=== PATIENT | female | born 1985 | race Caucasian/White ===

== ENCOUNTER → 2016-02-09 | Outpatient (CLI) | payer MEDICAID ==
[2016-02-09 14:46] LABS: HEMATOCRIT 33.6 % (36.0-47.0); HEMOGLOBIN 11.4 g/dL (12.0-15.5); HGB HCT DIFFERENCE 0.6; MEAN CORPUSCULAR HEMOGLOBIN 28.5 pg (27.0-33.4); MEAN CORPUSCULAR HGB CONC 33.8 g/dL (32.0-36.0); MEAN CORPUSCULAR VOLUME 84 fl (80-97); RED BLOOD COUNT 3.99 10^6/uL (3.72-5.28); WHITE BLOOD COUNT 10.1 10^3/uL (4.0-10.5)
[2016-02-09 15:00] LABS: ASPARTATE AMINO TRANSFERASE 16 U/L (14-36); CREATININE RESULT 0.56 mg/dL (0.52-1.25); LDH 360 U/L (313-618); URIC ACID 3.6 mg/dL (2.5-6.2)
== END ==
LOC: OD 13:42
PROVIDERS: ATTEND Registered Nurse Women's Health Care, Ambulatory
DX: O14.90 Unspecified pre-eclampsia, unspecified trimester (principal)
CPT/HCPCS: 36415; 82565; 83615; 84450; 84460; 84550; 85027

== ENCOUNTER → 2016-02-14 | Outpatient (CLI) | payer MEDICAID ==
[2016-02-14 11:37] LABS: HEMATOCRIT 34.5 % (36.0-47.0); HEMOGLOBIN 11.5 g/dL (12.0-15.5); MEAN CORPUSCULAR HEMOGLOBIN 28.1 pg (27.0-33.4); MEAN CORPUSCULAR HGB CONC 33.3 g/dL (32.0-36.0); MEAN CORPUSCULAR VOLUME 85 fl (80-97); RED BLOOD COUNT 4.09 10^6/uL (3.72-5.28); RED CELL DISTRIBUTION WIDTH 12.5 % (11.5-14.0); WHITE BLOOD COUNT 9.1 10^3/uL (4.0-10.5)
[2016-02-14 11:55] LABS: ASPARTATE AMINO TRANSFERASE 16 U/L (14-36); LDH 387 U/L (313-618); URIC ACID 3.5 mg/dL (2.5-6.2)
[2016-02-14 12:15] LABS: FREE T3 3.32 pg/mL (2.77-5.27)
[2016-02-14 12:28] LABS: THYROID STIMULATING HORMONE 2.83 uIU/mL (0.47-4.68)
== END ==
LOC: OD 10:56
PROVIDERS: ATTEND Registered Nurse Women's Health Care, Ambulatory
DX: O14.90 Unspecified pre-eclampsia, unspecified trimester (principal); O99.280 Endocrine, nutritional and metabolic diseases complicating pregnancy, unspecified trimester; E03.9 Hypothyroidism, unspecified
CPT/HCPCS: 36415; 82565; 82728; 83540; 83550; 83615; 84439; 84443; 84450; 84481; 84550; 85027

== ENCOUNTER → 2016-02-21 | Outpatient (CLI) | payer MEDICAID ==
[2016-02-21 12:38] LABS: HEMOGLOBIN 10.5 g/dL (12.0-15.5); HGB HCT DIFFERENCE -0.5; MEAN CORPUSCULAR HEMOGLOBIN 27.9 pg (27.0-33.4); MEAN CORPUSCULAR HGB CONC 32.9 g/dL (32.0-36.0); MEAN CORPUSCULAR VOLUME 85 fl (80-97); RED BLOOD COUNT 3.78 10^6/uL (3.72-5.28); WHITE BLOOD COUNT 9.4 10^3/uL (4.0-10.5)
[2016-02-21 12:45] LABS: APPEARANCE,URINE CLEAR; BILIRUBIN,URINE NEGATIVE (NEGATIVE); GLUCOSE, URINE NEGATIVE (NEGATIVE); KETONES,URINE NEGATIVE (NEGATIVE); LEUKOCYTE ESTERASE,URINE NEGATIVE (NEGATIVE); NITRITE,URINE NEGATIVE (NEGATIVE); PROTEIN,URINE NEGATIVE (NEGATIVE); URINE SPECIFIC GRAVITY 1.006; UROBILINOGEN,URINE NEGATIVE mg/dL (<2.0)
[2016-02-21 13:09] LABS: ASPARTATE AMINO TRANSFERASE 27 U/L (14-36); CREATININE RESULT 0.63 mg/dL (0.52-1.25); LDH 391 U/L (313-618)
== END ==
LOC: OD 11:45
PROVIDERS: ATTEND Registered Nurse Women's Health Care, Ambulatory
DX: O14.90 Unspecified pre-eclampsia, unspecified trimester (principal); Z3A.00 Weeks of gestation of pregnancy not specified
CPT/HCPCS: 36415; 81001; 82565; 83615; 84450; 85027

== ENCOUNTER → 2016-02-28 | Outpatient (CLI) | payer MEDICAID ==
[2016-02-28 14:24] LABS: HEMATOCRIT 31.6 % (36.0-47.0); HEMOGLOBIN 10.2 g/dL (12.0-15.5); MEAN CORPUSCULAR HEMOGLOBIN 27.3 pg (27.0-33.4); MEAN CORPUSCULAR HGB CONC 32.2 g/dL (32.0-36.0); MEAN CORPUSCULAR VOLUME 85 fl (80-97); RED BLOOD COUNT 3.72 10^6/uL (3.72-5.28); RED CELL DISTRIBUTION WIDTH 13.1 % (11.5-14.0); WHITE BLOOD COUNT 10.1 10^3/uL (4.0-10.5)
[2016-02-28 14:41] LABS: CARBON DIOXIDE 25 mmol/L (22-30); CHLORIDE 103 mmol/L (98-107); CREATININE RESULT 0.62 mg/dL (0.52-1.25); POTASSIUM 3.9 mmol/L (3.6-5.0)
[2016-02-28 14:42] LABS: ANION GAP 9 (5-19); ASPARTATE AMINO TRANSFERASE 25 U/L (14-36); LDH 527 U/L (313-618); SODIUM 136.9 mmol/L (137-145); URIC ACID 4.5 mg/dL (2.5-6.2)
== END ==
LOC: OD 13:56
PROVIDERS: ATTEND Registered Nurse Women's Health Care, Ambulatory
DX: O14.90 Unspecified pre-eclampsia, unspecified trimester (principal); Z3A.00 Weeks of gestation of pregnancy not specified
CPT/HCPCS: 36415; 80051; 82565; 83615; 84450; 84550; 85027

== ENCOUNTER 2016-03-06 11:59 | Outpatient (CLI) | payer MEDICAID ==
[2016-03-06 13:15] LABS: APPEARANCE,URINE CLEAR; BILIRUBIN,URINE NEGATIVE (NEGATIVE); GLUCOSE, URINE NEGATIVE (NEGATIVE); KETONES,URINE NEGATIVE (NEGATIVE); LEUKOCYTE ESTERASE,URINE NEGATIVE (NEGATIVE); NITRITE,URINE NEGATIVE (NEGATIVE); PROTEIN,URINE NEGATIVE (NEGATIVE); URINE SPECIFIC GRAVITY 1.004; UROBILINOGEN,URINE NEGATIVE mg/dL (<2.0)
[2016-03-06 13:24] LABS: ABSOLUTE EOSINOPHILS # (AUTO) 0.1 10^3/uL (0.0-0.6); ABSOLUTE LYMPHOCYTES (AUTO) 1.4 10^3/uL (0.5-4.7); ABSOLUTE NEUT (AUTO) 6.8 10^3/uL (1.7-8.2); BASOPHILS % (AUTO) 0.2 % (0-2); EOSINOPHILS % (AUTO) 0.9 % (0-6); HEMATOCRIT 30.4 % (36.0-47.0); HGB HCT DIFFERENCE -0.4; LYMPHOCYTES % (AUTO) 15.3 % (13-45); MEAN CORPUSCULAR HEMOGLOBIN 27.5 pg (27.0-33.4); MEAN CORPUSCULAR VOLUME 83 fl (80-97); MONOCYTES % (AUTO) 10.3 % (3-13); RED BLOOD COUNT 3.64 10^6/uL (3.72-5.28); RED CELL DISTRIBUTION WIDTH 13.2 % (11.5-14.0); SEGMENTED NEUTROPHILS % (AUTO) 73.3 % (42-78); WHITE BLOOD COUNT 9.3 10^3/uL (4.0-10.5)
[2016-03-06 13:44] LABS: URINE BARBITURATES SCREEN NEGATIVE; URINE METHADONE SCREEN NEGATIVE; URINE OPIATES LOW NEGATIVE; URINE PHENCYCLIDINE SCREEN NEGATIVE
[2016-03-06 13:50] LABS: ALANINE AMINOTRANSFERASE 33 U/L (9-52); ALBUMIN 2.8 g/dL (3.5-5.0); ALKALINE PHOSPHATASE 95 U/L (38-126); ANION GAP 8 (5-19); ASPARTATE AMINO TRANSFERASE 17 U/L (14-36); BILIRUBIN,TOTAL 0.4 mg/dL (0.2-1.3); BLOOD UREA NITROGEN 9 mg/dL (7-20); CALCIUM 9.5 mg/dL (8.4-10.2); CARBON DIOXIDE 28 mmol/L (22-30); CHLORIDE 103 mmol/L (98-107); CREATININE RESULT 0.66 mg/dL (0.52-1.25); GLUCOSE 75 mg/dL (75-110); LDH 425 U/L (313-618); POTASSIUM 4.4 mmol/L (3.6-5.0); SODIUM 138.6 mmol/L (137-145); TOTAL PROTEIN 5.8 g/dL (6.3-8.2); URIC ACID 3.9 mg/dL (2.5-6.2)
== END 2016-03-06 14:01 | disposition home or self-care (01) ==
LOC: ER 11:59 → LC 14:01
PROVIDERS: ATTEND Student in an Organized Health Care Education/Training Program
PROC: 4A1HXCZ Monitoring of Products of Conception, Cardiac Rate, External Approach (ICD-10-PCS; principal; 2016-03-06)
DX: Z34.93 Encounter for supervision of normal pregnancy, unspecified, third trimester (principal); Z36 Encounter for antenatal screening of mother; Z3A.35 35 weeks gestation of pregnancy
CPT/HCPCS: 36415; 59025; 80053; 80307; 81001; 83615; 84550; 85025

== ENCOUNTER 2016-03-09 10:17 | Outpatient (CLI) | payer MEDICAID ==
[2016-03-09 11:03] LABS: ABSOLUTE EOSINOPHILS # (AUTO) 0.1 10^3/uL (0.0-0.6); ABSOLUTE LYMPHOCYTES (AUTO) 1.6 10^3/uL (0.5-4.7); ABSOLUTE MONOCYTES (AUTO) 1.2 10^3/uL (0.1-1.4); ABSOLUTE NEUT (AUTO) 9.4 10^3/uL (1.7-8.2); BASOPHILS % (AUTO) 0.2 % (0-2); EOSINOPHILS % (AUTO) 0.5 % (0-6); HEMATOCRIT 32.8 % (36.0-47.0); HEMOGLOBIN 10.9 g/dL (12.0-15.5); HGB HCT DIFFERENCE -0.1; MEAN CORPUSCULAR HEMOGLOBIN 27.6 pg (27.0-33.4); MEAN CORPUSCULAR HGB CONC 33.4 g/dL (32.0-36.0); MEAN CORPUSCULAR VOLUME 83 fl (80-97); MONOCYTES % (AUTO) 9.5 % (3-13); RED BLOOD COUNT 3.96 10^6/uL (3.72-5.28); RED CELL DISTRIBUTION WIDTH 13.7 % (11.5-14.0); SEGMENTED NEUTROPHILS % (AUTO) 76.8 % (42-78); WHITE BLOOD COUNT 12.3 10^3/uL (4.0-10.5)
[2016-03-09 11:06] LABS: APPEARANCE,URINE SLIGHTLY-CLOUDY; BILIRUBIN,URINE NEGATIVE (NEGATIVE); GLUCOSE, URINE NEGATIVE (NEGATIVE); KETONES,URINE NEGATIVE (NEGATIVE); LEUKOCYTE ESTERASE,URINE NEGATIVE (NEGATIVE); NITRITE,URINE NEGATIVE (NEGATIVE); PROTEIN,URINE NEGATIVE (NEGATIVE); URINE SPECIFIC GRAVITY 1.009; UROBILINOGEN,URINE NEGATIVE mg/dL (<2.0)
[2016-03-09 11:19] LABS: ALANINE AMINOTRANSFERASE 27 U/L (9-52); ALBUMIN 3.4 g/dL (3.5-5.0); ALKALINE PHOSPHATASE 116 U/L (38-126); ANION GAP 11 (5-19); ASPARTATE AMINO TRANSFERASE 19 U/L (14-36); BILIRUBIN,TOTAL 0.4 mg/dL (0.2-1.3); BLOOD UREA NITROGEN 7 mg/dL (7-20); CALCIUM 9.9 mg/dL (8.4-10.2); CARBON DIOXIDE 22 mmol/L (22-30); CHLORIDE 105 mmol/L (98-107); CREATININE RESULT 0.64 mg/dL (0.52-1.25); GLUCOSE 102 mg/dL (75-110); LDH 448 U/L (313-618); POTASSIUM 4.3 mmol/L (3.6-5.0); SODIUM 138.2 mmol/L (137-145); TOTAL PROTEIN 6.2 g/dL (6.3-8.2); URIC ACID 4.5 mg/dL (2.5-6.2)
[2016-03-09 11:40] LABS: URINE BARBITURATES SCREEN NEGATIVE; URINE METHADONE SCREEN NEGATIVE; URINE OPIATES LOW NEGATIVE; URINE PHENCYCLIDINE SCREEN NEGATIVE
--- NOTE | 2016-03-09 12:01 | L&D Flow Sheet ---
LD Flowsheet Datetime Report Generated by CPN: 03/09/2016 12:00 Datetime: 03/09/2016 11:59 NBP Sys/Tori/Mean (mmHg): 151 (QS system process) : 72 (QS system process) : 101 (QS system process) Pulse: 82 (QS system process) LaborFlag: Antepartum (QS system process) Datetime: 03/09/2016 11:56 NBP Sys/Tori/Mean (mmHg): 169 (QS system process) : 96 (QS system process) : 122 (QS system process) Pulse: 90 (QS system process) Vital Sign Comments: Pt laying on cuff, cuff repositioned to Lt arm (Philly Arellano RN) LaborFlag: Antepartum (QS system process) Datetime: 03/09/2016 11:47 Patient Position/Activity: Right Lateral; Semi-Fowlers (Philly Arellano, RN) Datetime: 03/09/2016 11:46 NBP Sys/Tori/Mean (mmHg): 138 (QS system process) : 72 (QS system process) : 99 (QS system process) Pulse: 83 (QS system process) LaborFlag: Antepartum (QS system process) Datetime: 03/09/2016 11:43 I/O Interventions: Up to BR (Philly Marhefka, RN) Datetime: 03/09/2016 11:29 I/O Interventions: Popsicle (Philly Marhefka, RN) Datetime: 03/09/2016 11:26 NBP Sys/Tori/Mean (mmHg): 136 (QS system process) : 75 (QS system process) : 99 (QS system process) Pulse: 86 (QS system process) LaborFlag: Antepartum (QS system process) Datetime: 03/09/2016 11:11 NBP Sys/Tori/Mean (mmHg): 139 (QS system process) : 75 (QS system process) : 101 (QS system process) Pulse: 92 (QS system process) LaborFlag: Antepartum (QS system process) Datetime: 03/09/2016 11:00 Monitor Mode: External; Palpation (Philly Marhefka, RN) Frequency (min): Pt denies (Philly Marhefka, RN) Quality: Mild (Philly Marhefka, RN) Resting Tone (Palpate): Relaxed (Philly Marhefka, RN) Monitor Mode: External US (Philly Marhefka, RN) FHR Baseline Rate : 170 (Philly Marhefka, RN) FHR Baseline Changes: Tachycardia (Philly Marhefka, RN) Variability: Moderate 6-25 bpm (Philly Marhefka, RN) Accelerations: 10X10 (Philly Marhefka, RN) Decelerations: None (Philly Marhefka, RN) Datetime: 03/09/2016 10:56 NBP Sys/Tori/Mean (mmHg): 139 (QS system process) : 80 (QS system process) : 101 (QS system process) Pulse: 96 (QS system process) LaborFlag: Antepartum (QS system process) Datetime: 03/09/2016 10:41 NBP Sys/Tori/Mean (mmHg): 146 (QS system process) : 81 (QS system process) : 107 (QS system process) Pulse: 108 (QS system process) Temperature (F): 98.8 (Philly Arellano RN) Temperature (C): 37.1 (QS system process) Temperature Route: Oral (Philly Arellano RN) LaborFlag: Antepartum (QS system process) Datetime: 03/09/2016 10:40 Pain Scale: 0 (Philly Arellano RN) Pain Presence: None/Denies (Philly Arellano RN) Pain Type: N/A (Philly Arellano RN) Pain Goal: 0 (Philly Arellano RN) Pain Relief Measures: Comfort Measures (Philly Arellano RN) Membrane Status: Intact (Philly Arellano RN) Vaginal Bleeding: None (Philly Arellano RN) Level of Consciousness: Fully Conscious (Philly Arellano RN) DTR's/Clonus: DTRs 2+; No Clonus (Philly Arellano RN) Headache: Denies (Philly Arellano RN) Breath Sounds, Left: Clear and Equal (Philly Arellano RN) Breath Sounds, Right: Clear and Equal (Philly Arellano RN) Nausea/Vomiting: Denies (Philly Arellano RN) RUQ Epigastric Pain: Denies (Philly Arellano RN) LaborFlag: Antepartum (QS system process) Datetime: 03/09/2016 10:37 Patient Position/Activity: Left Lateral; Low Fowlers (Philly Arellano, RN) Datetime: 03/09/2016 10:34 IV/Blood Work: Labs Drawn (Philly Arellano, RN) Datetime: 03/09/2016 10:28 Patient Care Comments: Pt in restroom (Philly Arellano RN)
--- NOTE | 2016-03-09 12:15 | Non Stress Test Report ---
Non Stress Test Datetime Report Generated by CPN: 03/09/2016 12:15 DEMOGRAPHIC EGA NST: 35.3 INDICATION Indication for Study: Gestational Hypertension; Ordered by Provider MONITORING Monitor Explained: Monitor Explained; Test Explained; Patient Verbalized Understanding Time on Monitor: 03/09/2016 10:38 Time off Monitor: 03/09/2016 12:00 NST Duration: 82 NST INTERVENTIONS NST Interventions: PO Hydration; Reposition Patient Physician Notified NST: Dr. Malave BABY A Movement : Present Contraction Frequency : Pt denies FHR Baseline : 155 Accelerations : 15X15 Decelerations : None Variability : Moderate 6-25bpm NST Review and Verified By : Toyin Camp RNC NST COMMENTS NST Comments: care notes reviewed and signed for kick counts NST REPORT Report Trigger: Send Report
== END 2016-03-09 12:04 | disposition home or self-care (01) ==
LOC: LC 10:17
PROVIDERS: ATTEND Obstetrics & Gynecology
PROC: 4A1HXCZ Monitoring of Products of Conception, Cardiac Rate, External Approach (ICD-10-PCS; principal; 2016-03-09)
DX: O13.3 Gestational [pregnancy-induced] hypertension without significant proteinuria, third trimester (principal); Z3A.35 35 weeks gestation of pregnancy
CPT/HCPCS: 36415; 59025; 80053; 80307; 81001; 83615; 84550; 85025

== ENCOUNTER 2016-03-13 10:30 | Inpatient (IN) | payer MEDICAID ==
[2016-03-13 11:25] LABS: ABSOLUTE EOSINOPHILS # (AUTO) 0.1 10^3/uL (0.0-0.6); ABSOLUTE LYMPHOCYTES (AUTO) 1.3 10^3/uL (0.5-4.7); ABSOLUTE NEUT (AUTO) 6.4 10^3/uL (1.7-8.2); BASOPHILS % (AUTO) 0.2 % (0-2); EOSINOPHILS % (AUTO) 0.9 % (0-6); HEMATOCRIT 32.2 % (36.0-47.0); HEMOGLOBIN 10.7 g/dL (12.0-15.5); HGB HCT DIFFERENCE -0.1; LYMPHOCYTES % (AUTO) 15.3 % (13-45); MEAN CORPUSCULAR HEMOGLOBIN 27.4 pg (27.0-33.4); MEAN CORPUSCULAR HGB CONC 33.3 g/dL (32.0-36.0); MEAN CORPUSCULAR VOLUME 82 fl (80-97); MONOCYTES % (AUTO) 11.6 % (3-13); RED BLOOD COUNT 3.92 10^6/uL (3.72-5.28); RED CELL DISTRIBUTION WIDTH 13.7 % (11.5-14.0); WHITE BLOOD COUNT 8.8 10^3/uL (4.0-10.5)
[2016-03-13 11:28] LABS: APPEARANCE,URINE SLIGHTLY-CLOUDY; BILIRUBIN,URINE NEGATIVE (NEGATIVE); GLUCOSE, URINE NEGATIVE (NEGATIVE); KETONES,URINE NEGATIVE (NEGATIVE); LEUKOCYTE ESTERASE,URINE NEGATIVE (NEGATIVE); NITRITE,URINE NEGATIVE (NEGATIVE); PROTEIN,URINE NEGATIVE (NEGATIVE); URINE SPECIFIC GRAVITY 1.005; UROBILINOGEN,URINE NEGATIVE mg/dL (<2.0)
[2016-03-13 11:43] LABS: URINE BARBITURATES SCREEN NEGATIVE; URINE METHADONE SCREEN NEGATIVE; URINE OPIATES LOW NEGATIVE; URINE PHENCYCLIDINE SCREEN NEGATIVE
[2016-03-13 11:51] LABS: ALANINE AMINOTRANSFERASE 36 U/L (9-52); ALBUMIN 2.9 g/dL (3.5-5.0); ALKALINE PHOSPHATASE 120 U/L (38-126); ANION GAP 8 (5-19); ASPARTATE AMINO TRANSFERASE 26 U/L (14-36); BILIRUBIN,TOTAL 0.3 mg/dL (0.2-1.3); BLOOD UREA NITROGEN 9 mg/dL (7-20); CALCIUM 9.3 mg/dL (8.4-10.2); CARBON DIOXIDE 27 mmol/L (22-30); CHLORIDE 103 mmol/L (98-107); CREATININE RESULT 0.67 mg/dL (0.52-1.25); GLUCOSE 84 mg/dL (75-110); LDH 485 U/L (313-618); POTASSIUM 4.1 mmol/L (3.6-5.0); SODIUM 138.4 mmol/L (137-145); TOTAL PROTEIN 5.9 g/dL (6.3-8.2); URIC ACID 4.5 mg/dL (2.5-6.2)
[2016-03-13] MEDS ORDERED: OXYTOCIN/NORMAL SALINE 1,000 ML IV PRN (12:01)
[2016-03-13] MEDS ORDERED: RINGERS SOLUTION,LACTATED 1,000 ML IV PRN (12:01)
[2016-03-13] MEDS ORDERED: OXYTOCIN/NORMAL SALINE 20 UNIT/1,000 ML RTUINJ ONE ×2 (12:01→20:44)
--- NOTE | 2016-03-13 12:01 | L&D Flow Sheet ---
LD Flowsheet Datetime Report Generated by CPN: 03/13/2016 12:00 Datetime: 03/13/2016 11:54 Unit Routine: Consents Signed (Philly Marhefka, RN) Datetime: 03/13/2016 11:51 Vital Signs NBP Sys/Tori/Mean (mmHg): 148 (QS system process) : 70 (QS system process) : 101 (QS system process) Pulse: 86 (QS system process) Communication LaborFlag: Antepartum (QS system process) Datetime: 03/13/2016 11:39 Vaginal Exam Dilatation (cm): 1.0 (Philly Arellano RN) Effacement (%): 50 (Philly Arellano RN) Station: -2 (Philly Arellano RN) Exam by: Cedric Arellano RN (Philly Arellano RN) Vaginal Bleeding: None (Philly Arellano RN) Cervix, Consistency: Soft (Philly Arellano RN) Cervix, Position: Posterior (Philly Arellano RN) Teaching Instructional Method: Verbal; Patient Instructed; Verbalized Understanding (Philly Arellano RN) Plan of Care: Plan of Care Discussed (Philly Arellano RN) Unit Routine: [place] to Room; Call Barrera; Bed; Visiting Policy; Unit Personnel; Monitoring; Bathroom Privileges (Philly Arellano RN) Labor/Induction: Labor Stages (Philly Arellano RN) Datetime: 03/13/2016 11:36 Vital Signs NBP Sys/Tori/Mean (mmHg): 152 (QS system process) : 72 (QS system process) : 104 (QS system process) Pulse: 87 (QS system process) Communication LaborFlag: Antepartum (QS system process) Datetime: 03/13/2016 11:21 Vital Signs NBP Sys/Tori/Mean (mmHg): 154 (QS system process) : 95 (QS system process) : 120 (QS system process) Pulse: 98 (QS system process) Communication LaborFlag: Antepartum (QS system process) Datetime: 03/13/2016 11:08 Patient Care IV/Blood Work: Labs Drawn (Philly Marhefka, RN) Datetime: 03/13/2016 11:00 Temperature (F): 98.1 (Philly Marhefka, RN) Temperature (C): 36.7 (QS system process) Communication LaborFlag: Antepartum (QS system process)
[2016-03-13] MEDS ORDERED: PENICILLIN G-K 5 MILLION UNIT VIAL ONE ×3 (12:38→20:48)
--- NOTE | 2016-03-13 14:01 | L&D Flow Sheet ---
LD Flowsheet Datetime Report Generated by CPN: 03/13/2016 14:00 Datetime: 03/13/2016 13:52 NBP Sys/Tori/Mean (mmHg): 166 (QS system process) : 80 (QS system process) : 113 (QS system process) Pulse: 86 (QS system process) LaborFlag: Antepartum (QS system process) Datetime: 03/13/2016 13:37 NBP Sys/Tori/Mean (mmHg): 138 (QS system process) : 67 (QS system process) : 96 (QS system process) Pulse: 75 (QS system process) Respirations: 16 (Philly Marhefka, RN) LaborFlag: Antepartum (QS system process) Datetime: 03/13/2016 13:30 Monitor Mode: External (Philly Marhefka, RN) Frequency (min): 2-3 (Philly Marhefka, RN) Quality: Mild (Philly Marhefka, RN) Duration (sec): 50-60 (Philly Marhefka, RN) Resting Tone (Palpate): Relaxed (Philly Marhefka, RN) Monitor Mode: External US (Philly Marhefka, RN) FHR Baseline Rate : 135 (Philly Marhefka, RN) FHR Baseline Changes: No Baseline Change (Philly Marhefka, RN) Variability: Moderate 6-25 bpm (Philly Marhefka, RN) Accelerations: 15X15 (Philly Marhefka, RN) Decelerations: None (Philly Marhefka, RN) Datetime: 03/13/2016 13:21 NBP Sys/Tori/Mean (mmHg): 136 (QS system process) : 75 (QS system process) : 99 (QS system process) Pulse: 75 (QS system process) LaborFlag: Antepartum (QS system process) Datetime: 03/13/2016 13:15 Monitor Mode: External (Philly Marhefka, RN) Frequency (min): 3-5 (Philly Fouziahefka, RN) Quality: Mild (Philly Marhefka, RN) Duration (sec): 40-50 (Philly Marhefka, RN) Resting Tone (Palpate): Relaxed (Philly Marhefka, RN) Monitor Mode: External US (Philly Marhefka, RN) FHR Baseline Rate : 135 (Philly Marhefka, RN) FHR Baseline Changes: No Baseline Change (Philly Marhefka, RN) Variability: Moderate 6-25 bpm (Philly Marhefka, RN) Accelerations: 15X15 (Philly Marhefka, RN) Decelerations: None (Philly Marhefka, RN) Pitocin (milliunit): Pitocin Increased to (milliunits) @ (Annotations: 8) (Philly Marhefka, RN) Datetime: 03/13/2016 13:06 NBP Sys/Tori/Mean (mmHg): 138 (QS system process) : 74 (QS system process) : 99 (QS system process) Pulse: 80 (QS system process) Respirations: 16 (Philly Arellano RN) LaborFlag: Antepartum (QS system process) Datetime: 03/13/2016 13:00 Monitor Mode: External (Philly Arellano RN) Frequency (min): 2-3 (Philly Arellano RN) Quality: Mild (Philly Arellano RN) Duration (sec): 40-50 (Philly Arellano RN) Resting Tone (Palpate): Relaxed (Philly Arellano RN) Monitor Interventions for FHR: Ultrasound Adjusted (Philly Arellano RN) Comments: UTD RN @ bedside, ultrasound adjusted (Philly Arellano RN) Pitocin (milliunit): Pitocin Remains (milliunits) @ (Annotations: 6) (Philly Arellano RN) Datetime: 03/13/2016 12:51 NBP Sys/Tori/Mean (mmHg): 140 (QS system process) : 76 (QS system process) : 102 (QS system process) Pulse: 83 (QS system process) LaborFlag: Antepartum (QS system process) Datetime: 03/13/2016 12:45 Monitor Mode: External (Philly Arellano RN) Frequency (min): 2-3 (Philly Arellano RN) Quality: Mild (Philly Arellano RN) Duration (sec): 40-60 (Philly Arellano RN) Resting Tone (Palpate): Relaxed (Philly Arellano RN) Monitor Mode: External US (Philly Arellano, EMIR) FHR Baseline Rate : 150 (Philly Arellano RN) FHR Baseline Changes: No Baseline Change (Philly Arellano RN) Variability: Moderate 6-25 bpm (Philly Arellano, RN) Accelerations: 15X15 (Philly Arellano, RN) Decelerations: None (Philly Arellano, EMIR) Pitocin (milliunit): Pitocin Increased to (milliunits) @ (Annotations: 6) (Philly Arellano RN) Antibiotics: Penicillin IV (Units) @ 5 Million Units (Philly Arellano RN) Datetime: 03/13/2016 12:36 NBP Sys/Tori/Mean (mmHg): 135 (QS system process) : 76 (QS system process) : 99 (QS system process) Pulse: 83 (QS system process) Respirations: 16 (Philly Arellano RN) LaborFlag: Antepartum (QS system process) Datetime: 03/13/2016 12:30 Monitor Mode: External (Philly Arellano, RN) Frequency (min): X1 (Philly Arellano, RN) Quality: Mild (Philly Suzanka, RN) Duration (sec): 40 (Philly Mareska, RN) Resting Tone (Palpate): Relaxed (Philly Mareska, RN) Monitor Mode: External US (Philly Arellano, RN) FHR Baseline Rate : 155 (Philly Arellano RN) FHR Baseline Changes: No Baseline Change (Philly Mareska, RN) Variability: Moderate 6-25 bpm (Philly Marmagifka, RN) Accelerations: None (Philly Breanafka, RN) Decelerations: None (Philly Arellano, RN) Pitocin (milliunit): Pitocin Increased to (milliunits) @ (Annotations: 4) (Philly Marhefka, RN) Datetime: 03/13/2016 12:15 Monitor Mode: External; Palpation (Philly Marhefka, RN) Frequency (min): No ctxs noted (Philly Marhefka, RN) Quality: Mild (Philly Marhefka, RN) Resting Tone (Palpate): Relaxed (Philly Marhefka, RN) Monitor Mode: External US (Philly Marhefka, RN) FHR Baseline Rate : 155 (Philly Marhefka, RN) FHR Baseline Changes: No Baseline Change (Philly Marhefka, RN) Variability: Moderate 6-25 bpm (Philly Marhefka, RN) Accelerations: 10X10 (Philly Marhefka, RN) Decelerations: None (Philly Marhefka, RN) Datetime: 03/13/2016 12:14 I/O Interventions: Up to BR (Philly Marhefka, RN) Datetime: 03/13/2016 12:10 Pitocin (milliunit): Pitocin Started (milliunits) @ 2 (Philly Marhefka, RN) Datetime: 03/13/2016 12:06 NBP Sys/Tori/Mean (mmHg): 146 (QS system process) : 72 (QS system process) : 103 (QS system process) Pulse: 81 (QS system process) LaborFlag: Antepartum (QS system process) Datetime: 03/13/2016 12:00 Monitor Mode: External (Philly Marhefka, RN) Frequency (min): Irregular (Philly Arellano RN) Quality: Mild (Philly Arellano RN) Duration (sec): 60 (Philly Arellano RN) Resting Tone (Palpate): Relaxed (Philly Arellano RN) Monitor Mode: External US (Philly Arellano RN) FHR Baseline Rate : 155 (Philly Arellano RN) FHR Baseline Changes: No Baseline Change (Philly Arellano RN) Variability: Moderate 6-25 bpm (Philly Arellano RN) Accelerations: 15X15 (Philly Arellano RN) Decelerations: None (Philly Arellano RN)
--- NOTE | 2016-03-13 16:01 | L&D Flow Sheet ---
LD Flowsheet Datetime Report Generated by CPN: 03/13/2016 16:00 Datetime: 03/13/2016 15:52 NBP Sys/Tori/Mean (mmHg): 147 (QS system process) : 70 (QS system process) : 101 (QS system process) Pulse: 88 (QS system process) LaborFlag: Antepartum (QS system process) Datetime: 03/13/2016 15:36 NBP Sys/Tori/Mean (mmHg): 133 (QS system process) : 72 (QS system process) : 96 (QS system process) Pulse: 94 (QS system process) Respirations: 16 (Philly Breanafka, RN) LaborFlag: Antepartum (QS system process) Datetime: 03/13/2016 15:30 Monitor Interventions for UA: [place] Adjusted (Philly Arellano, RN) Contraction Comments: RN @ bedside adjusting toco (Philly Arellano RN) Monitor Mode: External US (Philly Arellano RN) FHR Baseline Rate : 135 (Philly Toussaintfli, RN) FHR Baseline Changes: No Baseline Change (Philly Breanafka, RN) Variability: Moderate 6-25 bpm (Philly Marhefka, RN) Accelerations: None (Philly Marhefka, RN) Decelerations: None (Philly Breanafka, RN) Pitocin (milliunit): Pitocin Remains (milliunits) @ (Annotations: 12) (Philly Arellano, RN) Datetime: 03/13/2016 15:15 Monitor Mode: External; Palpation (Philly Arellano RN) Frequency (min): 2-3 (Philly Arellano RN) Quality: Mild (Philly Arellano RN) Duration (sec): 50-60 (Philly Arellano RN) Resting Tone (Palpate): Relaxed (Philly Arellano RN) Monitor Mode: External US (Philly Arellano RN) Monitor Interventions for FHR: Ultrasound Adjusted (Philly Arellano RN) FHR Baseline Changes: No Baseline Change (Philly Arellano RN) Variability: Moderate 6-25 bpm (Philyl Arellano RN) Accelerations: 15X15 (Philly Arellano RN) Decelerations: None (Philly Arellano RN) Comments: Previous baseline 130. Acceleration noted followed by FHR falling off monitor, RN @ bedside adjusting ultrasound. (Philly Arellano RN) Pitocin (milliunit): Pitocin Remains (milliunits) @ (Annotations: 12) (Philly Arellano RN) Datetime: 03/13/2016 15:11 Patient Position/Activity: Right Lateral; Semi-Fowlers (Philly Arellano RN) Datetime: 03/13/2016 15:06 NBP Sys/Tori/Mean (mmHg): 142 (QS system process) : 77 (QS system process) : 102 (QS system process) Pulse: 82 (QS system process) LaborFlag: Antepartum (QS system process) Datetime: 03/13/2016 15:00 Monitor Mode: External (Philly Marmagifka, RN) Frequency (min): 2.5-3 (Philly Marhefka, RN) Quality: Mild (Philly Marhefka, RN) Duration (sec): 50-60 (Philly Marhefka, RN) Resting Tone (Palpate): Relaxed (Philly Marhefka, RN) Monitor Mode: External US (Philly Marhefka, RN) FHR Baseline Rate : 130 (Philly Marhefka, RN) FHR Baseline Changes: No Baseline Change (Philly Marhefka, RN) Variability: Moderate 6-25 bpm (Philly Marhefka, RN) Accelerations: 15X15 (Philly Marhefka, RN) Decelerations: None (Philly Marhefka, RN) Pitocin (milliunit): Pitocin Increased to (milliunits) @ (Annotations: 12) (Philly Marhefka, RN) Datetime: 03/13/2016 14:51 NBP Sys/Tori/Mean (mmHg): 147 (QS system process) : 77 (QS system process) : 105 (QS system process) Pulse: 88 (QS system process) LaborFlag: Antepartum (QS system process) Datetime: 03/13/2016 14:45 Monitor Mode: External (Philly Arellano, RN) Frequency (min): 2-3 (Philly Arellano, RN) Quality: Mild (Philly Marhefka, RN) Duration (sec): 40-60 (Philly Breanafka, RN) Resting Tone (Palpate): Relaxed (Philly Arellano, RN) Monitor Mode: External US (Philly Arellano, RN) FHR Baseline Rate : 130 (Philly Marhefka, RN) FHR Baseline Changes: No Baseline Change (Philly Marhefka, RN) Variability: Moderate 6-25 bpm (Philly Marhefka, RN) Accelerations: None (Philly Marhefka, RN) Decelerations: None (Philly Marhefka, RN) Pitocin (milliunit): Pitocin Remains (milliunits) @ (Annotations: 10) (Philly Eileen, RN) Datetime: 03/13/2016 14:37 NBP Sys/Tori/Mean (mmHg): 146 (QS system process) : 83 (QS system process) : 106 (QS system process) Pulse: 82 (QS system process) LaborFlag: Antepartum (QS system process) Datetime: 03/13/2016 14:30 Monitor Mode: External (Philly Arellano, RN) Frequency (min): 2-4 (Philly Arellano, RN) Quality: Mild (Philly Suzanka, RN) Duration (sec): 40-70 (Philly Fouziahefka, RN) Resting Tone (Palpate): Relaxed (Philly Breanafka, RN) Monitor Mode: External US (Philly Arellano, RN) FHR Baseline Rate : 130 (Philly Breanafka, RN) FHR Baseline Changes: No Baseline Change (Philly Breanafka, RN) Variability: Moderate 6-25 bpm (Philly Marhefka, RN) Accelerations: 15X15 (Philly Fouziahefka, RN) Decelerations: None (Philly Suzanka, RN) Pitocin (milliunit): Pitocin Remains (milliunits) @ (Annotations: 10) (Philly Arellano RN) Patient Care Comments: Cook Catheter inserted by Dr. Rashid (Philly Arellano RN) Datetime: 03/13/2016 14:23 NBP Sys/Tori/Mean (mmHg): 140 (QS system process) : 71 (QS system process) : 99 (QS system process) Pulse: 76 (QS system process) LaborFlag: Antepartum (QS system process) Datetime: 03/13/2016 14:15 Monitor Mode: External (Philly Arellano RN) Frequency (min): 2-4 (Philly Arellano RN) Quality: Mild (Philly Arellano RN) Duration (sec): 50-60 (Philly Arellano RN) Resting Tone (Palpate): Relaxed (Philly Arellano RN) Monitor Mode: External US (Philly Arellano RN) FHR Baseline Rate : 130 (Philly Marhefka, RN) FHR Baseline Changes: No Baseline Change (Philly Marhefka, RN) Variability: Moderate 6-25 bpm (Philly Marhefka, RN) Accelerations: 15X15 (Philly Marhefka, RN) Decelerations: None (Philly Marhefka, RN) Pitocin (milliunit): Pitocin Remains (milliunits) @ (Annotations: 10) (Philly Marhefka, RN) Datetime: 03/13/2016 14:07 NBP Sys/Tori/Mean (mmHg): 132 (QS system process) : 72 (QS system process) : 97 (QS system process) Pulse: 77 (QS system process) LaborFlag: Antepartum (QS system process) Datetime: 03/13/2016 14:00 Monitor Mode: External (Philly Marhefka, RN) Frequency (min): 2-3 (Philly Marhefka, RN) Quality: Mild (Philly Marhefka, RN) Duration (sec): 40-60 (Philly Marhefka, RN) Resting Tone (Palpate): Relaxed (Philly Marhefka, RN) Monitor Mode: External US (Philly Arellano RN) FHR Baseline Rate : 130 (Philly Arellano RN) FHR Baseline Changes: No Baseline Change (Philly Arellano RN) Variability: Moderate 6-25 bpm (Philly Arellano RN) Accelerations: 15X15 (Philly Arellano RN) Decelerations: None (Philly Arellano RN) Pitocin (milliunit): Pitocin Remains (milliunits) @ (Annotations: 10) (Philly Arellano RN)
[2016-03-13 16:32] LABS: CHLAM PCR NOT DETECTED (NOT DETECT)
--- NOTE | 2016-03-13 18:01 | L&D Flow Sheet ---
LD Flowsheet Datetime Report Generated by CPN: 03/13/2016 18:00 Datetime: 03/13/2016 17:57 NBP Sys/Tori/Mean (mmHg): 159 (QS system process) : 73 (QS system process) : 106 (QS system process) Pulse: 97 (QS system process) LaborFlag: Antepartum (QS system process) Datetime: 03/13/2016 17:52 NBP Sys/Tori/Mean (mmHg): 172 (QS system process) : 83 (QS system process) : 117 (QS system process) Pulse: 100 (QS system process) Respirations: 14 (Philly Arellano RN) Vital Sign Comments: Pt stated that she was bending her arm, changing her wet pads when the BP cuff went off (Philly Arellano RN) LaborFlag: Antepartum (QS system process) Datetime: 03/13/2016 17:45 Monitor Mode: External US (Philly Arellano RN) FHR Baseline Rate : 145 (Philly Arellano, RN) FHR Baseline Changes: No Baseline Change (Philly Arellano, RN) Variability: Moderate 6-25 bpm (Philly Toussaintfka, RN) Accelerations: 15X15 (Philly Toussaintfka, RN) Decelerations: None (Philly Arellano, RN) Pitocin (milliunit): Pitocin Increased to (milliunits) @ (Annotations: 16) (Philly Arellano, RN) Datetime: 03/13/2016 17:36 NBP Sys/Tori/Mean (mmHg): 146 (QS system process) : 85 (QS system process) : 110 (QS system process) Pulse: 93 (QS system process) LaborFlag: Antepartum (QS system process) Datetime: 03/13/2016 17:31 Dilatation (cm): 4.5 (Philly Arellano RN) Effacement (%): 75 (Philly Arellano RN) Station: -2 (Philly Arellano RN) Exam by: Dr. Rashid (Philly Arellano RN) Membrane Status: Ruptured (Philly Arellano RN) Membranes Rupture Method: Artificial (Philly Arellano RN) Amniotic Fluid Color: Clear (Philly Arellano RN) Amniotic Fluid Amount: Large (Philly Arellano RN) Amniotic Fluid Odor: Normal (Philly Arellano RN) Datetime: 03/13/2016 17:30 Monitor Mode: External US (Philly Arellano RN) FHR Baseline Rate : 140 (Philly Arellano RN) FHR Baseline Changes: No Baseline Change (Philly Arellano RN) Variability: Moderate 6-25 bpm (Philly Arellano RN) Accelerations: 15X15 (Philly Arellano RN) Decelerations: None (Philly Arellano RN) Pitocin (milliunit): Pitocin Remains (milliunits) @ (Annotations: 14) (Philly Arellano RN) Patient Care Comments: jaramillo bulb removed (Philly Arellano RN) Datetime: 03/13/2016 17:22 NBP Sys/Tori/Mean (mmHg): 141 (QS system process) : 86 (QS system process) : 108 (QS system process) Pulse: 91 (QS system process) LaborFlag: Antepartum (QS system process) Datetime: 03/13/2016 17:15 Comments: UTD RN @ bedside searching FHTs. (Philly Arellano RN) Pitocin (milliunit): Pitocin Remains (milliunits) @ (Annotations: 14) (Philly Arellano RN) Datetime: 03/13/2016 17:06 NBP Sys/Tori/Mean (mmHg): 142 (QS system process) : 80 (QS system process) : 105 (QS system process) Pulse: 86 (QS system process) LaborFlag: Antepartum (QS system process) Datetime: 03/13/2016 17:00 Comments: UTD RN @ bedside adjusting FHTs (Philly Marhefka, RN) Pitocin (milliunit): Pitocin Remains (milliunits) @ (Annotations: 14) (Philly Marhefka, RN) Datetime: 03/13/2016 16:51 NBP Sys/Tori/Mean (mmHg): 136 (QS system process) : 76 (QS system process) : 101 (QS system process) Pulse: 82 (QS system process) LaborFlag: Antepartum (QS system process) Datetime: 03/13/2016 16:46 Monitor Mode: External US (Philly Arellano, RN) FHR Baseline Rate : 140 (Philly Marhefka, RN) FHR Baseline Changes: No Baseline Change (Philly Marhefka, RN) Variability: Moderate 6-25 bpm (Philly Marhefka, RN) Accelerations: 15X15 (Philly Marhefka, RN) Decelerations: None (Philly Marhefka, RN) Datetime: 03/13/2016 16:45 Pitocin (milliunit): Pitocin Increased to (milliunits) @ (Annotations: 14) (Philly Arellano RN) Antibiotics: Penicillin IV (Units) @ (Annotations: 2.5 Million ) (Philly Marhefka, RN) Datetime: 03/13/2016 16:38 NBP Sys/Tori/Mean (mmHg): 136 (QS system process) : 71 (QS system process) : 97 (QS system process) Pulse: 83 (QS system process) LaborFlag: Antepartum (QS system process) Datetime: 03/13/2016 16:30 Monitor Mode: External US (Philly Arellano, RN) FHR Baseline Rate : 140 (Philly Marmagifka, RN) FHR Baseline Changes: No Baseline Change (Philly Marhefka, RN) Variability: Moderate 6-25 bpm (Philly Marhefka, RN) Accelerations: 15X15 (Philly Marhefka, RN) Decelerations: None (Philly Marhefka, RN) Pitocin (milliunit): Pitocin Remains (milliunits) @ (Annotations: 12) (Philly Marhefka, RN) Datetime: 03/13/2016 16:22 NBP Sys/Tori/Mean (mmHg): 144 (QS system process) : 71 (QS system process) : 100 (QS system process) Pulse: 90 (QS system process) LaborFlag: Antepartum (QS system process) Datetime: 03/13/2016 16:15 Monitor Mode: External US (Philly Marhefka, RN) FHR Baseline Rate : 140 (Philly Marhefka, RN) FHR Baseline Changes: No Baseline Change (Philly Marhefka, RN) Variability: Moderate 6-25 bpm (Philly Marhefka, RN) Accelerations: 15X15 (Philly Marhefka, RN) Decelerations: None (Philly Marhefka, RN) Pitocin (milliunit): Pitocin Remains (milliunits) @ (Annotations: 12) (Philly Marhefka, RN) Datetime: 03/13/2016 16:06 NBP Sys/Tori/Mean (mmHg): 145 (QS system process) : 73 (QS system process) : 100 (QS system process) Pulse: 93 (QS system process) LaborFlag: Antepartum (QS system process) Datetime: 03/13/2016 16:00 Monitor Mode: External US (Philly Arellano RN) FHR Baseline Rate : 135 (Philly Arellano RN) FHR Baseline Changes: No Baseline Change (Philly Arellano RN) Variability: Moderate 6-25 bpm (Philly Arellano RN) Accelerations: None (Philly Arellano RN) Decelerations: None (Philly Arellano RN) Pitocin (milliunit): Pitocin Remains (milliunits) @ (Annotations: 12) (Philly Arellano RN)
--- NOTE | 2016-03-13 20:01 | L&D Flow Sheet ---
LD Flowsheet Datetime Report Generated by CPN: 03/13/2016 20:00 Datetime: 03/13/2016 19:58 Monitor Interventions for UA: Tucker Adjusted (Chelsea Keanu, RN) Datetime: 03/13/2016 19:56 Monitor Interventions for FHR: Ultrasound Adjusted (Chelsea Keanu, RN) Comments: Maternal HR clearly auscultated (Chelsea Keanu, RN) Communication: RN at Bedside (Chelsea Keanu, RN) Datetime: 03/13/2016 19:51 NBP Sys/Tori/Mean (mmHg): 152 (QS system process) : 72 (QS system process) : 106 (QS system process) Pulse: 79 (QS system process) LaborFlag: Antepartum (QS system process) Datetime: 03/13/2016 19:37 NBP Sys/Tori/Mean (mmHg): 154 (QS system process) : 77 (QS system process) : 107 (QS system process) Pulse: 85 (QS system process) LaborFlag: Antepartum (QS system process) Datetime: 03/13/2016 19:30 Level of Consciousness: Fully Conscious (Chelsea Keanu, RN) DTR's/Clonus: DTRs 2+; No Clonus (Chelsea Keanu, RN) Headache: Denies (Chelsea Keanu, RN) Breath Sounds, Left: Clear and Equal (Chelsea Keanu, RN) Breath Sounds, Right: Clear and Equal (Chelsea Keanu, RN) Nausea/Vomiting: Denies (Chelsea Keanu, RN) RUQ Epigastric Pain: Denies (Chelsea Keanu, RN) Datetime: 03/13/2016 19:23 I/O Interventions: Up to BR (Philly Breanafka, RN) Datetime: 03/13/2016 19:22 NBP Sys/Tori/Mean (mmHg): 162 (QS system process) : 79 (QS system process) : 112 (QS system process) Pulse: 93 (QS system process) LaborFlag: Antepartum (QS system process) Datetime: 03/13/2016 19:15 Monitor Mode: External (Philly Marhefka, RN) Frequency (min): 2-4 (Philly Marhefka, RN) Quality: Mild/Moderate (Philly Marhefka, RN) Duration (sec): 40-70 (Philly Marhefka, RN) Resting Tone (Palpate): Relaxed (Philly Marhefka, RN) Monitor Mode: External US (Philly Marhefka, RN) FHR Baseline Rate : 140 (Philly Marhefka, RN) FHR Baseline Changes: No Baseline Change (Philly Marhefka, RN) Variability: Moderate 6-25 bpm (Philly Marhefka, RN) Accelerations: None (Philly Marhefka, RN) Decelerations: None (Philly Marhefka, RN) Pitocin (milliunit): Pitocin Remains (milliunits) @ (Annotations: 18) (Philly Marhefka, RN) Datetime: 03/13/2016 19:07 NBP Sys/Tori/Mean (mmHg): 163 (QS system process) : 84 (QS system process) : 115 (QS system process) Pulse: 94 (QS system process) LaborFlag: Antepartum (QS system process) Datetime: 03/13/2016 19:00 Monitor Mode: External (Philly Marhefka, RN) Frequency (min): 2-3 (Philly Marhefka, RN) Quality: Mild/Moderate (Philly Marhefka, RN) Duration (sec): 40-50 (Philly Marhefka, RN) Resting Tone (Palpate): Relaxed (Philly Marhefka, RN) Monitor Mode: External US (Philly Marhefka, RN) FHR Baseline Rate : 140 (Philly Marhefka, RN) FHR Baseline Changes: No Baseline Change (Philly Marhefka, RN) Variability: Moderate 6-25 bpm (Philly Marhefka, RN) Accelerations: 15X15 (Philly Marhefka, RN) Decelerations: None (Philly Marhefka, RN) Pitocin (milliunit): Pitocin Remains (milliunits) @ (Annotations: 18) (Philly Marhefka, RN) Datetime: 03/13/2016 18:51 NBP Sys/Tori/Mean (mmHg): 156 (QS system process) : 85 (QS system process) : 112 (QS system process) Pulse: 84 (QS system process) LaborFlag: Antepartum (QS system process) Datetime: 03/13/2016 18:45 Monitor Mode: External (Philly Arellano, RN) Frequency (min): 2-3 (Philly Eileen, RN) Quality: Mild/Moderate (Philly Marhefka, RN) Duration (sec): 40-60 (Philly Eileen, RN) Resting Tone (Palpate): Relaxed (Philly Arellano, RN) Monitor Mode: External US (Philly Arellano, RN) FHR Baseline Rate : 135 (Philly Breanafka, RN) FHR Baseline Changes: No Baseline Change (Philly Breanafka, RN) Variability: Moderate 6-25 bpm (Philly Marhefka, RN) Accelerations: 15X15 (Philly Marhefka, RN) Decelerations: None (Philly Marmagifka, RN) Pitocin (milliunit): Pitocin Remains (milliunits) @ (Annotations: 18) (Philly Suzanka, RN) Datetime: 03/13/2016 18:37 NBP Sys/Tori/Mean (mmHg): 160 (QS system process) : 82 (QS system process) : 114 (QS system process) Pulse: 98 (QS system process) LaborFlag: Antepartum (QS system process) Datetime: 03/13/2016 18:30 Monitor Mode: External (Philly Arellano, RN) Frequency (min): 2-3 (Philly Arellano, RN) Quality: Mild/Moderate (Philly Arellano, RN) Duration (sec): 40-80 (Philly Arellano, RN) Resting Tone (Palpate): Relaxed (Philly Arellano, RN) Monitor Mode: External US (Philly Arellano, RN) FHR Baseline Rate : 140 (Philly Arellano, RN) FHR Baseline Changes: No Baseline Change (Philly Arellano, RN) Variability: Moderate 6-25 bpm (Phlily Mareska, RN) Accelerations: None (Philly Mareska, RN) Decelerations: None (Philly Mareska, RN) Pitocin (milliunit): Pitocin Remains (milliunits) @ (Annotations: 18) (Philly Arellano, RN) Datetime: 03/13/2016 18:22 NBP Sys/Tori/Mean (mmHg): 160 (QS system process) : 82 (QS system process) : 113 (QS system process) Pulse: 93 (QS system process) Respirations: 16 (Philly Marhefka, RN) Temperature (F): 97.8 (Philly Marhefka, RN) Temperature (C): 36.6 (QS system process) Temperature Route: Oral (Philly Marhefka, RN) LaborFlag: Antepartum (QS system process) Datetime: 03/13/2016 18:15 Monitor Mode: External (Philly Marhefka, RN) Frequency (min): 2-3 (Philly Marhefka, RN) Quality: Mild/Moderate (Philly Marhefka, RN) Duration (sec): 40-60 (Philly Marhefka, RN) Resting Tone (Palpate): Relaxed (Philly Marhefka, RN) Monitor Mode: External US (Philly Marhefka, RN) FHR Baseline Rate : 145 (Philly Marhefka, RN) FHR Baseline Changes: No Baseline Change (Philly Marhefka, RN) Variability: Moderate 6-25 bpm (Philly Marhefka, RN) Accelerations: 15X15 (Philly Marhefka, RN) Decelerations: None (Philly Marhefka, RN) Pitocin (milliunit): Pitocin Increased to (milliunits) @ (Annotations: 18) (Philly Marhefka, RN) Datetime: 03/13/2016 18:06 NBP Sys/Tori/Mean (mmHg): 156 (QS system process) : 76 (QS system process) : 109 (QS system process) Pulse: 86 (QS system process) Respirations: 16 (Philly Marhefka, RN) LaborFlag: Antepartum (QS system process) Datetime: 03/13/2016 18:00 Monitor Mode: External (Philly Marhefka, RN) Frequency (min): 2-3 (Philly Marhefka, RN) Quality: Mild/Moderate (Philly Marhefka, RN) Duration (sec): 40-50 (Philly Marhefka, RN) Resting Tone (Palpate): Relaxed (Philly Arellano RN) Monitor Mode: External US (Philly Arellano RN) FHR Baseline Rate : 150 (Philly Arellano RN) FHR Baseline Changes: No Baseline Change (Philly Arellano RN) Variability: Moderate 6-25 bpm (Philly Arellano RN) Accelerations: None (Philly Arellano RN) Decelerations: None (Philly Arellano RN) Pitocin (milliunit): Pitocin Remains (milliunits) @ (Annotations: 16) (Philly Arellano RN)
--- NOTE | 2016-03-13 20:38 | L&D Progress Notes ---
PROGRESS NOTES Datetime Report Generated by CPN: 03/13/2016 20:38 PROGRESS NOTE Impression: Normal Progression of Labor Procedures: Sterile Vag Exam Plan: Continue Present Management; Induction Informed Consent Obtained: Vaginal Delivery; Risks, Benefits and Alternatives Discussed Vital Signs : Reviewed; Within Normal Limits Comment: IOL for PreE. BPs mild range. No sx at this time. Cvx change noted since AROM at 1731 (FB removed as it was in vaging and AROM at 1731). Doing well. CAT I FHR tracing. Reassuring FWB. Anticiapte . Declines epidural at this time VAGINAL EXAM Dilatation: 7 Effacement: 80 Station: -2 Contractions: q3-4 MEMBRANES Pooling: Positive Membranes: Ruptured FETUS A FHR - Baseline: 125 Monitoring: External US Variability: Moderate 6-25bpm Decelerations: None : 36.0 Presentation: Vertex SIGNATURE SIGNATURE: [id number] SIGNATURE: [id number] SIGNATURE: [id number] Signature: with User ID: [email or web address] : I personally evaluated and examined the patient in conjunction with the MLP and agree with the assessment, treatment plan and disposition.
[2016-03-13] MEDS ORDERED: MISOPROSTOL 0.2 MG TABLET ONE (20:43)
[2016-03-13] MEDS ORDERED: LIDOCAINE 1% INJ-PF (10 MG/ML) 30 ML SDV ONE (20:44)
[2016-03-13] MEDS ORDERED: METHYLERGONOVINE MALEATE INJ/PF 0.2 MG/1 ML AMPULE ONE (20:44)
[2016-03-13] MEDS ORDERED: MAGNESIUM SULFATE 100 ML IV ONE (21:00)
[2016-03-13] MEDS ORDERED: MAGNESIUM SULFATE 4 GM/100 ML RTUPB IV ONE (21:01)
[2016-03-13] MEDS ORDERED: MAGNESIUM SULFATE 500 ML IV PRN (21:01)
[2016-03-13] MEDS ORDERED: OXYTOCIN 10 UNIT/ML VIAL ONE (21:07)
--- NOTE | 2016-03-13 21:08 | L&D Progress Notes ---
PROGRESS NOTES Datetime Report Generated by CPN: 03/13/2016 21:08 PROGRESS NOTE Impression: Normal Progression of Labor Procedures: Artificial ROM Plan: Continue Present Management; Induction Informed Consent Obtained: Vaginal Delivery; Risks, Benefits and Alternatives Discussed Vital Signs : Reviewed Comment: IOL for Severe PreE based on severe range BPs (greater than 4 hours apart with known PreE). Cvx now /-2 with adequate change since FB out at 1731 and AROM with clear fluid. Pt initially with normal to mild range BPs now with increasing BPs to severe range BPs will initiate Magnesium sulfate for seizure prophylaxis. She is o/w doing well and w/o symptoms. Will recheck [facility] labs. Anticpate VAGINAL EXAM Dilatation: 7 Effacement: 80 Station: -2 Contractions: q 2-3 FETUS A FHR - Baseline: 130 Monitoring: External US Accelerations: 15X15 Decelerations: None FHR Category: Category I FETUS C SIGNATURE: [id number] Signature: with User ID: [email or web address]
[2016-03-13] MEDS ORDERED: HYDRALAZINE HCL INJ/PF 20 MG/1 ML SDV ONE (21:09)
[2016-03-13] MEDS ORDERED: HYDRALAZINE HCL INJ/PF 20 MG/1 ML SDV IV ONE (21:11)
[2016-03-13 21:58] LABS: ABSOLUTE EOSINOPHILS # (AUTO) 0.1 10^3/uL (0.0-0.6); ABSOLUTE MONOCYTES (AUTO) 1.2 10^3/uL (0.1-1.4); ABSOLUTE NEUT (AUTO) 9.5 10^3/uL (1.7-8.2); BASOPHILS % (AUTO) 0.3 % (0-2); EOSINOPHILS % (AUTO) 0.6 % (0-6); HEMOGLOBIN 9.9 g/dL (12.0-15.5); HGB HCT DIFFERENCE -0.3; LYMPHOCYTES % (AUTO) 15.7 % (13-45); MEAN CORPUSCULAR HEMOGLOBIN 26.9 pg (27.0-33.4); MEAN CORPUSCULAR HGB CONC 32.9 g/dL (32.0-36.0); MEAN CORPUSCULAR VOLUME 82 fl (80-97); RED BLOOD COUNT 3.68 10^6/uL (3.72-5.28); RED CELL DISTRIBUTION WIDTH 13.6 % (11.5-14.0); SEGMENTED NEUTROPHILS % (AUTO) 74.4 % (42-78); WHITE BLOOD COUNT 12.7 10^3/uL (4.0-10.5)
--- NOTE | 2016-03-13 22:01 | L&D Flow Sheet ---
LD Flowsheet Datetime Report Generated by CPN: 03/13/2016 22:00 Datetime: 03/13/2016 21:54 NBP Sys/Tori/Mean (mmHg): 151 (QS system process) : 74 (QS system process) : 107 (QS system process) Pulse: 93 (QS system process) LaborFlag: Antepartum (QS system process) Datetime: 03/13/2016 21:45 Monitor Mode: External (Chelsea Keanu, RN) Frequency (min): 3-7 (Chelsea Keanu, RN) Quality: Moderate (Chelsea Keanu, RN) Duration (sec): 60-70 (Chelsea Keanu, RN) Resting Tone (Palpate): Relaxed (Chelsea Keanu, RN) Monitor Mode: External US (Chelsea Keanu, RN) FHR Baseline Rate : 135 (Chelsea Keanu, RN) Variability: Moderate 6-25 bpm (Chelsea Keanu, RN) Accelerations: 15X15 (Chelsea Keanu, RN) Decelerations: None (Chelsea Keanu, RN) Pitocin (milliunit): Pitocin Remains (milliunits) @ 20 (Chelsea Keanu, RN) Datetime: 03/13/2016 21:37 NBP Sys/Tori/Mean (mmHg): 142 (QS system process) : 67 (QS system process) : 97 (QS system process) Pulse: 94 (QS system process) LaborFlag: Antepartum (QS system process) Datetime: 03/13/2016 21:35 Magnesium/Antihypertensives: Magnesium Sulfate IV (Gm/hr) @ 1 (Chelsea Colunga RN) Medication Comments: bolus completed (Chelsea Coulnga RN) IV/Blood Work: Labs Drawn (Chelsea Colunga RN) Patient Care Comments: repeat pre-e labs drawn per orders from Dr Rashid (Chelsea Colunga RN) Datetime: 03/13/2016 21:32 NBP Sys/Tori/Mean (mmHg): 146 (QS system process) : 69 (QS system process) : 99 (QS system process) Pulse: 93 (QS system process) LaborFlag: Antepartum (QS system process) Datetime: 03/13/2016 21:30 Monitor Mode: External; Palpation (Chelsea Colunga RN) Frequency (min): 2-5 (Chelsea Colunga RN) Quality: Moderate (Chelsea Colunga RN) Duration (sec): 40-60 (Chelsea Colunga RN) Resting Tone (Palpate): Relaxed (Chelsea Colunga RN) Monitor Mode: External US (Chelsea Keanu, RN) FHR Baseline Rate : 135 (Chelsea Keanu, RN) Variability: Moderate 6-25 bpm (Chelsea Keanu, RN) Accelerations: 15X15 (Chelsea Keanu, RN) Decelerations: None (Chelsea Keanu, RN) Pitocin (milliunit): Pitocin Remains (milliunits) @ 20 (Chelsea Keanu, RN) Datetime: 03/13/2016 21:23 Comments: maternal HR tracing (Chelsea Keanu, RN) Medication Comments: hydralazine 5 mg IVP per orders from Dr Rashid administered by Tommie Pastor RN (Chelsea Keanu, RN) Datetime: 03/13/2016 21:21 NBP Sys/Tori/Mean (mmHg): 165 (QS system process) : 85 (QS system process) : 116 (QS system process) Pulse: 90 (QS system process) LaborFlag: Antepartum (QS system process) Datetime: 03/13/2016 21:20 Level of Consciousness: Fully Conscious (Chelsea Keanu, RN) DTR's/Clonus: DTRs 2+; No Clonus (Chelsea Keanu, RN) Headache: Denies (Chelsea Keanu, RN) Breath Sounds, Left: Clear and Equal (Chelsea Keanu, RN) Breath Sounds, Right: Clear and Equal (Chelsea Keanu, RN) Nausea/Vomiting: Denies (Chelsea Keanu, RN) RUQ Epigastric Pain: Denies (Chelsea Keanu, RN) Patient Position/Activity: Left Lateral (Chelsea Keanu, RN) Datetime: 03/13/2016 21:18 I/O Interventions: Mohan Cath Inserted (Chelsea Keanu, RN) I/O Interventions: Mohan Cath Inserted (Annotations: 14fr ) (Deneen Berger) Datetime: 03/13/2016 21:16 NBP Sys/Tori/Mean (mmHg): 178 (QS system process) : 95 (QS system process) : 127 (QS system process) Pulse: 110 (QS system process) LaborFlag: Antepartum (QS system process) Datetime: 03/13/2016 21:15 Monitor Mode: External (Chelsea Colunga, RN) Frequency (min): 1.5-4 (Chelsea Colunga, RN) Quality: Moderate (Chelsea Keanu, RN) Duration (sec): 40-70 (Chelseasang Colunga, RN) Resting Tone (Palpate): Relaxed (Chelsea Colunga, RN) Monitor Mode: External US (Chelsea Colunga, RN) FHR Baseline Rate : 135 (Chelsea Keanu, RN) Variability: Moderate 6-25 bpm (Chelsea Keanu, RN) Accelerations: 15X15 (Chelsea Keanu, RN) Decelerations: None (Chelsea Colunga, RN) Pitocin (milliunit): Pitocin Remains (milliunits) @ 20 (Chelsea Colunga RN) Magnesium/Antihypertensives: Magnesium Sulfate IV Loading (Gm) @ 4 (Chelsea Keanu, RN) Datetime: 03/13/2016 21:13 Medication Comments: hydralazine 5 mg IVP per orders from Dr Rachid (Chelsea Keanu, RN) Datetime: 03/13/2016 21:07 NBP Sys/Tori/Mean (mmHg): 196 (QS system process) : 85 (QS system process) : 122 (QS system process) Pulse: 88 (QS system process) LaborFlag: Antepartum (QS system process) Datetime: 03/13/2016 21:00 Monitor Mode: External (Chelsea Keanu, RN) Frequency (min): 2-4 (Chelsea Colunga RN) Quality: Moderate (Chelsea Colunga RN) Duration (sec): 50-70 (Chelsea Colunga RN) Resting Tone (Palpate): Relaxed (Chelsea Colunga RN) Monitor Mode: External US (Chelsea Colunga RN) FHR Baseline Rate : 135 (Chelsea Colunga RN) Variability: Moderate 6-25 bpm (Chelsea Colunga RN) Accelerations: 15X15 (Chelsea Colunga RN) Decelerations: None (Chelsea Colunga RN) Pitocin (milliunit): Pitocin Remains (milliunits) @ 20 (Chelsea Colunga RN) Communication: Provider at Bedside; Provider Orders Received (Chelsea Colunga RN) Communication Comments: Orders for magnesium sulfate administration 4 g loading dose, 1 gm/hr maintenance dose (Chelsea Colunga RN) Datetime: 03/13/2016 20:57 Antibiotics: Penicillin IV (Units) @ 2,500,000 (Chelsea Colunga, EMIR) Datetime: 03/13/2016 20:55 NBP Sys/Tori/Mean (mmHg): 172 (QS system process) : 82 (QS system process) : 117 (QS system process) Pulse: 82 (QS system process) LaborFlag: Antepartum (QS system process) Datetime: 03/13/2016 20:53 NBP Sys/Tori/Mean (mmHg): 180 (QS system process) : 86 (QS system process) : 124 (QS system process) Pulse: 89 (QS system process) LaborFlag: Antepartum (QS system process) Datetime: 03/13/2016 20:45 Monitor Mode: External (Chelsea Keanu, RN) Frequency (min): 2-3 (Chelsea Keanu, RN) Quality: Moderate (Chelsea Keanu, RN) Duration (sec): 50-70 (Chelsea Keanu, RN) Resting Tone (Palpate): Relaxed (Chelsea Keanu, RN) Monitor Mode: External US (Chelsea Keanu, RN) FHR Baseline Rate : 140 (Chelsea Keanu, RN) Variability: Moderate 6-25 bpm (Chelsea Keanu, RN) Accelerations: 10X10 (Chelsea Keanu, RN) Decelerations: None (Chelsea Keanu, RN) Pitocin (milliunit): Pitocin Remains (milliunits) @ 20 (Chelsea Keanu, RN) Datetime: 03/13/2016 20:36 Patient Position/Activity: Tailors (Chelsea Keanu, RN) Datetime: 03/13/2016 20:31 Dilatation (cm): 7.0 (Chelsea Keanu, RN) Effacement (%): 90 (Chelsea Keanu, RN) Station: -2 (Chelsea Keanu, RN) Exam by: Dr Rashid (Chelsea Keanu, RN) Datetime: 03/13/2016 20:30 Monitor Mode: External (Chelsea Keanu, RN) Frequency (min): 2-4 (Chelsea Keanu, RN) Quality: Moderate (Chelsea Keanu, RN) Duration (sec): 50-70 (Chelsea Keanu, RN) Resting Tone (Palpate): Relaxed (Chelsea Keanu, RN) Monitor Mode: External US (Chelsea Keanu, RN) FHR Baseline Rate : 140 (Chelsea Keanu, RN) Variability: Moderate 6-25 bpm (Chelsea Keanu, RN) Accelerations: 15X15 (Chelsea Keanu, RN) Decelerations: None (Chelsea Keanu, RN) Pitocin (milliunit): Pitocin Remains (milliunits) @ 20 (Chelsea Keanu, RN) Datetime: 03/13/2016 20:21 NBP Sys/Tori/Mean (mmHg): 153 (QS system process) : 82 (QS system process) : 111 (QS system process) Pulse: 75 (QS system process) LaborFlag: Antepartum (QS system process) Datetime: 03/13/2016 20:15 Monitor Mode: External (Chelsea Keanu, RN) Frequency (min): 3-5 (Chelsea Keanu, RN) Quality: Moderate (Chelsea Keanu, RN) Duration (sec): 50-70 (Chelsea Keanu, RN) Resting Tone (Palpate): Relaxed (Chelsea Keanu, RN) Monitor Mode: External US (Chelsea Keanu, RN) FHR Baseline Rate : 140 (Chelsea Keanu, RN) Variability: Moderate 6-25 bpm (Chelsea Keanu, RN) Accelerations: 15X15 (Chelsea Keanu, RN) Decelerations: None (Chelsea Keanu, RN) Pitocin (milliunit): Pitocin Remains (milliunits) @ 20 (Chelsea Keanu, RN) Datetime: 03/13/2016 20:06 NBP Sys/Tori/Mean (mmHg): 150 (QS system process) : 79 (QS system process) : 107 (QS system process) Pulse: 86 (QS system process) LaborFlag: Antepartum (QS system process) Datetime: 03/13/2016 20:00 Monitor Mode: External (Chelsea Colunga RN) Frequency (min): 2-4 (Chelsea Colunga RN) Quality: Moderate (Chelsea Colunga RN) Duration (sec): 50-70 (Chelsea Colunga RN) Resting Tone (Palpate): Relaxed (Chelsea Colunga RN) Monitor Mode: External US (Chelsea Colunga RN) FHR Baseline Rate : 145 (Chelsea Colunga RN) Variability: Moderate 6-25 bpm (Chelsea Colunga RN) Accelerations: 10X10 (Chelsea Colunga RN) Decelerations: None (Chelsea Colunga RN) Pitocin (milliunit): Pitocin Remains (milliunits) @ 20 (Chelsea Colunga RN)
[2016-03-13 22:21] LABS: ALANINE AMINOTRANSFERASE 30 U/L (9-52); ALBUMIN 2.8 g/dL (3.5-5.0); ALKALINE PHOSPHATASE 123 U/L (38-126); ANION GAP 7 (5-19); ASPARTATE AMINO TRANSFERASE 22 U/L (14-36); BILIRUBIN,TOTAL 0.4 mg/dL (0.2-1.3); BLOOD UREA NITROGEN 6 mg/dL (7-20); CALCIUM 8.8 mg/dL (8.4-10.2); CARBON DIOXIDE 23 mmol/L (22-30); CHLORIDE 105 mmol/L (98-107); CREATININE RESULT 0.54 mg/dL (0.52-1.25); GLUCOSE 102 mg/dL (75-110); LDH 435 U/L (313-618); POTASSIUM 3.9 mmol/L (3.6-5.0); SODIUM 135.4 mmol/L (137-145); TOTAL PROTEIN 5.4 g/dL (6.3-8.2)
[2016-03-14] MEDS ORDERED: FENTANYL CITRATE INJ/PF 100 MCG/2 ML AMPUL ONE (00:48)
[2016-03-14] MEDS ORDERED: PENICILLIN G-K 5 MILLION UNIT VIAL ONE (02:17)
--- NOTE | 2016-03-14 05:38 | Delivery Summary ---
Del Sum A-C Datetime Report Generated by CPN: 03/14/2016 05:37 ADMISSION DATA Indication for Induction: Gest. HTN/PreEclampsia/Eclampsia Admission Impression: , Intrauterine ; Induction of Labor Admission Impression Comments: Sent by [facility] for IOL for pre-eclampsia w severe range B/P readings 1 wk apart Admit Provider Comments: Proven for 9lbs 7oz Pre-eclampsia x 5 pregnancies Hx SIDS at 8 wks in 2013 Obesity Hypothyroidism Hx anxiety/depresssion-on meds Multiple tattoos Hx 2 first trimester losses-on Prometrium Total protein of 578 on 01/06/16 Will proceed with IOL with Pitocin per recommendation from [facility] for preeclampsia with severe range b/p x2 1 wk apart DELIVERY PERSONNEL Delivery Doctor:: Darling Rashid MD Labor and Delivery Nurse:: Chelsea Colunga RNphotograph enlarger Nurse:: Roslyn Murillo RN Nursery Nurse:: Darlin Schwab RN MSN Counter Dish Carrier/PIPE STRIPPER: Millie Dykes, UPHOLSTERY CUTTER MATERNAL INFORMATION Delivery Anesthesia: None Medications After Delivery: Pitocin Bolus-Please Comment; Other-Please Comment Meds After Delivery Comment: pitocin 40 units in 1000 mL NSS after delivery of placenta; cytotec 1000 mcg ND Maternal Complications: None Provider Comments: VFI delivered in ALEXI presentation with body cord. Shoulders and body delivered without difficulty. Cord doubly clamped and cut and intant to maternal abdomen for NRP. Placenta delivered intact spontaneously. FF at U. mild uterine atony resolved with crudee and misoprostol and pitocin administration. Good hemostasis. No perineal laceration. Weight 7#1oz, Apgars 7/9. LABOR SUMMARY EDC: 04/10/2016 00:00 No. Babies in Womb: 1 Attempted: No Labor Anesthesia: IV Sedation LABOR INFORMATION Reason for Induction: Pre-Eclampsia Onset of Labor: 03/13/2016 17:31 Complete Dilatation: 03/14/2016 04:03 Cervical Ripening Agents: Other Other Ripening Agents: jaramillo bulb Oxytocin: Induction Group B Beta Strep: Unknown Antibiotics # of Doses: 4 Antibiotics Time of Last Dose: 221 Name of Antibiotic Given: Penicillin Steroids Given: None Reason Steroids Not Administered: Not Applicable MEMBRANES Membranes Rupture Method: Artificial Rupture of Membranes: 03/13/2016 17:31 Length of Rupture (hr): 10.65 Amniotic Fluid Color: Clear Amniotic Fluid Amount: Large Amniotic Fluid Odor: Normal STAGES OF LABOR Stage 1 hr: 10 Stage 1 min: 32 Stage 2 hr: 0 Stage 2 min: 7 Stage 3 hr: 0 Stage 3 min: 7 Total Time in Labor hr: 10 Total Time in Labor min: 46 VAGINAL DELIVERY Episiotomy: None Laceration Extension: N/A Laceration Type: None Sponge Count Correct: N/A Sharps Count Correct: N/A CSECTION DELIVERY Primary Indication: N/A Secondary Indication: N/A CSection Incidence: N/A Labor: N/A Elective: N/A CSection Incision: N/A BABY A INFORMATION Infant Delivery Date/Time: 03/14/2016 04:10 Method of Delivery: Vaginal Born in Route : No : N/A Forceps: N/A Vacuum Extraction: N/A Shoulder Dystocia : No PRESENTATION/POSITION BABY A Presentation: Cephalic Cephalic Presentation: Vertex Vertex Position: Right Occipital Anterior Breech Presentation: N/A PLACENTA INFORMATION BABY A Placenta Delivery Time : 03/14/2016 04:17 Placenta Method of Delivery: Spontaneous Placenta Status: Delivered SCORES BABY A Heart Rate 1 min: >100 bpm Resp Effort 1 min: Good Cry Reflex Irritability 1 min: Cough or Sneeze or Pulls Away Muscle Tone 1 min: Some Flexion of Extremities Color 1 min: Blue/Pale SCORE 1 MIN: 7 Heart Rate 5 min: >100 bpm Resp Effort 5 min: Good Cry Reflex Irritability 5 min: Cough or Sneeze or Pulls Away Muscle Tone 5 min: Active Motion Color 5 min: Body [place], Extremities Blue SCORE 5 MIN: 9 INFORMATION BABY A Gestational Age at Delivery: 36.1 Gestational Status: Late - 34- 36.6 Weeks Infant Outcome : Liveborn Condition : Stable Infant Sex: Female IDENTIFICATION BABY A Verification Date/Time: 03/14/2016 04:22 ID Band Number: [id number] Mother's Name Verified: Yes RN Verifying : Madelin Carter, RN _ C. Fore, RN WEIGHT/LENGTH BABY A Infant Birthweight (gm): 3205 Weight (lb): 7 Weight (oz): 1 Length (in): 19.50 Infant Length (cm): 49.53 CORD INFORMATION BABY A No. Cord Vessels: 3 Nuchal Cord : N/A Nuchal Cord- Other: Body Cord Blood Taken: Yes-For Storage (Mom's Blood type +) Suction: Mouth; Nose ASSESSMENT BABY A Complications: None Skin to Skin: Yes Skin to Skin Time (min): 60 [employer] Tech/ALS Called : No Infant Care By: Antonieta Schwab RN Transferred To: [facility] BABY B INFORMATION : N/A SIGNATURES Signature: with User ID: [email or web address] : I personally evaluated and examined the patient in conjunction with the MLP and agree with the assessment, treatment plan and disposition.
[2016-03-14] MEDS ORDERED: IBUPROFEN 800 MG TABLET ONE ×2 (05:54→11:01)
[2016-03-14] MEDS ORDERED: ACETAMINOPHEN WITH CODEINE #3 TABLET ONE ×2 (05:54→11:06)
[2016-03-14] MEDS ORDERED: ACETAMINOPHEN WITH CODEINE #3 TABLET PO PRN (07:34)
[2016-03-14] MEDS ORDERED: MEASLES,MUMPS&RUBELLA VACC/PF 0.5 ML VIAL SUBCUT PRN (07:34)
[2016-03-14] MEDS ORDERED: BENZOCAINE/MENTHOL AEROSOL SPRAY 56 ML TOP PRN (07:34)
[2016-03-14] MEDS ORDERED: DIBUCAINE 1% OINTMENT 28 GM TP PRN (07:34)
[2016-03-14] MEDS ORDERED: ZOLPIDEM TARTRATE 5 MG TABLET PO PRN (07:34)
[2016-03-14] MEDS ORDERED: OXYTOCIN/NORMAL SALINE 1,000 ML IV PRN (07:34)
[2016-03-14] MEDS ORDERED: DIPH/PERTUSS(ACELL)/TETANUS VAC/PF 0.5 ML SYR (>=10YO) IM PRN (07:34)
[2016-03-14 07:39] LABS: HEMATOCRIT 32.2 % (36.0-47.0); HEMOGLOBIN 10.5 g/dL (12.0-15.5); HGB HCT DIFFERENCE -0.7; MEAN CORPUSCULAR HEMOGLOBIN 26.7 pg (27.0-33.4); MEAN CORPUSCULAR HGB CONC 32.7 g/dL (32.0-36.0); MEAN CORPUSCULAR VOLUME 82 fl (80-97); RED BLOOD COUNT 3.94 10^6/uL (3.72-5.28); RED CELL DISTRIBUTION WIDTH 13.9 % (11.5-14.0); WHITE BLOOD COUNT 17.6 10^3/uL (4.0-10.5)
--- NOTE | 2016-03-14 08:01 | L&D Flow Sheet ---
LD Flowsheet Datetime Report Generated by CPN: 03/14/2016 08:00 Datetime: 03/14/2016 07:55 NBP Sys/Tori/Mean (mmHg): 137 (QS system process) : 71 (QS system process) : 97 (QS system process) Pulse: 100 (QS system process) Datetime: 03/14/2016 07:40 NBP Sys/Tori/Mean (mmHg): 134 (QS system process) : 69 (QS system process) : 94 (QS system process) Pulse: 107 (QS system process) Datetime: 03/14/2016 07:38 NBP Sys/Tori/Mean (mmHg): 139 (QS system process) : 67 (QS system process) : 94 (QS system process) Pulse: 106 (QS system process) Datetime: 03/14/2016 07:30 Communication Comments: Bedside report to [facility], care relinquished (Chelsea Keanu, RN) Datetime: 03/14/2016 07:10 IV/Blood Work: IV Started (Roslyn Errichiello, RN) Datetime: 03/14/2016 07:08 NBP Sys/Tori/Mean (mmHg): 164 (QS system process) : 88 (QS system process) : 116 (QS system process) Pulse: 102 (QS system process) Datetime: 03/14/2016 07:00 Level of Consciousness: Fully Conscious (Chelsea Keanu, RN) DTR's/Clonus: DTRs 2+; No Clonus (Chelsea Keanu, RN) Headache: Denies (Chelsea Keanu, RN) Breath Sounds, Left: Clear and Equal (Chelsea Keanu, RN) Breath Sounds, Right: Clear and Equal (Chelsea Keanu, RN) Nausea/Vomiting: Denies (Chelsea Keanu, RN) RUQ Epigastric Pain: Denies (Chelsea Keanu, RN) Datetime: 03/14/2016 06:53 NBP Sys/Tori/Mean (mmHg): 148 (QS system process) : 76 (QS system process) : 103 (QS system process) Pulse: 112 (QS system process) Datetime: 03/14/2016 06:45 Pain Assessment Comments: Pt sleeping when RN entered room (Chelsea Keanu, RN) Datetime: 03/14/2016 06:38 NBP Sys/Tori/Mean (mmHg): 151 (QS system process) : 72 (QS system process) : 105 (QS system process) Pulse: 104 (QS system process) Datetime: 03/14/2016 06:23 NBP Sys/Tori/Mean (mmHg): 143 (QS system process) : 74 (QS system process) : 99 (QS system process) Pulse: 104 (QS system process) Datetime: 03/14/2016 06:19 NBP Sys/Tori/Mean (mmHg): 157 (Annotations: Pt laying on left side ) (Chelsea Keanu, RN) : 72 (QS system process) : 104 (QS system process) Pulse: 99 (QS system process) Datetime: 03/14/2016 06:09 NBP Sys/Tori/Mean (mmHg): 168 (QS system process) : 78 (QS system process) : 112 (QS system process) Pulse: 97 (QS system process) Datetime: 03/14/2016 06:00 Level of Consciousness: Fully Conscious (Chelsea Keanu, RN) DTR's/Clonus: DTRs 2+; No Clonus (Chelsea Keanu, RN) Headache: Denies (Chelsea Keanu, RN) Breath Sounds, Left: Clear and Equal (Chelsea Keanu, RN) Breath Sounds, Right: Clear and Equal (Chelsea Keanu, RN) Nausea/Vomiting: Denies (Chelsea Keanu, RN) RUQ Epigastric Pain: Denies (Chelsea Keanu, RN) Datetime: 03/14/2016 05:55 Pain Scale: 4 (Chelsea Keanu, RN) Pain Presence: Intermittent (Chelsea Keanu, RN) Pain Type: Cramping (Chelsea Keanu, RN) Pain Location: Abdomen (Chelsea Keanu, RN) Pain Relief Measures: Pain Medication Given (Chelsea Colunga RN) Medication Comments: tylenol #3 x 2 tabs, motrin 800 mg PO (Chelsea Colunga RN) Datetime: 03/14/2016 05:53 NBP Sys/Tori/Mean (mmHg): 157 (QS system process) : 82 (QS system process) : 110 (QS system process) Pulse: 110 (QS system process) Datetime: 03/14/2016 05:46 NBP Sys/Tori/Mean (mmHg): 170 (QS system process) : 84 (QS system process) : 118 (QS system process) Pulse: 100 (QS system process) Medication Comments: hydralazine 10 mg IV per orders from Dr Rashid (Chelsea Colunga RN) Datetime: 03/14/2016 05:38 NBP Sys/Tori/Mean (mmHg): 170 (QS system process) : 101 (QS system process) : 127 (QS system process) Pulse: 97 (QS system process) Datetime: 03/14/2016 05:27 NBP Sys/Tori/Mean (mmHg): 164 (Annotations: report to Dr Rashid re: elevated BPs. No further orders at this time, will continue to monitor ) (Chelsea Colunga RN) : 97 (QS system process) : 124 (QS system process) Pulse: 95 (QS system process) Datetime: 03/14/2016 05:23 NBP Sys/Tori/Mean (mmHg): 163 (QS system process) : 91 (QS system process) : 121 (QS system process) Pulse: 99 (QS system process) Datetime: 03/14/2016 05:09 NBP Sys/Tori/Mean (mmHg): 154 (Annotations: retake ) (Chelsea Keanu, RN) : 89 (QS system process) : 118 (QS system process) Pulse: 97 (QS system process) Datetime: 03/14/2016 05:08 NBP Sys/Tori/Mean (mmHg): 167 (QS system process) : 92 (QS system process) : 123 (QS system process) Pulse: 96 (QS system process) Datetime: 03/14/2016 05:00 Level of Consciousness: Fully Conscious (Chelsea Keanu, RN) DTR's/Clonus: DTRs 2+; No Clonus (Chelsea Keanu, RN) Headache: Denies (Chelsea Keanu, RN) Breath Sounds, Left: Clear and Equal (Chelsea Keanu, RN) Breath Sounds, Right: Clear and Equal (Chelsea Keanu, RN) Nausea/Vomiting: Denies (Chelsea Keanu, RN) RUQ Epigastric Pain: Denies (Chelsea Keanu, RN) Datetime: 03/14/2016 04:53 NBP Sys/Tori/Mean (mmHg): 160 (QS system process) : 80 (QS system process) : 113 (QS system process) Pulse: 93 (QS system process) Datetime: 03/14/2016 04:38 NBP Sys/Tori/Mean (mmHg): 159 (QS system process) : 81 (QS system process) : 110 (QS system process) Pulse: 96 (QS system process) Datetime: 03/14/2016 04:24 Stage of : Recovery (Chayo Lattibchristian, RN) NBP Sys/Tori/Mean (mmHg): 151 (QS system process) : 77 (QS system process) : 105 (QS system process) Pulse: 109 (QS system process) Datetime: 03/14/2016 04:11 Patient Care Comments: Nursery RN at bedside (Chelsea [facility], RN) Datetime: 03/14/2016 04:10 Monitor Mode: External; Palpation (Chelsea Keanu, RN) Frequency (min): 1-2 (Chelsea Keanu, RN) Quality: Moderate to Strong (Chelsea Keanu, RN) Duration (sec): 60-70 (Chelsea Keanu, RN) Resting Tone (Palpate): Relaxed (Chelsea Keanu, RN) Monitor Mode: External US (Chelsea Keanu, RN) FHR Baseline Rate : 145 (Chelsea Keanu, RN) Variability: Moderate 6-25 bpm (Chelsea Keanu, RN) Accelerations: None (Chelsea Keanu, RN) Decelerations: None (Chelsea Keanu, RN) Pitocin (milliunit): Pitocin Remains (milliunits) @ 16 (Chelsea Keanu, RN) Datetime: 03/14/2016 04:09 Communication Comments: Nsy called for delivery (Chayo Lattibeaudeir, RN) Datetime: 03/14/2016 04:08 I/O Interventions: Mohan Discontinued (Chelsea Colunga RN) Datetime: 03/14/2016 04:03 Comments: RN and provider remain at bedside continuously assessing FHR and ctx (Chelsea Colunga RN) Dilatation (cm): 10.0 (Chelsea Colunga RN) Effacement (%): 100 (Chelsea Colunga RN) Station: 4 (Chelsea Colunga RN) Exam by: Tommie Colunga RN (Chelsea Colunga RN) Pushing: Urge to Push (Chelsea Colunga RN) Pushing Progress: with Pushing (Chelsea Colunga RN) Stage 2 Comments: Pt coached on breathing while pt repositioned and room prepared for delivery (Chelsea Colunga RN) Communication: RN at Bedside; Provider at Bedside (Chelsea Colunga RN) Communication Comments: Pt and family calling out, stating "the baby is coming" (Chelsea Colunga RN) Datetime: 03/14/2016 04:00 Monitor Mode: External; Palpation (Chelsea Keanu, RN) Frequency (min): 1-4 (Chelsea Keanu, RN) Quality: Moderate (Chelsea Keanu, RN) Duration (sec): 50-70 (Chelsea Keanu, RN) Resting Tone (Palpate): Relaxed (Chelsea Keanu, RN) Monitor Mode: External US (Chelsea Keanu, RN) FHR Baseline Rate : 145 (Chelsea Keanu, RN) Variability: Moderate 6-25 bpm (Chelsea Keanu, RN) Accelerations: None (Chelsea Keanu, RN) Decelerations: None (Chelsea Keanu, RN) Level of Consciousness: Fully Conscious (Chelsea Keanu, RN) DTR's/Clonus: DTRs 2+; No Clonus (Chelsea Keanu, RN) Headache: Denies (Chelsea Keanu, RN) Breath Sounds, Left: Clear and Equal (Chelsea Keanu, RN) Breath Sounds, Right: Clear and Equal (Chelsea Keanu, RN) Nausea/Vomiting: Denies (Chelsea Keanu, RN) RUQ Epigastric Pain: Denies (Chelsea Bricesel, RN) Pitocin (milliunit): Pitocin Remains (milliunits) @ 16 (Chelsea Colunga, RN) Patient Position/Activity: Left Extreme; Peanut Ball; Trendelenburg (Chelsea Keanu, RN) Datetime: 03/14/2016 03:56 Dilatation (cm): 9.0 (Chelsea Colunga RN) Effacement (%): 100 (Chelsea Colunga RN) Station: 0 (Chelsea Colunga RN) Exam by: Tommie Colunga RN/ Dr Rashid (Chelsea Colunga RN) Patient Care Comments: Pt calling out (Chelsea Colunga RN) Communication: RN at Bedside; Provider at Bedside (Chelsea Colunga RN) Datetime: 03/14/2016 03:48 Patient Position/Activity: Left Extreme; Trendelenburg (Chelsea Salomonl, RN) Datetime: 03/14/2016 03:47 Patient Position/Activity: Hands-Knees (Chelsea Colunga, RN) Datetime: 03/14/2016 03:45 Monitor Mode: External (Chelsea Keanu, RN) Frequency (min): 2-2.5 (Chelsea Keanu, RN) Quality: Moderate (Chelsea Keanu, RN) Duration (sec): 50-80 (Chelsea Keanu, RN) Resting Tone (Palpate): Relaxed (Chelsea Keanu, RN) Monitor Mode: External US (Chelsea Keanu, RN) FHR Baseline Rate : 145 (Chelsea Keanu, RN) Variability: Moderate 6-25 bpm (Chelsea Keanu, RN) Accelerations: 15X15 (Chelsea Keanu, RN) Decelerations: None (Chelsea Keanu, RN) Pitocin (milliunit): Pitocin Remains (milliunits) @ 16 (Chelsea Keanu, RN) Datetime: 03/14/2016 03:38 NBP Sys/Tori/Mean (mmHg): 166 (QS system process) : 87 (QS system process) : 119 (QS system process) Pulse: 106 (QS system process) LaborFlag: Antepartum (QS system process) Datetime: 03/14/2016 03:33 Dilatation (cm): 8.0 (Chelsea Colunga RN) Effacement (%): 70 (Chelsea Colunga RN) Station: -2 (Chelsea Colunga RN) Exam by: Tommie Colunga RN (Chelsea Colunga RN) Vaginal Exam Comments: SVE per pt request (Chelsea Colunga RN) Pitocin (milliunit): Pitocin Increased to (milliunits) @ 16 (Chelsea Colunga RN) Datetime: 03/14/2016 03:30 Monitor Mode: External (Chelsea Colunga, RN) Frequency (min): 1.5-3 (Chelsea Colunga, RN) Quality: Moderate (Chelsea Keanu, RN) Duration (sec): 60-80 (Chelsea Colunga, RN) Resting Tone (Palpate): Relaxed (Chelsea Colunga, RN) Monitor Mode: External US (Chelsea Colunga, RN) FHR Baseline Rate : 150 (Chelsea Salomonl, RN) Variability: Moderate 6-25 bpm (Chelsea Keanu, RN) Accelerations: None (Chelsea Salomonl, RN) Decelerations: Variable (Chelsea Keanu, RN) Pitocin (milliunit): Pitocin Remains (milliunits) @ (Annotations: 14) (Chelsea Colunga, RN) Datetime: 03/14/2016 03:24 NBP Sys/Tori/Mean (mmHg): 169 (QS system process) : 94 (QS system process) : 123 (QS system process) Pulse: 110 (QS system process) LaborFlag: Antepartum (QS system process) Datetime: 03/14/2016 03:15 Monitor Mode: External (Chelsea Keanu, RN) Frequency (min): 2-3 (Chelsea Keanu, RN) Quality: Moderate (Chelsea Keanu, RN) Duration (sec): 50-60 (Chelsea Keanu, RN) Resting Tone (Palpate): Relaxed (Chelsea Keanu, RN) Monitor Mode: External US (Chelsea Keanu, RN) FHR Baseline Rate : 145 (Chelsea Keanu, RN) Variability: Moderate 6-25 bpm (Chelsea Keanu, RN) Accelerations: None (Chelsea Keanu, RN) Decelerations: None (Chelsea Keanu, RN) Pitocin (milliunit): Pitocin Remains (milliunits) @ 14 (Chelsea Keanu, RN) Datetime: 03/14/2016 03:09 NBP Sys/Tori/Mean (mmHg): 153 (QS system process) : 92 (QS system process) : 117 (QS system process) Pulse: 110 (QS system process) LaborFlag: Antepartum (QS system process) Datetime: 03/14/2016 03:00 Frequency (min): 2-3 (Chelsea Keanu, RN) Quality: Moderate (Chelsea Keanu, RN) Duration (sec): 60-70 (Chelsea Keanu, RN) Resting Tone (Palpate): Relaxed (Chelsea Keanu, RN) Monitor Mode: External US (Chelsea Keanu, RN) FHR Baseline Rate : 150 (Chelsea Keanu, RN) Variability: Moderate 6-25 bpm (Chelsea Keanu, RN) Accelerations: None (Chelsea Keanu, RN) Decelerations: Late (Chelsea Keanu, RN) Level of Consciousness: Fully Conscious (Chelsea Keanu, RN) DTR's/Clonus: DTRs 2+; No Clonus (Chelsea Keanu, RN) Headache: Denies (Chelsea Keanu, RN) Breath Sounds, Left: Clear and Equal (Chelsea Keanu, RN) Breath Sounds, Right: Clear and Equal (Chelsea Keanu, RN) Nausea/Vomiting: Denies (Chelsea Keanu, RN) RUQ Epigastric Pain: Denies (Chelsea Keanu, RN) Pitocin (milliunit): Pitocin Remains (milliunits) @ 14 (Chelsea Keanu, RN) Datetime: 03/14/2016 02:54 NBP Sys/Tori/Mean (mmHg): 152 (QS system process) : 87 (QS system process) : 114 (QS system process) Pulse: 110 (QS system process) LaborFlag: Antepartum (QS system process) Datetime: 03/14/2016 02:45 Monitor Mode: External (Chelsea Keanu, RN) Frequency (min): 1.5-3 (Chelsea Keanu, RN) Quality: Moderate (Chelsea Keanu, RN) Duration (sec): 60-70 (Chelsea Keanu, RN) Resting Tone (Palpate): Relaxed (Chelsea Keanu, RN) Monitor Mode: External US (Chelsea Keanu, RN) FHR Baseline Rate : 155 (Chelsea Keanu, RN) Variability: Minimal - Undetectable to <=5 bpm (Chelsea Keanu, RN) Accelerations: None (Chelsea Keanu, RN) Decelerations: Late; Variable (Chelsea Keanu, RN) Pitocin (milliunit): Pitocin Remains (milliunits) @ 14 (Chelsea Keanu, RN) Datetime: 03/14/2016 02:38 NBP Sys/Tori/Mean (mmHg): 159 (QS system process) : 89 (QS system process) : 118 (QS system process) Pulse: 107 (QS system process) Respirations: 17 (Chelsea Keanu, RN) Temperature (F): 98.8 (Chelsea Keanu, RN) Temperature (C): 37.1 (QS system process) LaborFlag: Antepartum (QS system process) Datetime: 03/14/2016 02:33 Pitocin (milliunit): Pitocin Increased to (milliunits) @ 14 (Chelsea Keanu, RN) Datetime: 03/14/2016 02:30 Monitor Mode: External (Chelsea Keanu, RN) Frequency (min): 2-3 (Chelsea Keanu, RN) Quality: Moderate (Chelsea Keanu, RN) Duration (sec): 50-60 (Chelsea Keanu, RN) Resting Tone (Palpate): Relaxed (Chelsea Keanu, RN) Monitor Mode: External US (Chelsea Keanu, RN) FHR Baseline Rate : 155 (Chelsea Keanu, RN) Variability: Moderate 6-25 bpm (Chelsea Keanu, RN) Accelerations: None (Chelsea Keanu, RN) Decelerations: None (Chelsea Keanu, RN) Pitocin (milliunit): Pitocin Remains (milliunits) @ 12 (Hcelsea Keanu, RN) Datetime: 03/14/2016 02:24 NBP Sys/Tori/Mean (mmHg): 146 (QS system process) : 83 (QS system process) : 109 (QS system process) Pulse: 109 (QS system process) LaborFlag: Antepartum (QS system process) Datetime: 03/14/2016 02:22 Antibiotics: Penicillin IV (Units) @ 2,500,000 (Chelsea Keanu, RN) Datetime: 03/14/2016 02:15 Monitor Mode: External (Chelsea Keanu, RN) Frequency (min): 1.5-3 (Chelsea Keanu, RN) Quality: Moderate (Chelsea Keanu, RN) Duration (sec): 60-90 (Chelsea Keanu, RN) Resting Tone (Palpate): Relaxed (Chelsea Keanu, RN) Monitor Mode: External US (Chelsea Keanu, RN) FHR Baseline Rate : 155 (Chelsea Keanu, RN) Variability: Moderate 6-25 bpm (Chelsea Keanu, RN) Accelerations: None (Chelsea Keanu, RN) Decelerations: None (Chelsea Keanu, RN) Pitocin (milliunit): Pitocin Remains (milliunits) @ 12 (Chelsea Keanu, RN) Datetime: 03/14/2016 02:13 Dilatation (cm): 8.0 (Chelsea Keanu, RN) Effacement (%): 70 (Chelsea Keanu, RN) Station: -1 (Chelsea Keanu, RN) Exam by: Tommie Colunga RN (Chelsea Keanu, RN) Pitocin (milliunit): Pitocin Increased to (milliunits) @ 12 (Chelsea Keanu, RN) Pushing: Urge to Push (Chelsea Keanu, RN) Datetime: 03/14/2016 02:08 NBP Sys/Tori/Mean (mmHg): 163 (QS system process) : 88 (QS system process) : 119 (QS system process) Pulse: 108 (QS system process) LaborFlag: Antepartum (QS system process) Datetime: 03/14/2016 02:00 Monitor Mode: External (Chelsea Keanu, RN) Frequency (min): 2-4 (Chelsea Keanu, RN) Quality: Moderate (Chelsea Keanu, RN) Duration (sec): 50-70 (Chelsea Keanu, RN) Resting Tone (Palpate): Relaxed (Chelsea Keanu, RN) Monitor Mode: External US (Chelsea Keanu, RN) FHR Baseline Rate : 140 (Chelsea Keanu, RN) Variability: Moderate 6-25 bpm (Chelsea Keanu, RN) Accelerations: 15X15 (Chelsea Keanu, RN) Decelerations: None (Chelsea Keanu, RN) Level of Consciousness: Fully Conscious (Chelsea Keanu, RN) DTR's/Clonus: DTRs 2+; No Clonus (Chelsea Keanu, RN) Headache: Denies (Chelsea Keanu, RN) Breath Sounds, Left: Clear and Equal (Chelsea Keanu, RN) Breath Sounds, Right: Clear and Equal (Chelsea Keanu, RN) Nausea/Vomiting: Denies (Chelsea Keanu, RN) RUQ Epigastric Pain: Denies (Chelsea Keanu, RN) Pitocin (milliunit): Pitocin Remains (milliunits) @ 10 (Chelsea Keanu, RN) Datetime: 03/14/2016 01:54 NBP Sys/Tori/Mean (mmHg): 165 (QS system process) : 95 (QS system process) : 121 (QS system process) Pulse: 101 (QS system process) LaborFlag: Antepartum (QS system process) Datetime: 03/14/2016 01:45 Monitor Mode: External (Chelsea Kenau, RN) Frequency (min): 1-3 (Chelsea Keanu, RN) Quality: Moderate (Chelsea Keanu, RN) Duration (sec): 50-60 (Chelsea Keanu, RN) Resting Tone (Palpate): Relaxed (Chelsea Keanu, RN) Monitor Mode: External US (Chelsea Keanu, RN) FHR Baseline Rate : 135 (Chelsea Keanu, RN) Variability: Moderate 6-25 bpm (Chelsea Keanu, RN) Accelerations: 15X15 (Chelsea Keanu, RN) Decelerations: None (Chelsea Keanu, RN) Pitocin (milliunit): Pitocin Remains (milliunits) @ 10 (Chelsea Keanu, RN) Datetime: 03/14/2016 01:38 NBP Sys/Tori/Mean (mmHg): 161 (QS system process) : 87 (QS system process) : 115 (QS system process) Pulse: 103 (QS system process) LaborFlag: Antepartum (QS system process) Datetime: 03/14/2016 01:30 Monitor Mode: External (Chelsea Salomonl, RN) Frequency (min): 2-3 (Chelsea Colunga, RN) Quality: Moderate (Chelsea Keanu, RN) Duration (sec): 50-80 (Chelsea Keanu, RN) Resting Tone (Palpate): Relaxed (Chelsea Colunga, RN) Monitor Mode: External US (Chelsea Colunga, RN) FHR Baseline Rate : 135 (Chelsea Keanu, RN) Variability: Moderate 6-25 bpm (Chelsea Keanu, RN) Accelerations: 15X15 (Chelsea Keanu, RN) Decelerations: None (Chelsea Keanu, RN) Pitocin (milliunit): Pitocin Remains (milliunits) @ 10 (Chelsea Keanu, RN) Datetime: 03/14/2016 01:23 NBP Sys/Tori/Mean (mmHg): 148 (QS system process) : 87 (QS system process) : 111 (QS system process) Pulse: 85 (QS system process) LaborFlag: Antepartum (QS system process) Datetime: 03/14/2016 01:15 Monitor Mode: External; Palpation (Chelsea Keanu, RN) Frequency (min): 2-5 (Chelsea Keanu, RN) Quality: Moderate (Chelsea Keanu, RN) Duration (sec): 50-70 (Chelsea Keanu, RN) Resting Tone (Palpate): Relaxed (Chelsea Kenau, RN) Monitor Mode: External US (Chelsea Keanu, RN) FHR Baseline Rate : 130 (Chelsea Keanu, RN) Variability: Moderate 6-25 bpm (Chelsea Keanu, RN) Accelerations: None (Chelsea Keanu, RN) Decelerations: None (Chelsea Keanu, RN) Pitocin (milliunit): Pitocin Remains (milliunits) @ 10 (Chelsea Keanu, RN) Datetime: 03/14/2016 01:08 Monitor Interventions for UA: [place] Adjusted (Chelsea Keanu, RN) Datetime: 03/14/2016 01:07 Patient Position/Activity: Tailors (Chelsea Keanu, RN) Datetime: 03/14/2016 01:05 Monitor Interventions for FHR: Ultrasound Adjusted (Chelsea Keanu, RN) Communication: RN at Bedside (Chelsea Keanu, RN) Datetime: 03/14/2016 01:00 Monitor Mode: External; Palpation (Chelsea Keanu, RN) Frequency (min): 2-5 (Chelsea Keanu, RN) Quality: Moderate (Chelsea Keanu, RN) Duration (sec): 50-70 (Chelsea Keanu, RN) Resting Tone (Palpate): Relaxed (Chelsea Keanu, RN) Monitor Mode: External US (Chelsea Keanu, RN) FHR Baseline Rate : 135 (Chelsea Keanu, RN) Variability: Moderate 6-25 bpm (Chelsea Keanu, RN) Accelerations: None (Chelsea Keanu, RN) Decelerations: None (Chelsea Keanu, RN) Level of Consciousness: Fully Conscious (Chelsea Keanu, RN) DTR's/Clonus: DTRs 2+ (Chelsea Keanu, RN) Headache: Generalized (Chelsea Keanu, RN) Breath Sounds, Left: Clear and Equal (Chelsea Keanu, RN) Breath Sounds, Right: Clear and Equal (Chelsea Keanu, RN) Nausea/Vomiting: Denies (Chelsea Keanu, RN) RUQ Epigastric Pain: Denies (Chelsea Colunga RN) Pitocin (milliunit): Pitocin Remains (milliunits) @ 10 (Chelsea Colunga RN) Patient Care Comments: Pt reporting headache that feels like "a tired headache" (Chelsea Colunga RN) Datetime: 03/14/2016 00:53 NBP Sys/Tori/Mean (mmHg): 160 (QS system process) : 76 (QS system process) : 108 (QS system process) Pulse: 94 (QS system process) LaborFlag: Antepartum (QS system process) Datetime: 03/14/2016 00:50 Pain Coping: Requesting Pain Medication or Epidural (Chelsea Colunga RN) Medication Comments: fentanyl 50 mcg IV per orders from Dr Rashid (Chelsea Colunga RN) Datetime: 03/14/2016 00:49 Monitor Interventions for FHR: Ultrasound Adjusted (Chelsea Colunga RN) Communication: RN at Bedside (Chelsea Colunga RN) Datetime: 03/14/2016 00:45 Monitor Mode: External (Chelsea Colunga RN) Frequency (min): 3-5 (Chelsea Colunga RN) Quality: Moderate (Chelsea Colunga RN) Duration (sec): 50-70 (Chelsea Colunga RN) Resting Tone (Palpate): Relaxed (Chelsea Colunga RN) Monitor Mode: External US (Chelsea Colunga RN) FHR Baseline Rate : 135 (Chelsea Colunga RN) Variability: Moderate 6-25 bpm (Chelsea Colunga RN) Accelerations: 15X15 (Chelsea Colunga RN) Decelerations: None (Chelsea Colunga RN) Pitocin (milliunit): Pitocin Remains (milliunits) @ 10 (Chelsea Colunga RN) IV/Blood Work: IV Infusing per Order; New IV Bag Hung (Chelsea Colunga RN) Patient Care Comments: LR infusing at 100 mL/ hr (Chelsea Keanu, RN) Datetime: 03/14/2016 00:38 NBP Sys/Tori/Mean (mmHg): 158 (QS system process) : 78 (QS system process) : 108 (QS system process) Pulse: 92 (QS system process) LaborFlag: Antepartum (QS system process) Datetime: 03/14/2016 00:35 IV/Blood Work: IV Bolus Given ml @ 250 (Chelsea Colunga, RN) Patient Care Comments: D5W bolus 250 mL (Chelsea Keanu, RN) Datetime: 03/14/2016 00:30 Monitor Mode: External; Palpation (Chelsea Keanu, RN) Frequency (min): 3-6 (Chelsea Keanu, RN) Quality: Moderate (Chelsea Keanu, RN) Duration (sec): 50-70 (Chelsea Keanu, RN) Resting Tone (Palpate): Relaxed (Chelsea Keanu, RN) Monitor Mode: External US (Chelsea Keanu, RN) FHR Baseline Rate : 135 (Chelsea Keanu, RN) Variability: Moderate 6-25 bpm (Chelsea Keanu, RN) Accelerations: None (Chelsea Keanu, RN) Decelerations: None (Chelsea Keanu, RN) Pitocin (milliunit): Pitocin Started (milliunits) @ 10 (Chelsea Keanu, RN) Datetime: 03/14/2016 00:23 NBP Sys/Tori/Mean (mmHg): 139 (QS system process) : 73 (QS system process) : 99 (QS system process) Pulse: 85 (QS system process) LaborFlag: Antepartum (QS system process) Datetime: 03/14/2016 00:15 Monitor Mode: External; Palpation (Chelsea Keanu, RN) Frequency (min): 2-5 (Chelsea Keanu, RN) Quality: Moderate (Chelsea Keanu, RN) Duration (sec): 50-70 (Chelsea Keanu, RN) Resting Tone (Palpate): Relaxed (Chelsea Keanu, RN) Monitor Mode: External US (Chelsea Keanu, RN) FHR Baseline Rate : 135 (Chelsea Keanu, RN) Variability: Moderate 6-25 bpm (Chelsea Keanu, RN) Accelerations: None (Chelsea Keanu, RN) Decelerations: None (Chelsea Keanu, RN) Datetime: 03/14/2016 00:08 NBP Sys/Tori/Mean (mmHg): 137 (QS system process) : 66 (QS system process) : 94 (QS system process) Pulse: 96 (QS system process) LaborFlag: Antepartum (QS system process) Datetime: 03/14/2016 00:00 Monitor Mode: External; Palpation (Chelsea Keanu, RN) Frequency (min): 2-5 (Chelsea Keanu, RN) Quality: Moderate (Chelsea Keanu, RN) Duration (sec): 50-70 (Chelsea Keanu, RN) Resting Tone (Palpate): Relaxed (Chelsea Keanu, RN) Monitor Mode: External US (Chelsea Keanu, RN) FHR Baseline Rate : 135 (Chelsea Keanu, RN) Variability: Moderate 6-25 bpm (Chelsea Keanu, RN) Accelerations: None (Chelsea Keanu, RN) Decelerations: None (Chelsea Keanu, RN) Level of Consciousness: Fully Conscious (Chelsea Keanu, RN) DTR's/Clonus: DTRs 2+; No Clonus (Chelsea Keanu, RN) Headache: Denies (Chelsea Keanu, RN) Breath Sounds, Left: Clear and Equal (Chelsea Keanu, RN) Breath Sounds, Right: Clear and Equal (Chelsea Keanu, RN) Nausea/Vomiting: Denies (Chelsea Keanu, RN) RUQ Epigastric Pain: Denies (Chelsea Keanu, RN) Datetime: 03/13/2016 23:53 NBP Sys/Tori/Mean (mmHg): 129 (QS system process) : 58 (QS system process) : 86 (QS system process) Pulse: 93 (QS system process) LaborFlag: Antepartum (QS system process) Datetime: 03/13/2016 23:45 Monitor Mode: External; Palpation (Chelsea Keanu, RN) Frequency (min): 2-5 (Chelsea Keanu, RN) Quality: Moderate (Chelsea Keanu, RN) Duration (sec): 50-60 (Chelsea Keanu, RN) Resting Tone (Palpate): Relaxed (Chelsea Keanu, RN) Monitor Mode: External US (Chelsea Keanu, RN) FHR Baseline Rate : 135 (Chelsea Keanu, RN) Variability: Moderate 6-25 bpm (Chelsea Keanu, RN) Accelerations: 15X15 (Chelsea Keanu, RN) Decelerations: None (Chelsea Keanu, RN) Datetime: 03/13/2016 23:40 NBP Sys/Tori/Mean (mmHg): 143 (QS system process) : 70 (QS system process) : 99 (QS system process) Pulse: 92 (QS system process) LaborFlag: Antepartum (QS system process) Datetime: 03/13/2016 23:30 Monitor Mode: External; Palpation (Chelsea Keanu, RN) Frequency (min): 2-4 (Chelsea Keanu, RN) Quality: Moderate (Chelsea Keanu, RN) Duration (sec): 50-70 (Chelsea Keanu, RN) Resting Tone (Palpate): Relaxed (Chelsea Keanu, RN) Monitor Mode: External US (Chelsea Keanu, RN) FHR Baseline Rate : 130 (Chelsea Keanu, RN) Variability: Moderate 6-25 bpm (Chelsea Keanu, RN) Accelerations: None (Chelsea Keanu, RN) Decelerations: None (Chelsea Keanu, RN) Datetime: 03/13/2016 23:24 Pitocin (milliunit): Pitocin Discontinued (Chelsea Keanu, RN) Medication Comments: bicitra 15 mL PO (Chelsea Keanu, RN) Datetime: 03/13/2016 23:17 Communication: Provider Orders Received; Call/Page Placed to Provider (Chelsea Colunga RN) Communication Comments: Orders for bicitra 15 mL for nausea, discontinue pitocin and start at 10 milliunits/min after 30 minute break. 250 mL bolus of D5W when restarting pitocin (Chelsea Keanu, RN) Datetime: 03/13/2016 23:15 Monitor Mode: External (Chelsea Keanu, RN) Frequency (min): 2-4 (Chelsea Keanu, RN) Quality: Moderate (Chelsea Keanu, RN) Duration (sec): 50-70 (Chelsea Keanu, RN) Resting Tone (Palpate): Relaxed (Chelsea Bricesel, RN) Monitor Mode: External US (Chelsea Bricesel, RN) FHR Baseline Rate : 130 (Chelsea Keanu, RN) Variability: Moderate 6-25 bpm (Chelsea Keanu, RN) Accelerations: 10X10 (Chelsea Keanu, RN) Decelerations: None (Chelsea Keanu, RN) Pitocin (milliunit): Pitocin Remains (milliunits) @ 20 (Chelsea Colunga RN) Datetime: 03/13/2016 23:14 Dilatation (cm): 7.0 (Chelsea Colunga RN) Effacement (%): 50 (Chelsea Colunga RN) Station: -2 (Chelsea Colunga RN) Exam by: Tommie Colunga RN (Chelsea Colunga RN) Vaginal Exam Comments: Pt reporting urge to push and nausea (Chelsea Colunga RN) Datetime: 03/13/2016 23:08 NBP Sys/Tori/Mean (mmHg): 143 (QS system process) : 69 (QS system process) : 99 (QS system process) Pulse: 94 (QS system process) LaborFlag: Antepartum (QS system process) Datetime: 03/13/2016 23:00 Monitor Mode: External; Palpation (Chelsea Keanu, RN) Frequency (min): 2-5 (Chelsea Keanu, RN) Quality: Moderate (Chelsea Keanu, RN) Duration (sec): 50-80 (Chelsea Keanu, RN) Resting Tone (Palpate): Relaxed (Chelsea Keanu, RN) Monitor Mode: External US (Chelsea Keanu, RN) FHR Baseline Rate : 135 (Chelsea Keanu, RN) Variability: Moderate 6-25 bpm (Chelsea Keanu, RN) Accelerations: None (Chelsea Keanu, RN) Decelerations: None (Chelsea Keanu, RN) Level of Consciousness: Fully Conscious (Chelsea Keanu, RN) DTR's/Clonus: DTRs 2+; No Clonus (Chelsea Keanu, RN) Headache: Denies (Chelsea Keanu, RN) Breath Sounds, Left: Clear and Equal (Chelsea Keanu, RN) Breath Sounds, Right: Clear and Equal (Chelsea Keanu, RN) Nausea/Vomiting: Denies (Chelsea Keanu, RN) RUQ Epigastric Pain: Denies (Chelsea Keanu, RN) Pitocin (milliunit): Pitocin Remains (milliunits) @ 20 (Chelsea Keanu, RN) Datetime: 03/13/2016 22:54 NBP Sys/Tori/Mean (mmHg): 146 (QS system process) : 70 (QS system process) : 100 (QS system process) Pulse: 90 (QS system process) LaborFlag: Antepartum (QS system process) Datetime: 03/13/2016 22:45 Monitor Mode: External; Palpation (Chelsea Keanu, RN) Frequency (min): 2-4 (Chelsea Keanu, RN) Quality: Moderate (Chelsea Keanu, RN) Duration (sec): 50-80 (Chelsea Keanu, RN) Resting Tone (Palpate): Relaxed (Chelsea Keanu, RN) Monitor Mode: External US (Chelsea Keanu, RN) FHR Baseline Rate : 130 (Chelsea Keanu, RN) Variability: Moderate 6-25 bpm (Chelsea Keanu, RN) Accelerations: None (Chelsea Keanu, RN) Decelerations: None (Chelsea Keanu, RN) Pitocin (milliunit): Pitocin Remains (milliunits) @ 20 (Chelsea Keanu, RN) Datetime: 03/13/2016 22:38 NBP Sys/Tori/Mean (mmHg): 144 (QS system process) : 72 (QS system process) : 102 (QS system process) Pulse: 91 (QS system process) LaborFlag: Antepartum (QS system process) Datetime: 03/13/2016 22:35 Monitor Interventions for UA: [place] Adjusted (Chelsea Colunga RN) Monitor Interventions for FHR: Ultrasound Adjusted (Chelsea Colunga RN) Comments: Pt states she rolls forward with ctx (Chelsea Colunga RN) Communication: RN at Bedside (Chelsea Colunga RN) Datetime: 03/13/2016 22:30 Monitor Mode: External; Palpation (Chelsea Colunga RN) Frequency (min): 2-5 (Chelsea Keanu, RN) Quality: Moderate (Chelsea Keanu, RN) Duration (sec): 50-70 (Chelsea Keanu, RN) Resting Tone (Palpate): Relaxed (Chelsea Keanu, RN) Monitor Mode: External US (Chelsea Keanu, RN) FHR Baseline Rate : 135 (Chelsea Keanu, RN) Variability: Moderate 6-25 bpm (Chelsea Keanu, RN) Accelerations: Prolonged (Chelsea Keanu, RN) Decelerations: None (Chelsea Keanu, RN) Pitocin (milliunit): Pitocin Remains (milliunits) @ 20 (Chelsea Keanu, RN) Datetime: 03/13/2016 22:24 NBP Sys/Tori/Mean (mmHg): 148 (QS system process) : 76 (QS system process) : 106 (QS system process) Pulse: 85 (QS system process) LaborFlag: Antepartum (QS system process) Datetime: 03/13/2016 22:15 Monitor Mode: External; Palpation (Chelsea Keanu, RN) Frequency (min): 2-5 (Chelsea Keanu, RN) Quality: Moderate (Chelsea Keanu, RN) Duration (sec): 50-70 (Chelsea Keanu, RN) Resting Tone (Palpate): Relaxed (Chelsea Keanu, RN) Monitor Mode: External US (Chelsea Keanu, RN) Monitor Interventions for FHR: Ultrasound Adjusted (Chelsea Keanu, RN) FHR Baseline Rate : 135 (Chelsea Keanu, RN) Variability: Moderate 6-25 bpm (Chelsea Keanu, RN) Accelerations: None (Chelsea Keanu, RN) Decelerations: None (Chelsea Keanu, RN) Pitocin (milliunit): Pitocin Remains (milliunits) @ 20 (Chelsea Keanu, RN) Datetime: 03/13/2016 22:14 Comments: maternal HR tracing (Chelsea Keanu, RN) Datetime: 03/13/2016 22:08 NBP Sys/Tori/Mean (mmHg): 148 (QS system process) : 68 (QS system process) : 98 (QS system process) Pulse: 88 (QS system process) LaborFlag: Antepartum (QS system process) Datetime: 03/13/2016 22:00 Monitor Mode: External (Chelsea Keanu, RN) Frequency (min): 2-3 (Chelsea Keanu, RN) Quality: Moderate (Chelsea Keanu, RN) Duration (sec): 50-70 (Chelsea Keanu, RN) Resting Tone (Palpate): Relaxed (Chelsea Keanu, RN) Monitor Mode: External US (Chelsea Keanu, RN) FHR Baseline Rate : 135 (Chelsea Keanu, RN) Variability: Moderate 6-25 bpm (Chelsea Keanu, RN) Accelerations: None (Chelsea Keanu, RN) Decelerations: None (Chelsea Keanu, RN) Level of Consciousness: Fully Conscious (Chelsea Keanu, RN) DTR's/Clonus: DTRs 2+; No Clonus (Chelsea Keanu, RN) Headache: Denies (Chelsea Colunga, RN) Breath Sounds, Left: Clear and Equal (Chelsea Colunga RN) Breath Sounds, Right: Clear and Equal (Chelsea Colunga, RN) Nausea/Vomiting: Denies (Chelsea Colunga RN) RUQ Epigastric Pain: Denies (Chelsea Colunga RN) Pitocin (milliunit): Pitocin Remains (milliunits) @ 20 (Chelsea Colunga RN)
[2016-03-14 08:02] LABS: ALANINE AMINOTRANSFERASE 28 U/L (9-52); ALKALINE PHOSPHATASE 139 U/L (38-126); ANION GAP 10 (5-19); ASPARTATE AMINO TRANSFERASE 23 U/L (14-36); BILIRUBIN,TOTAL 0.4 mg/dL (0.2-1.3); BLOOD UREA NITROGEN 5 mg/dL (7-20); CARBON DIOXIDE 21 mmol/L (22-30); CHLORIDE 106 mmol/L (98-107); GLUCOSE 146 mg/dL (75-110); LDH 517 U/L (313-618); POTASSIUM 4.2 mmol/L (3.6-5.0); SODIUM 136.6 mmol/L (137-145); TOTAL PROTEIN 5.7 g/dL (6.3-8.2); URIC ACID 3.9 mg/dL (2.5-6.2)
[2016-03-14 08:13] LABS: BASOPHILS % (MANUAL) 0 % (0-2); EOSINOPHILS % (MANUAL) 0 % (0-6); LYMPHOCYTES % (MANUAL) 4 % (13-45); RBC MORPHOLOGY COMMENT NORMO-CYTIC/CHROMIC; TOTAL CELLS COUNTED 100
--- NOTE | 2016-03-14 10:01 | L&D Flow Sheet ---
LD Flowsheet Datetime Report Generated by CPN: 03/14/2016 10:00 Datetime: 03/14/2016 09:31 NBP Sys/Tori/Mean (mmHg): 137 (QS system process) : 69 (QS system process) : 95 (QS system process) Pulse: 101 (QS system process) Respirations: 16 ([place] Camp, RNC) Datetime: 03/14/2016 09:21 NBP Sys/Tori/Mean (mmHg): 132 (QS system process) : 62 (QS system process) : 89 (QS system process) Pulse: 105 (QS system process) Datetime: 03/14/2016 09:01 NBP Sys/Tori/Mean (mmHg): 161 (QS system process) : 79 (QS system process) : 113 (QS system process) Pulse: 104 (QS system process) Respirations: 16 ([place] Camp, RNC) Pain Scale: 0 ([place] Camp, RNC) Pain Presence: None/Denies ([place] Camp, RNC) Pain Type: N/A (T[place]in Camp, RNC) Pain Assessment Comments: denies need for pain management ([place] Camp, RNC) Datetime: 03/14/2016 09:00 Level of Consciousness: Fully Conscious ([place]in Camp, RNC) DTR's/Clonus: DTRs 2+; No Clonus ([place] Camp, RNC) Headache: Denies ([place], RNC) Breath Sounds, Left: Clear and Equal ([place], RNC) Breath Sounds, Right: Clear and Equal ([place] Camp, RNC) Nausea/Vomiting: Denies ([place] Camp, RNC) RUQ Epigastric Pain: Denies ([place] Camp, RNC) Datetime: 03/14/2016 08:31 NBP Sys/Tori/Mean (mmHg): 134 (QS system process) : 70 (QS system process) : 95 (QS system process) Pulse: 100 (QS system process) Respirations: 16 ([place] Camp, RNC) Datetime: 03/14/2016 08:01 NBP Sys/Tori/Mean (mmHg): 136 (QS system process) : 67 (QS system process) : 95 (QS system process) Pulse: 105 (QS system process) Respirations: 16 (Toyin Camp, RNC) Temperature (F): 98.5 ([place] Camp, RNC) Temperature (C): 36.9 (QS system process) Temperature Route: Oral ([place] Camp, RNC) Temperature Route: Oral ([place] Camp, RNC) Pain Scale: 0 ([place] Camp, RNC) Pain Presence: None/Denies ([place] Camp, RNC) Pain Type: N/A ([place], RNC) Pain Relief Measures: Comfort Measures (ADELA Valdovinos) Pain Assessment Comments: ice pack to perineum (ADELA Valdovinos) Datetime: 03/14/2016 08:00 Level of Consciousness: Fully Conscious (ADELA Valdovinos) DTR's/Clonus: DTRs 2+; No Clonus (ADELA Valdovinos) Headache: Denies (ADELA Valdovinos) Breath Sounds, Left: Clear and Equal (ADELA Valdovinos) Breath Sounds, Right: Clear and Equal (ADELA Valdovinos) Nausea/Vomiting: Denies (ADELA Valdovinos) RUQ Epigastric Pain: Denies (ADELA Valdovinos) Magnesium/Antihypertensives: Magnesium Sulfate IV (Gm/hr) @ (Annotations: 1 gm per hour ) (ADELA Valdovinos)
[2016-03-14] MEDS: ACETAMINOPHEN WITH CODEINE #3 TABLET PO PRN ×2 (11:07→18:25)
--- NOTE | 2016-03-14 12:01 | L&D Flow Sheet ---
LD Flowsheet Datetime Report Generated by CPN: 03/14/2016 12:00 Datetime: 03/14/2016 11:45 Pain Scale: 2 (Toyin Camp, RNC) Pain Presence: Intermittent (T[place]in Camp, RNC) Pain Type: Cramping (T[place]in Camp, RNC) Pain Location: Abdomen (T[place]in Camp, RNC) Pain Relief Measures: Pain Medication Given; Comfort Measures (T[place]in Camp, RNC) Pain Assessment Comments: states reduction in cramping and pain level since po pain meds given (T[place]in Camp, RNC) Datetime: 03/14/2016 11:31 NBP Sys/Tori/Mean (mmHg): 134 (QS system process) : 70 (QS system process) : 95 (QS system process) Pulse: 98 (QS system process) Respirations: 16 ([place] Camp, RNC) Datetime: 03/14/2016 11:01 NBP Sys/Tori/Mean (mmHg): 140 (QS system process) : 71 (QS system process) : 99 (QS system process) Pulse: 95 (QS system process) Respirations: 16 ([place] Camp, RNC) Temperature (F): 97.7 ([place] Camp, RNC) Temperature (C): 36.5 (QS system process) Temperature Route: Oral (T[place] Camp, RNC) Pain Scale: 3 (T[place] Camp, RNC) Pain Presence: Intermittent (T[place]in Camp, RNC) Pain Type: Cramping (Toyin Camp, RNC) Pain Location: Abdomen (Toyin Camp, RNC) Pain Goal: 2 (Toyin Camp, RNC) Datetime: 03/14/2016 11:00 Level of Consciousness: Fully Conscious (Toyin Camp, RNC) DTR's/Clonus: DTRs 2+; No Clonus (Toyin Camp, RNC) Headache: Denies ([place] Camp, RNC) Breath Sounds, Left: Clear and Equal (T[place] Camp, RNC) Breath Sounds, Right: Clear and Equal (T[place]in Camp, RNC) Nausea/Vomiting: Denies (T[place]in Camp, RNC) RUQ Epigastric Pain: Denies (Toyin Camp, RNC) Datetime: 03/14/2016 10:31 NBP Sys/Tori/Mean (mmHg): 144 (QS system process) : 74 (QS system process) : 101 (QS system process) Pulse: 103 (QS system process) Datetime: 03/14/2016 10:01 NBP Sys/Tori/Mean (mmHg): 137 (QS system process) : 63 (QS system process) : 90 (QS system process) Pulse: 111 (QS system process) Respirations: 16 (T[place] Camp, RNC) Pain Scale: 2 (T[place] Camp, RNC) Pain Presence: Intermittent (Toyin Camp, RNC) Pain Type: Cramping (Toyin Camp, RNC) Pain Location: Abdomen (Toyin Camp, RNC) Datetime: 03/14/2016 10:00 Level of Consciousness: Fully Conscious (Toyin Camp, RNC) DTR's/Clonus: DTRs 2+; No Clonus (Toyin Camp, RNC) Headache: Denies (Toyin Camp, RNC) Breath Sounds, Left: Clear and Equal (Toyin Camp, RNC) Breath Sounds, Right: Clear and Equal (Toyin Camp, RNC) Nausea/Vomiting: Denies (T[place]in Camp, RNC) RUQ Epigastric Pain: Denies (Toyin Camp, RNC)
[2016-03-14] MEDS ORDERED: NIFEDIPINE 30 MG TAB.ER.24 PO ONE (13:25)
[2016-03-14] MEDS: IBUPROFEN 800 MG TABLET PO SCH ×2 (13:43→21:35)
--- NOTE | 2016-03-14 13:54 | Admission Physical ---
Datetime Report Generated by CPN: 03/14/2016 13:53 CURRENT ADMISSION Indication for Induction: Gest. HTN/PreEclampsia/Eclampsia Admit Impression- Other: Sent by MFM for IOL for pre-eclampsia w severe range B/P readings 1 wk apart Admit Plan: Admit to Unit; Initiate Labor Induction Protocol ALLERGIES Medication Allergies: No Medication Allergies: No Known Allergies (01/03/2016) Latex: No Latex Allergies Food Allergies: None Environmental Allergies: None OBSTETRICAL HISTORY EDC: 04/10/2016 00:00 : 7 Para: 4 Term: 4 : 0 SAB: 2 IAB: 0 Ectopic: 0 Livin Cesareans: 0 VBACs: 0 Multiple Births: 0 Gestational Diabetes: No Rh Sensitization: No Incompetent Cervix: No GISELLE: No Infertility: No ART Treatment: No Uterine Anomaly: No IUGR: No Hx Previous C/S: No Macrosomia: No Hx Loss/Stillborn: No PIH: Yes Hx : Yes Placenta Previa/Abruption: No Depression/PP Depression: Yes PTL/PROM: No Post Hemorrhage: No Current Procedures: Ultrasound; NST Obstetrical History Comments: G1: 02/09/2008: at 38.4 weeks, M, Epidural, pre-e G2: 02/04/2010: at 37 weeks, M, Epidural, pre-e, Baby dies at 8 weeks G3: 08/07/2011: at 37 weeks, M, Epidrural, pre-e G4: 12/05/2012: SAB? G5: 03/2013: SAb with d_c G6: 04/30/2014: , M, no complications or anesthesia G7: current SEE RECORDS Alcohol: No Marijuana : No Cocaine: No Other Illicit Drugs: No Cigarettes: Former Smoker. [id number] MEDICAL HISTORY Diabetes: No Blood Transfusion: No Pulmonary Disease (Asthma, TB): No Breast Disease: No Hypertension: No Computer Operations Manager Surgery: No Heart Disease: No Hosp/Surgery: Yes Autoimmune Disorder: No Anesthetic Complications: No Kidney Disease: No Abnormal Pap Smear: No Neuro/Epilepsy: No Psychiatric Disorders: No Other Medical Diseases: No Hepatitis/Liver Disease: No Significant Family History: No Varicosities/Phlebitis: No Trauma/Violence : No Thyroid Dysfunction: Yes Medical History Comments: Hypothyroid on synthroid anxiety,depression, PTSD, Jan 0603/2013 GERD, H/o Pre Eclampsia INFECTIOUS HISTORY Gonorrhea: No Genital Herpes: No Chlamydia: No Tuberculosis: No Syphilis: No Hepatitis: No HIV/AIDS Exposure: No Rash or Viral Illness: No HPV: No PHYSICAL EXAM General: Normal HEENT: Normal Neurologic: Normal Thyroid: Deferred Heart: Normal Lungs: Normal Breast: Deferred Back: Normal Abdomen: Normal Genitourinary Exam: Normal Extremities: Normal DTRs: Normal Pelvic Type: Adequate Physical Exam Comments: Gravid uterus Vital Signs: Reviewed Details Vital Signs: elevated b/p VAGINAL EXAM Dilatation: 7 Effacement: 80 Station: -2 Contraction Comments: q 2-3 MEMBRANES Pooling: Positive Membranes: Ruptured FETUS A Monitoring: External US FHR- Baseline: 150 Variability: Moderate 6-25bpm Accelerations: 15X15 Decelerations: None FHR Category: Category I Presentation: Vertex Admit Comment: Proven for 9lbs 7oz Pre-eclampsia x 5 pregnancies Hx SIDS at 8 wks in 2013 Obesity Hypothyroidism Hx anxiety/depresssion-on meds Multiple tattoos Hx 2 first trimester losses-on Prometrium Total protein of 578 on 01/06/16 Will proceed with IOL with Pitocin per recommendation from MFM for preeclampsia with severe range b/p x2 1 wk apart PLANS FOR LABOR AND DELIVERY Labor and Delivery: Placenta Request; Other, Specify Pain Management: Natural Feeding Preference: Breast Benefit of Breast Feed Discussed: Yes Circumcision: N/A INFORMED CONSENT Informed Consent Obtained: Vaginal Delivery; Risks, Benefits and Alternatives Discussed Assignment: Darling Rashdi MD Signature: with User ID: Constantin : with User ID: [email or web address] : I personally evaluated and examined the patient in conjunction with the MLP and agree with the assessment, treatment plan and disposition.
--- NOTE | 2016-03-14 14:01 | L&D Flow Sheet ---
LD Flowsheet Datetime Report Generated by CPN: 03/14/2016 14:00 Datetime: 03/14/2016 13:42 NBP Sys/Tori/Mean (mmHg): 138 (QS system process) : 74 (QS system process) : 99 (QS system process) Pulse: 112 (QS system process) Datetime: 03/14/2016 13:04 NBP Sys/Tori/Mean (mmHg): 145 (QS system process) : 79 (QS system process) : 107 (QS system process) Pulse: 90 (QS system process) Datetime: 03/14/2016 12:10 Magnesium/Antihypertensives: Magnesium Sulfate Discontinued (Toyin Camp, RNC) Patient Care Comments: teds/scds removed (Toyin Camp, RNC) Datetime: 03/14/2016 12:01 NBP Sys/Tori/Mean (mmHg): 138 (QS system process) : 70 (QS system process) : 97 (QS system process) Pulse: 100 (QS system process) Respirations: 16 (Toyin Camp, RNC) Datetime: 03/14/2016 12:00 Level of Consciousness: Fully Conscious (Toyin Camp, RN) DTR's/Clonus: DTRs 2+; No Clonus (Toyin Camp, RNC) Headache: Denies (Toyin Camp, RN) Breath Sounds, Left: Clear and Equal (Toyin Camp, [facility]) Breath Sounds, Right: Clear and Equal ([facility], RN) Nausea/Vomiting: Denies (Toyin Camp, RN) RUQ Epigastric Pain: Denies (Toyin Camp, RN)
[2016-03-14] MEDS: FERROUS SULFATE 325 MG TABLET PO SCH ×2 (18:10→18:18)
[2016-03-14] MEDS: NIFEDIPINE 30 MG TAB.ER.24 PO SCH (18:10)
[2016-03-14] MEDS: SENNOSIDES/DOCUSATE 8.6-50 MG 1 EACH TABLET PO SCH (18:10)
[2016-03-14] MEDS: PRENATAL VITAMIN W-O CA NO5/FE FUMARATE/FA CAPSULE PO SCH (18:10)
[2016-03-14] MEDS: DOCUSATE SODIUM 100 MG CAPSULE PO SCH ×2 (18:10→18:18)
--- NOTE | 2016-03-14 19:01 | L&D Flow Sheet ---
LD Flowsheet Datetime Report Generated by CPN: 03/14/2016 19:00 Datetime: 03/14/2016 13:42 NBP Sys/Tori/Mean (mmHg): 138 (QS system process) : 74 (QS system process) : 99 (QS system process) Pulse: 112 (QS system process) Respirations: 16 ([place], RNC) Temperature (F): 98.7 ([place], R[place]) Temperature (C): 37.1 (QS system process) Temperature Route: Oral ([place], R[place]) Pain Scale: 1 ([place], R[place]) Pain Presence: Intermittent ([place], R[place]) Pain Type: Cramping ([place], RNC) Pain Location: Abdomen ([place], R[place]) Pain Assessment Comments: denies neednfor intervention ([place], R[place]) Datetime: 03/14/2016 13:04 NBP Sys/Tori/Mean (mmHg): 145 (QS system process) : 79 (QS system process) : 107 (QS system process) Pulse: 90 (QS system process) Respirations: 16 ([place], R[place]) Datetime: 03/14/2016 12:10 Magnesium/Antihypertensives: Magnesium Sulfate Discontinued ([place], R[place]) Patient Care Comments: teds/scds removed ([place], RNC) Datetime: 03/14/2016 12:01 NBP Sys/Tori/Mean (mmHg): 138 (QS system process) : 70 (QS system process) : 97 (QS system process) Pulse: 100 (QS system process) Respirations: 16 ([place], R[place]) Datetime: 03/14/2016 12:00 Level of Consciousness: Fully Conscious ([place], R[place]) DTR's/Clonus: DTRs 2+; No Clonus ([place], R[place]) Headache: Denies ([place], [place]) Breath Sounds, Left: Clear and Equal ([place], R[place]) Breath Sounds, Right: Clear and Equal ([place], R[place]) Nausea/Vomiting: Denies ([place], R[place]) RUQ Epigastric Pain: Denies ([place], R[place]) Datetime: 03/14/2016 11:45 Pain Scale: 2 ([place], [place]) Pain Presence: Intermittent ([place], [place]) Pain Type: Cramping ([place], [place]) Pain Location: Abdomen ([place], [place]) Pain Relief Measures: Pain Medication Given; Comfort Measures ([place], [place]) Pain Assessment Comments: states reduction in cramping and pain level since po pain meds given ([place], R[place]) Datetime: 03/14/2016 11:31 NBP Sys/Tori/Mean (mmHg): 134 (QS system process) : 70 (QS system process) : 95 (QS system process) Pulse: 98 (QS system process) Respirations: 16 ([place], R[place]) Datetime: 03/14/2016 11:01 NBP Sys/Tori/Mean (mmHg): 140 (QS system process) : 71 (QS system process) : 99 (QS system process) Pulse: 95 (QS system process) Respirations: 16 ([place], R[place]) Temperature (F): 97.7 ([place], [place]) Temperature (C): 36.5 (QS system process) Temperature Route: Oral ([place], [place]) Pain Scale: 3 ([place], R[place]) Pain Presence: Intermittent ([place], [place]) Pain Type: Cramping ([place], [place]) Pain Location: Abdomen ([place], [place]) Pain Goal: 2 ([place], R[place]) Datetime: 03/14/2016 11:00 Level of Consciousness: Fully Conscious ([place], [place]) DTR's/Clonus: DTRs 2+; No Clonus ([place], [place]) Headache: Denies ([place], [place]) Breath Sounds, Left: Clear and Equal ([place], [place]) Breath Sounds, Right: Clear and Equal ([place], [place]) Nausea/Vomiting: Denies ([place], [place]) RUQ Epigastric Pain: Denies ([place], [place]) Datetime: 03/14/2016 10:31 NBP Sys/Tori/Mean (mmHg): 144 (QS system process) : 74 (QS system process) : 101 (QS system process) Pulse: 103 (QS system process) Datetime: 03/14/2016 10:01 NBP Sys/Tori/Mean (mmHg): 137 (QS system process) : 63 (QS system process) : 90 (QS system process) Pulse: 111 (QS system process) Respirations: 16 ([place], [place]) Pain Scale: 2 ([place], [place]) Pain Presence: Intermittent ([place], [place]) Pain Type: Cramping ([place], [place]) Pain Location: Abdomen ([place], [place]) Datetime: 03/14/2016 10:00 Level of Consciousness: Fully Conscious ([place], [place]) DTR's/Clonus: DTRs 2+; No Clonus ([place], [place]) Headache: Denies ([place], [place]) Breath Sounds, Left: Clear and Equal ([place], [place]) Breath Sounds, Right: Clear and Equal ([place], R[place]) Nausea/Vomiting: Denies ([place], [place]) RUQ Epigastric Pain: Denies ([place], [place]) Datetime: 03/14/2016 09:31 NBP Sys/Tori/Mean (mmHg): 137 (QS system process) : 69 (QS system process) : 95 (QS system process) Pulse: 101 (QS system process) Respirations: 16 ([place], R[place]) Datetime: 03/14/2016 09:21 NBP Sys/Tori/Mean (mmHg): 132 (QS system process) : 62 (QS system process) : 89 (QS system process) Pulse: 105 (QS system process) Datetime: 03/14/2016 09:01 NBP Sys/Tori/Mean (mmHg): 161 (QS system process) : 79 (QS system process) : 113 (QS system process) Pulse: 104 (QS system process) Respirations: 16 ([place], [place]) Pain Scale: 0 ([place], [place]) Pain Presence: None/Denies ([place], [place]) Pain Type: N/A ([place], [place]) Pain Assessment Comments: denies need for pain management ([place], [place]) Datetime: 03/14/2016 09:00 Level of Consciousness: Fully Conscious ([place], [place]) DTR's/Clonus: DTRs 2+; No Clonus ([place], [place]) Headache: Denies ([place], [place]) Breath Sounds, Left: Clear and Equal ([place], [place]) Breath Sounds, Right: Clear and Equal ([place], [place]) Nausea/Vomiting: Denies ([place], [place]) RUQ Epigastric Pain: Denies ([place], [place]) Datetime: 03/14/2016 08:31 NBP Sys/Tori/Mean (mmHg): 134 (QS system process) : 70 (QS system process) : 95 (QS system process) Pulse: 100 (QS system process) Respirations: 16 ([place], RNC) Datetime: 03/14/2016 08:01 NBP Sys/Tori/Mean (mmHg): 136 (QS system process) : 67 (QS system process) : 95 (QS system process) Pulse: 105 (QS system process) Respirations: 16 ([place], [place]) Temperature (F): 98.5 ([place], [place]) Temperature (C): 36.9 (QS system process) Temperature Route: Oral ([place], [place]) Temperature Route: Oral ([place], [place]) Pain Scale: 0 ([place], [place]) Pain Presence: None/Denies ([place], [place]) Pain Type: N/A ([place], [place]) Pain Relief Measures: Comfort Measures ([place], [place]) Pain Assessment Comments: ice pack to perineum ([place], [place]) Datetime: 03/14/2016 08:00 Level of Consciousness: Fully Conscious ([place], [place]) DTR's/Clonus: DTRs 2+; No Clonus ([place], [place]) Headache: Denies ([place], [place]) Breath Sounds, Left: Clear and Equal ([place], [place]) Breath Sounds, Right: Clear and Equal ([place], [place]) Nausea/Vomiting: Denies ([place], [place]) RUQ Epigastric Pain: Denies ([place], [place]) Magnesium/Antihypertensives: Magnesium Sulfate IV (Gm/hr) @ (Annotations: 1 gm per hour ) ([place], R[place]) Datetime: 03/14/2016 07:55 NBP Sys/Tori/Mean (mmHg): 137 (QS system process) : 71 (QS system process) : 97 (QS system process) Pulse: 100 (QS system process) Datetime: 03/14/2016 07:40 NBP Sys/Tori/Mean (mmHg): 134 (QS system process) : 69 (QS system process) : 94 (QS system process) Pulse: 107 (QS system process) Datetime: 03/14/2016 07:38 NBP Sys/Tori/Mean (mmHg): 139 (QS system process) : 67 (QS system process) : 94 (QS system process) Pulse: 106 (QS system process) Respirations: 16 ([place], [place]) Pain Scale: 0 ([place], [place]) Pain Presence: None/Denies ([place], [place]) Pain Type: N/A ([place], R[place]) Datetime: 03/14/2016 07:30 Communication Comments: Bedside report to [facility], care relinquished (Chelseafarshad Bricesel, RN) Datetime: 03/14/2016 07:10 IV/Blood Work: IV Started (Roslyn Errichiello, RN) Datetime: 03/14/2016 07:08 NBP Sys/Tori/Mean (mmHg): 164 (QS system process) : 88 (QS system process) : 116 (QS system process) Pulse: 102 (QS system process) Datetime: 03/14/2016 07:00 Level of Consciousness: Fully Conscious (Chelsea Colunga, RN) DTR's/Clonus: DTRs 2+; No Clonus (Chelsea Colunga, RN) Headache: Denies (Chelsea Colunga, RN) Breath Sounds, Left: Clear and Equal (Chelsea Colunga, RN) Breath Sounds, Right: Clear and Equal (Chelsea Colunga, RN) Nausea/Vomiting: Denies (Chelsea Colunga, RN) RUQ Epigastric Pain: Denies (Chelsea Colunga, RN)
--- NOTE | 2016-03-15 06:00 | L&D General Admission ---
General Admit Datetime Report Generated by CPN: 03/15/2016 06:00 INFORMATION Patient Age: 30 (01/03/2016 09:54:QS system process) EDC: 04/10/2016 00:00 (01/03/2016 10:07:ADELA Vega) : 7 (01/03/2016 10:07:ADELA Vega) Para: 4 (03/09/2016 12:02:Philly Arellano RN) Term: 4 (01/03/2016 10:07:ADELA Vega) : 0 (01/03/2016 10:07:ADELA Vega) Spontaneous Abortions: 2 (01/03/2016 10:07:ADELA Vega) Induced Abortions: 0 (01/03/2016 10:07:ADELA Vega) Livin (01/03/2016 10:07:ADELA Vega) Cesareans: 0 (01/03/2016 10:07:ADELA Vega) VBACs: 0 (01/03/2016 10:07:ADELA Vega) Ectopic: 0 (01/03/2016 10:07:ADELA Vega) Multiple Births: 0 (01/03/2016 10:07:ADELA Vega) Baby, Number in Womb: 1 (03/09/2016 12:02:Philly Arellano RN) CARE Primary Catalyst Impregnator: [facility] (01/03/2016 10:07:ADELA Vega) Adequate Care: Yes (01/03/2016 10:07:ADELA Vega) Prepregnancy Weight (lb): 229 (01/03/2016 10:07:Philly Arellano RN) Prepregnancy Weight (kg): 104.1 (01/03/2016 10:07:QS system process) Height (in): 71 (03/14/2016 13:53:QS system process) ALLERGIES Medication Allergy: No (01/03/2016 10:07:ADELA Vega) Medication Allergies: No Known Allergies (01/03/2016) (01/03/2016 10:11:QS system process) Latex Allergy: No Latex Allergies (01/03/2016 10:07:ADELA Vega) Food Allergies: None (01/03/2016 10:07:Genesis Romero RN) Environmental Allergies: None (01/03/2016 10:07:Genesis Romero RN) COMMUNICATION Primary Language: Pakistani (01/03/2016 10:07:ADELA Vega) Medical Tx Preferred Language: Pakistani (01/03/2016 10:07:Philly Arellano RN) Communication Barrier(s): None (01/03/2016 10:07:Genesis Romero RN) DEMOGRAPHICS Address: [address] [place] [id number] (01/03/2016 09:54:QS system process) Zipcode: [id number] (01/03/2016 09:54:QS system process) Home (01/03/2016 09:54:QS system process) N: [phone] (01/03/2016 09:54:QS system process) Next of Kin Name: GRETTA GARCIA (01/03/2016 09:54:QS system process) Next of Kin (01/03/2016 09:54:QS system process) Next of Kin Relationship: OR (01/03/2016 09:54:QS system process) Date of : 1985 (01/03/2016 09:54:QS system process) Marital Status: Single (01/03/2016 09:54:QS system process) Sex: Female (01/03/2016 09:54:QS system process) Race: (01/03/2016 09:54:QS system process) Ethnicity: Non- or (01/03/2016 09:54:QS system process) Protestant: None (01/03/2016 09:54:QS system process) DRUG AND ALCOHOL USE Alcohol: No (01/03/2016 10:07:Philly Arellano RN) Cigarettes: Former Smoker. [id number] (01/03/2016 10:07:ADELA Vega) Marijuana: No (01/03/2016 10:07:Philly Arellano RN) Cocaine: No (01/03/2016 10:07:Philly Arellano RN) Other Illicit Drugs: No (01/03/2016 10:07:Philly Arellano RN) VACCINE HISTORY Influenza Vaccine: No (01/03/2016 10:07:Genesis Romero RN) Pneumococcal Vaccine: No (01/03/2016 10:07:Genesis Romero RN) Tetanus Vaccine: No (01/03/2016 10:07:Genesis Romero RN) Tdap Vaccine: No (01/03/2016 10:07:Genesis Romero RN) Hepatitis B Vaccine: No (01/03/2016 10:07:Genesis Romero RN) Project Mgr: [facility] (01/03/2016 10:07:Genesis Romero RN) Feeding Preference: Breast (01/03/2016 10:07:Genesis Romero RN) Benefit of Breast Feed Discussed: Yes (01/03/2016 10:07:Genesis Romero RN) Circumcision: N/A (01/03/2016 10:07:Genesis Romero RN) Classes Attended: No (01/03/2016 10:07:Genesis Romero RN) Tubal Ligation: No (01/03/2016 10:07:Genesis Romero RN) Tubal Authorization Signed: N/A (01/03/2016 10:07:Genesis Romero RN) Consent: N/A (01/03/2016 10:07:Genesis Romero RN) Consent Signed: N/A (01/03/2016 10:07:Genesis Romero RN) Pain Management Plans: Natural (01/03/2016 10:07:Chelsea Colunga RN) Plans for Labor and Delivery: Placenta Request; Other, Specify (01/03/2016 10:07:Genesis Romero RN) Other Labor and Delivery Plans: Delayed cord clamping, patients requests to give baby first bath (01/03/2016 10:07:Genesis Romero RN) Support Person: Gretta Garcia (01/03/2016 10:07:Genesis Romero RN) Support Person Relationship: Significant Other (01/03/2016 10:07:Genesis Romero RN) Cultural/Spritual Practice: No (01/03/2016 10:07:Genesis Romero RN) Spir/Cult Dietary Needs: No (01/03/2016 10:07:Genesis Romero RN) LIVING SITUATION/DISCHARGE PLAN Living Arrangements: House (01/03/2016 10:07:Genesis Romero RN) Adequate Access to:: Electric; Heat; Refrigeration; Plumbing/Running water; Phone; Transportation (01/03/2016 10:07:Genesis Romero RN) WIC Program: No (01/03/2016 10:07:Genesis Romero RN) Discharge Swing Tender Person: Gretta Garcia (01/03/2016 10:07:Gneesis Romero RN) Person to Help after Discharge: Gretta Garcia (01/03/2016 10:07:Genesis Romero RN) Currently Using Commun Resources: Yes (01/03/2016 10:07:Genesis Romero RN) Specify Current Resource Used: Medicaid (01/03/2016 10:07:Genesis Romero RN) Outside Agency/Delivery Rep: Yes (01/03/2016 10:07:Genesis Romero RN) Specify Agency/ Delivery Rep: unsure (01/03/2016 10:07:Genesis Romero RN) Car Seat for Discharge: Yes (01/03/2016 10:07:Genesis Romero RN) Adoption Requested: No (01/03/2016 10:07:Genesis Romero RN) Pt Contact w/ Post : N/A (01/03/2016 10:07:Genesis Romero RN) LABS Blood Type: B Positive (01/03/2016 10:07:Philly Arellano RN) Antibody Screen: Negative (01/03/2016 10:07:Philly Arellano RN) Hemoglobin: 10.5 L (03/14/2016 06:48:QS system process) Hematocrit: 32.2 L (03/14/2016 06:48:QS system process) MCV: 82 (03/14/2016 06:48:QS system process) Group Beta Strep: Unknown (01/03/2016 10:07:Philly Arellano RN) Gonorrhea: Negative (01/03/2016 10:07:Philly Arellano RN) Chlamydia: Negative (01/03/2016 10:07:Philly Arellano RN) RPR/VDRL: Nonreactive (01/03/2016 10:07:Philly Arellano RN) Hepatitis B: Negative (01/03/2016 10:07:Philly Arellano RN) Rubella: Immune (01/03/2016 10:07:Philly Arellano RN) OB/PREVIOUS HISTORY Previous Procedures: Ultrasound; NST (01/03/2016 10:07:Genesis Romero RN) Current Procedures: Ultrasound; NST (01/03/2016 10:07:Genesis Romero RN) History of Previous : No (01/03/2016 10:07:ADELA Vega) History of Gestational Diabetes: No (01/03/2016 10:07:ADELA Vega) History of PIH: Yes (01/03/2016 10:07:ADELA Vega) History of Incompetent Cervix: No (01/03/2016 10:07:ADELA Vega) History of Placenta Previa/Abrup: No (01/03/2016 10:07:ADELA Vega) History of Macrosomia: No (01/03/2016 10:07:ADELA Vega) History of IUGR: No (01/03/2016 10:07:ADELA Vega) History of Hemorrhage: No (01/03/2016 10:07:ADELA Vega) History of Loss/Stillborn: No (01/03/2016 10:07:ADELA Vega) History of : Yes (01/03/2016 10:07:ADELA Vega) History of D (Rh) Sensitization: No (01/03/2016 10:07:ADELA Vega) History Recurrent Loss/Stillborn: No (01/03/2016 10:07:ADELA Vega) History Depression/PP Depression: Yes (01/03/2016 10:07:ADELA Vega) History of Uterine Anomaly/GISELLE: No (01/03/2016 10:07:ADELA Vega) History of Infertility: No (01/03/2016 10:07:ADELA Vega) History of ART Treatment: No (01/03/2016 10:07:ADELA Vega) History of GISELLE: No (01/03/2016 10:07:ADELA Vega) Comments Obstetrical History: G1: 02/09/2008: at 38.4 weeks, M, Epidural, pre-e G2: 02/04/2010: at 37 weeks, M, Epidural, pre-e, Baby dies at 8 weeks G3: 08/07/2011: at 37 weeks, M, Epidrural, pre-e G4: 12/05/2012: SAB? G5: 03/2013: SAb with d_c G6: 04/30/2014: , M, no complications or anesthesia G7: current (01/03/2016 10:07:Philly Arellano RN) MEDICAL HISTORY Med Hx Diabetes: No (01/03/2016 10:07:ADELA Vega) Med Hx Hypertension: No (01/03/2016 10:07:ADELA Vega) Med Hx Heart Disease: No (01/03/2016 10:07:ADELA Vega) Med Hx Autoimmune Disorder: No (01/03/2016 10:07:ADELA Vega) Med Hx Kidney Disease/UTI: No (01/03/2016 10:07:ADELA Vega) Med Hx Neurologic/Epilepsy: No (01/03/2016 10:07:ADELA Vega) Med Hx Psychiatric Disorders: No (01/03/2016 10:07:ADELA Vega) Med Hx Hepatitis/Liver Disease: No (01/03/2016 10:07:ADELA Vega) Med Hx Varicosities/Phlebitis: No (01/03/2016 10:07:ADELA Vega) Med Hx Thyroid Dysfunction: Yes (01/03/2016 10:07:ADELA Vega) Med Hx Trauma/Violence: No (01/03/2016 10:07:ADELA Vega) Med Hx Blood Transfusion: No (01/03/2016 10:07:ADELA Vega) Med Hx Pulmonary (Asthma,TB): No (01/03/2016 10:07:ADELA Vega) Med Hx Breast: No (01/03/2016 10:07:ADELA Vega) Med 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 (01/03/2016 10:07:ADELA Vega) Med Hx Hospitalization/Surgery: Yes (01/03/2016 10:07:Genesis Romero RN) Med Hx Anesthetic Complications: No (01/03/2016 10:07:ADELA Vega) Med Hx Abnormal Pap Smear: No (01/03/2016 10:07:ADELA Vega) Other Medical Diseases: No (01/03/2016 10:07:ADELA Vega) Med Hx Significant Family Hx: No (01/03/2016 10:07:ADELA Vega) Details of Med/Surg Hx: Hypothyroid on synthroid anxiety,depression, PTSD, Jan 0603/2013 GERD, H/o Pre Eclampsia (01/03/2016 10:07:Carl Gibbs RN) INFECTIOUS HISTORY Inf Hx Gonorrhea: No (01/03/2016 10:07:ADELA Vega) Inf Hx Chlamydia: No (01/03/2016 10:07:ADELA Vega) Inf Hx Syphilis: No (01/03/2016 10:07:ADELA Vega) Inf Hx HIV/AIDS: No (01/03/2016 10:07:ADELA Vega) Inf Hx Human Papilloma Virus: No (01/03/2016 10:07:ADELA Vega) Inf Hx Pt/Partner Genital Herpes: No (01/03/2016 10:07:ADELA Vega) Inf Hx Tuberculosis/Exposure: No (01/03/2016 10:07:ADELA Vega) Inf Hx Hepatitis B,C: No (01/03/2016 10:07:ADELA Vega) Inf Hx Rash or Viral Illness: No (01/03/2016 10:07:ADELA Vega) GENETIC HISTORY Gen Hx Age >=35 at [place]: No (01/03/2016 10:07:ADELA Vega) Gen Hx Thalassemia: No (01/03/2016 10:07:ADELA Vega) Gen Hx Congenital Heart Defect: No (01/03/2016 10:07:ADELA Vega) Gen Hx Neural Tube Defect: No (01/03/2016 10:07:ADELA Vega) Gen Hx Down's Syndrome: No (01/03/2016 10:07:ADELA Vega) Gen Hx Eitan-Sachs: No (01/03/2016 10:07:Genesis Romero RN) Gen Hx Rei: No (01/03/2016 10:07:Genesis Romero RN) Gen Hx Familial Dysautonomia: No (01/03/2016 10:07:Genesis Romero RN) Gen Hx Sickle Cell Disease/Trait: No (01/03/2016 10:07:Genesis Romero RN) Gen Hx Hemophilia/Blood Disorder: No (01/03/2016 10:07:Genesis Romero RN) Gen Hx Muscular Dystrophy: Yes (01/03/2016 10:07:Genesis Romero RN) Gen Hx Cystic Fibrosis: No (01/03/2016 10:07:ADELA Vega) Gen Hx Huntingtons Chorea: No (01/03/2016 10:07:ADELA Vega) Gen Hx Mental Retardation/Autism: No (01/03/2016 10:07:ADELA Vega) Gen Hx Tested for Fragile X: No (01/03/2016 10:07:ADELA Vega) Gen Hx Other Inher/Chromosomal: No (01/03/2016 10:07:ADELA Vega) Gen Hx Maternal Metabolic DO: No (01/03/2016 10:07:ADELA Vega) Gen Hx Pt Father or FOB Defect: No (01/03/2016 10:07:ADELA Vega) Gen Hx Other Genetic History: No (01/03/2016 10:07:ADELA Vega) Gen Hx Drugs/Meds since LMP: No (01/03/2016 10:07:ADELA eVga) Details of Genetic History: FOB has family hx of muscular dystrophy. (01/03/2016 10:07:Philly Arellano RN)
--- NOTE | 2016-03-15 06:00 | L&D Current Admission ---
Current Admit Datetime Report Generated by CPN: 03/15/2016 06:00 ADMISSION INFORMATION Current Admit Date/Time: 03/13/2016 10:59 (03/09/2016 10:40:Philly Arellano RN) Reason for Admission: Induction of Labor (03/09/2016 10:40:Philly Arellano RN) Chief Complaint: Other (Annotations: Direct admit for pre-eclampsia ) (03/13/2016 11:10:Philly Arellano RN) Medications During : Vitamin; Rantidine (Zantac); Sertraline (Zoloft) (03/09/2016 10:40:Philly Arellano RN) Meds During -Oth: Direct admit for pre-eclampsia (03/09/2016 10:40:Philly Arellano RN) EGA per Dates: 36.0 (03/09/2016 10:40:QS system process) Method of Arrival: Ambulatory (03/09/2016 10:40:Philly Arellano RN) Admitted From: [facility] Department (03/09/2016 10:40:Philly Arellano RN) Reason for Induction: Pre-Eclampsia (03/09/2016 10:40:Philly Arellano RN) Records Available: Yes (03/09/2016 10:40:Philly Arellano RN) General Admission Information: Reviewed; Updated; Confirmed (03/09/2016 10:40:Philly Arellano RN) General Admission Reviewed By: Cedric Arellano RN (03/09/2016 10:40:Philly Arellano RN) BELONGINGS/ADVANCED DIRECTIVES Valuables/Personal Effects: Cell Phone (03/09/2016 10:40:Philly Arellano RN) Other Belongings: See belongings sheet (03/09/2016 10:40:Philly Arellano RN) Disposition of Belongings: Kept with Patient (03/09/2016 10:40:Philly Arellano RN) Advance Direct for Healthcare: No, and Wants No Information (03/09/2016 10:40:Philly Arellano RN) Durable Power of Car Rental Service Attendant: No (03/09/2016 10:40:Philly Arellano RN) Living Will: No (03/09/2016 10:40:Philly Arellano RN) Organ Donor: Yes (03/09/2016 10:40:Philly Arellano RN) Pt Rights Information Given: Yes (03/09/2016 10:40:Philly Arellano RN) Pt Understands Pt Rights: Yes (03/09/2016 10:40:Philly Arellano RN) LEARNING ASSESSMENT Knowledge Level: Understands L_D Process; Understands Care Activities; Had Pre-Hospital Education; Understands Diagnosis (03/09/2016 10:40:Philly Arellano RN) Barriers to Learning: None (03/09/2016 10:40:Philly Arellano RN) Learning Readiness: Motivated (03/09/2016 10:40:Philly Arellano RN) Learns Best By: 1 to 1 Instruction (03/09/2016 10:40:Philly Arellano RN) Learning Needs: Labor and Delivery Process; Pain Management; Symptoms to Report; Treatment Plan; Medication; Diagnosis; Nutrition; Equipment; Care; Community Resources (03/09/2016 10:40:Philly Arellano RN) DOMESTIC VIOLANCE SCREENING Dom Viol Threatened/Hurt: No (03/09/2016 10:40:Philly Arellano RN) Hx of Abuse/Neglect past 2yrs: No (03/09/2016 10:40:Philly Arellano RN) Feel Unsafe Going Home: No (03/09/2016 10:40:Philly Arellano RN) Addt'l Observ Indicating Abuse: No (03/09/2016 10:40:Philly Arellano RN) Reason Unable to Complete Screen: N/A, Screen Completed (03/09/2016 10:40:Philly Arellano RN) Considered Personal Harm/Suicide: No (03/09/2016 10:40:Philly Arellano RN) NUTRITIONAL/FUNCTIONAL SCREENING Problem with Appetite >5 Days: No (03/09/2016 10:40:Philly Arellano RN) Chew/Swallow Difficulties: No (03/09/2016 10:40:Philly Arellano RN) Inappropriate Wt Gain/Loss: No (03/09/2016 10:40:Philly Arellano RN) Presence Skin Breakdown/Ulcer: No (03/09/2016 10:40:Philly Arellano RN) Special Diet: No (03/09/2016 10:40:Philly Arellano RN) Pt Requests Emergency Doctor Visit: No (03/09/2016 10:40:Philly Arellano RN) Hx of Any of the Following?: N/A (03/09/2016 10:40:Philly Arellano RN) New Diagnosis of: N/A (03/09/2016 10:40:Philly Arellano RN) Requires Assist w/Ambulation: No (03/09/2016 10:40:Philly Arellano RN) Uses Assist Device to Ambulate: No (03/09/2016 10:40:Philly Arellano RN) Pt Requires Help w/ADL's: No (03/09/2016 10:40:Philly Arellano RN)
--- NOTE | 2016-03-15 06:15 | L&D Care Plan ---
LD CARE PLANS Datetime Report Generated by CPN: 03/15/2016 06:15 Datetime: 03/13/2016 11:05 Pain State: Risk For (Kaylynn Pastor RN) Related To: Labor and Delivery Process (Kaylynn Pastor RN) Goal(s): Patients Pain will be Assessed and Managed; Patient will Verbalize Adequate Relief of Pain or the Ability to [place] with Current Pain (Kaylynn Pastor RN) Interventions: Assess Pain Severity on Scale of 0 (None) to 5 (Severe); Assess Type, Location and Intensity of Pain Each Time Client Reports Discomfort and Notify Provider if Unusal Pain Develops; Encourage Proper Breathing and Relaxation Techniques; Offer Alternatives Such as Repositioning, Calm Environment, Massages, Diversional Activities, Ice Pack, Splinting, and Ambulation; Administer Analgesics as Ordered; Assist with Epidural Placement as Appropriate; Evaluate Therapeutic Effectiveness of Medication and Treatments (Kaylynn Pastor RN) Outcome: Patient will Report Absence or Relief of Pain Consistent with Established Pain Goal (Kaylynn Pastor RN) Status: Ongoing (Kaylynn Pastor RN) Outcome: Patient will have a Decrease in Signs and Symptoms of Discomfort (Kaylynn Pastor RN) Status: Ongoing (Kaylynn Pastor RN) Outcome: Pain will be Controlled During Procedures (Kaylynn Pastor RN) Status: Ongoing (Kaylynn Pastor RN) Anxiety State: Risk For (Kaylynn Pastor RN) Related To: Labor and Delivery Process (Kaylynn Pastor RN) Goal(s): Patient will have Decreased Anxiety and be able to Function at Acceptable Levels (Kaylynn Pastor RN) Interventions: Assess Verbal and Nonverbal Behavioral Indicators of Anxiety; Assist Patient to Identify and Verbalize Symptoms of Anxiety; Identify and Demonstrate Techniques to Control Anxiety; Assist Patient with Coping Mechanisms to Manage Anxiety; Provide Theraputic Touch for the Patient; Explain to Patient, Using a Calm Reassuring Approach and Nonmedical Terms, All Activities, Procedures, and Concerns; Instruct Patient and Family about Post Discharge Care, Limitations, Symptoms to Report and Resources Available (Kaylynn Pastor RN) Outcome: Patient will Identify, Verbalize and Demonstrate Techniques to Control Anxiety (Kaylynn Pastor RN) Status: Ongoing (Kaylynn aPstor RN) Outcome: Patient's Posture, Facial Expressions, Gestures and Activity Level will Reflect Decreased Anxiety (Kaylynn aPstor RN) Status: Ongoing (Kaylynn Pastor RN) Outcome: Patient will Verbalize a Sense of Control and/or Acceptance of the Situation (Kaylynn Pastor RN) Status: Ongoing (Kaylynn Pastor RN) Outcome: Patient will Identify and Utilize Support Person (Kaylynn Pastor RN) Status: Ongoing (Kaylynn Pastor RN) Knowledge Deficit State: Risk For (Kaylynn Pastor RN) Related To: Labor and Delivery Process (Kaylynn Pastor RN) Goal(s): Patient will Accurately Verbalize Understanding of Plan of Care and Treatment; Patient and Family will Accurately Verbalize Understanding of the Disease Process (Kaylynn Pastor RN) Interventions: Assess Motivation and Willingness of Patient/Family to Learn; Assess Preferred Learning Mode: One to One Instruction, Reading, Videos, Group Discussion or Demonstration; Assess Barriers to Learning: Pain, Emotional State, Language Barrier, Cognitive Impairment, Visual or Hearing Deficits; Assess Patient and Family Knowledge of Disease Process, Medications and Treatment; Discuss Therapy and/or Treatment Options, Describe Rationale Behind Management, Therapy and Treatment Recommendations; Instruct Patient and Family on Signs and Symptoms to Report; Instruct Patient and Family on Medication Effects and Side Effects; Provide Appropriate and Timely Education Using Multiple Techniques; Provide Patient and Family with Support Group Information and Resources; Give Clear and Thorough Explanations and Demonstrations (Kaylynn Pastor RN) Outcome: Patient and Family will Verbalize Understanding of Condition, Treatment and Signs and Symptoms to Report (Kaylynn Pastor RN) Status: Ongoing (Kaylynn Pastor RN) Outcome: Patient will Identify Perceived Learning Needs and Express Motivation to Learn (Kaylynn Pastor RN) Status: Ongoing (Kaylynn Pastor RN) Outcome: Patient will Verbalize Understanding of Desired Content, and/or Performs Desired Skill Prior to Discharge (Kaylynn Pastor RN) Status: Ongoing (Kaylynn Pastor RN) Infection State: Risk For (Kaylynn Pastor RN) Related To: Prolonged Labor or Induction (Kaylynn Pastor RN) Goal(s): The Patient will be Free of Infection, Vital Signs Stable and Lab Work within Normal Parameters (Kaylynn Pastor RN) Interventions: Instruct and Reinforce Proper Handwashing, Hygiene, and Care Techniques to Patient and Family; Monitor Vital Signs; Monitor Patient for the Following Signs of Infection: Fever, Abdominal Tenderness, Unusual Discharge; Monitor Aminiotic Fluid, Urine and Lochia for Color and Odor; Observe Wounds, Incisions and Invasive Line Sites for Redness, Drainage and Edema; Assess IV Sites per Hospital Policy; Monitor Lab and Test Results and Notify Provider of Abnormal Findings; Assess Nutritional Status and Promote Good Nutrition (Kaylynn Pastor RN) Outcome: Patient will Remain Free of Infection (Kaylynn Pastor RN) Status: Ongoing (Kaylynn Pastor RN) Outcome: Infection will be Recognized Early to Allow for Prompt Treatment (Kaylynn Pastor RN) Status: Ongoing (Kaylynn Pastor RN) Outcome: Patient will have Vital Signs Within Expected Range (Kaylynn Pastor RN) Status: Ongoing (Kaylynn Pastor RN) Fluid Volume Related To: Prolonged Labor or Induction (Kaylynn Pastor RN) Goal(s): Patient will Achieve and Maintain a Balanced Fluid Volume Status; Hemodynamically Stable (Kaylynn Pastor RN) Interventions: Monitor Vital Signs; Auscultate Breath Sounds; Monitor Patient for Skin Turgor, Mucous Membranes, Dry Skin, Weakness, Headaches and Confusion; Provide Oral Fluids as Ordered; Initiate and Maintain Intravenous Fluids as Ordered; Monitor Intake and Output as Indicated Per Patient Status; Accurately Measure Blood Loss; Monitor Lab and Test Results as Obtained and Notify Provider of Abnormal Findings; Monitor Patient's Weight (Kaylynn Pastor RN) Outcome: Patient will have Clear Lung Sounds (Kaylynn Pastor RN) Status: Ongoing (Kaylynn Pastor RN) Outcome: Patient will have Vital Signs within Expected Range (Kaylynn Pastor RN) Status: Ongoing (Kaylynn Pastor RN) Outcome: Urine Output will be within Expected Range (Kaylynn Pastor RN) Status: Ongoing (Kaylynn Pastor RN) Outcome: Patient will have Minimal Generalized or Upper Extremity Edema (Kaylynn Pastor RN) Status: Ongoing (Kaylynn Pastor RN) Injury State: Risk For (Kaylynn Pastor RN) Related To: Labor and Delivery Process (Kaylynn Pastor RN) Goal(s): Patient will Remain Free from Injury (Kaylynn Pastor RN) Interventions: Monitoring as per Hospital Protocol; Assess Neurological Status; Perform Risk Assessment of Patients with Induction and ; Perform Fall Risk Assessment and Prevention per Hospital Protocol; Perform DVT Risk Assessment and Prophylaxis per Hospital Protocol; Ensure that Oxygen, Suction, and Resuscitation Medications and Equipment are Readily Available; Confirm Patient ID Prior to Procedure(s) and Medication Administration per Hospital Policy (Kaylynn Pastor RN) Outcome: Successful Fall Risk Prevention (Kaylynn Pastor RN) Status: Ongoing (Kaylynn Pastor RN) Outcome: Patient will Deliver Infant without Adverse Sequela (Kaylynn Pastor RN) Status: Ongoing (Kaylynn Pastor RN) Outcome: Patient's Neurological Status will Remain Stable (Kaylynn Pastor RN) Status: Ongoing (Kaylynn Pastor RN) Impaired Skin Integrity State: Risk For (Kaylynn Pastor RN) Related To: Vaginal Delivery (Kaylynn Pastor RN) Goal(s): Patient will Maintain Optimal Skin Integrity, Free of Breakdown, Injury or Infection (Kaylynn Pastor RN) Interventions: Complete Screening for Pressure Ulcer Risk and Initiate Protocol per Hospital Policy; Monitor Site of Skin Impairment for Color Changes, Redness, Swelling, Warmth, Pain or Other Signs of Infection; Encourage and Assist with Position Changes; Monitor Patient's Mobility Status; Provide Adequate Nutrition and Fluids; Teach Patient Appropriate Hygienic Care; Teach Patient/Family Skin Care Management (Kaylynn Pastor RN) Outcome: Patient will not have Evidence of Injury Such as Skin Breakdown, Scrapes, Cuts, or Bruising (Kaylynn Pastor RN) Status: Ongoing (Kaylynn Pastor RN) Outcome: Patient will Report Any Altered Sensation or Pain at Site of Skin Impairment (Kaylynn Pastor RN) Status: Ongoing (Kaylynn Pastor RN) Outcome: Patients Incisions and Wounds will be without Signs or Symptoms of Infection (Kaylynn Pastor RN) Status: Ongoing (Kaylynn Pastor RN) Outcome: Patient will Demonstrate Understanding of Plan to Heal Skin and Prevent Reinjury and Verbalize Risk Factors (Kaylynn Pastor RN) Status: Ongoing (Kaylynn Pastor RN)
[2016-03-15] MEDS: IBUPROFEN 800 MG TABLET PO SCH ×3 (06:26→22:26)
[2016-03-15] MEDS: PRENATAL VITAMIN W-O CA NO5/FE FUMARATE/FA CAPSULE PO SCH (11:00)
[2016-03-15] MEDS: DOCUSATE SODIUM 100 MG CAPSULE PO SCH ×2 (11:00→19:26)
[2016-03-15] MEDS: FERROUS SULFATE 325 MG TABLET PO SCH ×2 (11:00→19:26)
[2016-03-15] MEDS: SENNOSIDES/DOCUSATE 8.6-50 MG 1 EACH TABLET PO SCH (11:00)
--- NOTE | 2016-03-15 13:41 | PDOC PROGRESS REPORT ---
Subjective-OB Subjective: Post Delivery Day:1 30 year old L4. Ambulating to NICU, /pumping and voiding without difficulty. Denies any needs at this time Physical Exam (OB) Vital Signs: Temp Pulse Resp BP Pulse Ox 98.1 F 91 20 135/86 H 100 03/15/16 04:29 03/15/16 04:29 03/15/16 04:29 03/15/16 04:29 03/15/16 04:29 Intake & Output 03/14/16 03/15/16 03/16/16 06:59 06:59 06:59 Weight 126.15 kg - General General Appearance: Appears well In distress: None - PIH/Pre-Eclampsia DTR's: 2 + Clonus: Negative Headache: Absent Epigastric Pain: No Visual Changes: No PIH/Pre-Eclampsia Note: denies any s/s of eclampsia. Reports no symptoms either prior to IOL just increased BPs - Episiotomy/Laceration Site Condition: N/A - Lochia Lochia Amount: Scant < 10 ml Lochia Color: Rubra/Red - Abdomen Description: Soft, Round Hernia Present: No Fundal Description: Firm, Midline Fundal Height: u/u - u/2 - Respiratory Respiratory Status: No respiratory distress - Extremities Upper extremity: Normal inspection Lower extremities: Normal inspection - Neurological Cognition: Normal Orientation: AAOx4 - Psychological Associated symptoms: Normal affect - baby in NICU. Visited baby in NICU this AM now visiting with and other children in room., Normal mood - bonding well with baby Objective-Diagnostic Laboratory: 03/14/16 06:48 03/14/16 06:48 Assessment and Plan(PN) - Assessment and Plan (1) delivery Is this a current diagnosis for this admission?: YesPlan: continue stay (2) Pre-eclampsia Qualifiers: Trimester: unspecified trimester Qualified Code(s): O14.90 - Unspecified pre-eclampsia, unspecified trimester Is this a current diagnosis for this admission?: YesPlan: continue stay (3) Anemia Qualifiers: Anemia type: iron deficiency Is this a current diagnosis for this admission?: YesPlan: continue iron supplementation (4) Hypothyroid Qualifiers: Hypothyroidism type: acquired Qualified Code(s): E03.9 - Hypothyroidism, unspecified Is this a current diagnosis for this admission?: YesPlan: continue synthroid (5) Depression Qualifiers: Depression Type: other depression Qualified Code(s): F32.89 - Other specified depressive episodes Is this a current diagnosis for this admission?: NoPlan: continue stay - Time Spent with Patient Time with patient: 15-25 minutes Medications reviewed and adjusted accordingly: Yes - Disposition Anticipated Discharge: Home Within: within 24 hours
[2016-03-15] MEDS: ACETAMINOPHEN WITH CODEINE #3 TABLET PO PRN (13:50)
[2016-03-15] MEDS: NIFEDIPINE 30 MG TAB.ER.24 PO SCH (13:51)
[2016-03-15] MEDS ORDERED: SERTRALINE HCL 50 MG TABLET PO SCH (22:00)
[2016-03-15] MEDS: SERTRALINE HCL 50 MG TABLET PO SCH (22:27)
[2016-03-15] MEDS: BUPROPION HCL 75 MG TABLET PO SCH (22:36)
[2016-03-16] MEDS: IBUPROFEN 800 MG TABLET PO SCH ×3 (05:47→21:09)
[2016-03-16] MEDS: LEVOTHYROXINE SODIUM 0.1 MG TABLET PO SCH (08:13)
--- NOTE | 2016-03-16 09:21 | PDOC PROGRESS REPORT ---
Subjective-OB Subjective: Post Delivery Day: 30 year old. Denies any needs at this time. Wants to stay as baby in NICU for wt issues and jaundice. Physical Exam (OB) Vital Signs: Temp Pulse Resp BP Pulse Ox 98.3 F 89 17 141/71 H 100 03/16/16 07:40 03/16/16 07:40 03/16/16 07:40 03/16/16 07:40 03/16/16 07:40 Intake & Output 03/15/16 03/16/16 03/17/16 06:59 06:59 06:59 Intake Total 250 Balance 250 - PIH/Pre-Eclampsia DTR's: 1 + Clonus: Negative Headache: Absent Epigastric Pain: No Visual Changes: No - Lochia Lochia Amount: Scant < 10 ml Lochia Color: Rubra/Red - Abdomen Description: Soft, Round Hernia Present: No Bowel Sounds: Normoactive Flatus Presence: Present Stool: Yes Fundal Description: Firm, Midline Fundal Height: u/u - u/2 Objective-Diagnostic Laboratory: 03/14/16 06:48 03/14/16 06:48 03/13/16 14:08 Vaginal/Anorectal Group B Streptococcus Culture - Final NO GROUP B STREPTOCOCCUS RECOVERED Assessment and Plan(PN) - Time Spent with Patient Medications reviewed and adjusted accordingly: Yes - Disposition Anticipated Discharge: Home
[2016-03-16] MEDS: PRENATAL VITAMIN W-O CA NO5/FE FUMARATE/FA CAPSULE PO SCH (10:02)
[2016-03-16] MEDS: DOCUSATE SODIUM 100 MG CAPSULE PO SCH ×2 (10:02→18:13)
[2016-03-16] MEDS: FERROUS SULFATE 325 MG TABLET PO SCH ×2 (10:03→18:13)
[2016-03-16] MEDS: SENNOSIDES/DOCUSATE 8.6-50 MG 1 EACH TABLET PO SCH (10:03)
[2016-03-16] MEDS: BUPROPION HCL 75 MG TABLET PO SCH ×2 (10:06→21:08)
[2016-03-16 10:27] LABS: MEAN CORPUSCULAR HEMOGLOBIN 27.1 pg (27.0-33.4); MEAN CORPUSCULAR HGB CONC 33.2 g/dL (32.0-36.0); MEAN CORPUSCULAR VOLUME 82 fl (80-97); RED BLOOD COUNT 4.05 10^6/uL (3.72-5.28); WHITE BLOOD COUNT 10.2 10^3/uL (4.0-10.5)
[2016-03-16] MEDS: NIFEDIPINE 30 MG TAB.ER.24 PO SCH (12:13)
[2016-03-16] MEDS: ACETAMINOPHEN WITH CODEINE #3 TABLET PO PRN (20:28)
[2016-03-16] MEDS: SERTRALINE HCL 50 MG TABLET PO SCH (21:09)
[2016-03-17] MEDS: IBUPROFEN 800 MG TABLET PO SCH ×2 (06:06→15:03)
[2016-03-17] MEDS: LEVOTHYROXINE SODIUM 0.1 MG TABLET PO SCH (07:36)
[2016-03-17] MEDS: FERROUS SULFATE 325 MG TABLET PO SCH (09:36)
[2016-03-17] MEDS: SENNOSIDES/DOCUSATE 8.6-50 MG 1 EACH TABLET PO SCH (09:36)
[2016-03-17] MEDS: PRENATAL VITAMIN W-O CA NO5/FE FUMARATE/FA CAPSULE PO SCH (09:36)
[2016-03-17] MEDS: DOCUSATE SODIUM 100 MG CAPSULE PO SCH (09:37)
[2016-03-17] MEDS: BUPROPION HCL 75 MG TABLET PO SCH (09:40)
--- NOTE | 2016-03-17 10:54 | PDOC DISCHARGE SUMMARY ---
Final Diagnosis Discharge Date: 03/17/16 - Final Diagnosis (1) Pre-eclampsia Is this a current diagnosis for this admission?: Yes (2) delivery Is this a current diagnosis for this admission?: Yes (3) Anemia Is this a current diagnosis for this admission?: Yes (4) Depression Is this a current diagnosis for this admission?: Yes (5) Hypothyroid Is this a current diagnosis for this admission?: Yes (6) Normal vaginal delivery Is this a current diagnosis for this admission?: Yes Discharge Data - Discharge Medication Home Medications: Levothyroxine Sodium [Synthroid 0.025 mg Tablet] 0.075 mg PO DAILY 02/23/14 Bupropion HCl [Wellbutrin Sr 150 mg Tablet] 150 tab PO DAILY 01/03/16 Cmb#95/Iron/FA/Dha [ + Dha Combo Pack] 1 tab PO DAILY 01/03/16 Sertraline HCl [Zoloft 50 mg Tablet] 150 tab PO QHS 01/03/16 Ranitidine HCl [Zantac 150 mg Tablet] 1 tab PO PRN PRN 03/06/16 Ibuprofen [Motrin 800 mg Tablet] 800 mg PO Q8 #90 tablet 03/17/16 Reason(s) for Admission: Induction of Labor Procedures: None, NST, Management of Medical Complications, Management of Obstetric Complications Intrapartum Procedure(s): Spontaneous Vaginal Delivery - Data Baby 1 Female at 1 minute: 7 at 5 minutes: 9 Home with Mother: Yes Complications: No - Diagnosis Test Laboratory: Temp Pulse Resp BP Pulse Ox 98.1 F 97 18 129/69 H 100 03/17/16 08:15 03/17/16 08:15 03/17/16 08:15 03/17/16 07:49 03/17/16 08:15 03/13/16 03/13/16 03/13/16 10:52 11:09 21:30 RBC 3.92 3.68 L Hgb 10.7 L 9.9 L Hct 32.2 L 30.0 L Urine Opiates Screen NEGATIVE 03/14/16 03/16/16 06:48 10:15 RBC 3.94 4.05 Hgb 10.5 L 11.0 L Hct 32.2 L 33.0 L Urine Opiates Screen - Discharge information/Instructions Discharge Activity: Activity As Tolerated, Bedrest, No Lifting Over 10 Pounds, No Lifting/Push/Pulling, Pelvic Rest, No tub bath Discharge Diet: Regular Disposition: HOME, SELF-CARE Follow up with: [facility] in: 1 - follow up for bp
[2016-03-17] MEDS: NIFEDIPINE 30 MG TAB.ER.24 PO SCH (12:04)
[2016-03-17 12:07] VITALS: BP 147/91
== END 2016-03-17 18:20 | disposition home or self-care (01) | DRG 774 ==
LOC: LC 10:30 → LR 10:42 → 2S 03-14 13:51
PROVIDERS: ADMIT Student in an Organized Health Care Education/Training Program; ATTEND Student in an Organized Health Care Education/Training Program
PROC: 10907ZC Drainage of Amniotic Fluid, Therapeutic from Products of Conception, Via Natural or Artificial Opening (ICD-10-PCS; 2016-03-13)
PROC: 3E033VJ Introduction of Other Hormone into Peripheral Vein, Percutaneous Approach (ICD-10-PCS; 2016-03-13)
PROC: 4A1HXCZ Monitoring of Products of Conception, Cardiac Rate, External Approach (ICD-10-PCS; 2016-03-13)
PROC: 10E0XZZ Delivery of Products of Conception, External Approach (ICD-10-PCS; principal; 2016-03-14)
DX: O14.14 Severe pre-eclampsia complicating childbirth (principal); O72.1 Other immediate postpartum hemorrhage; O99.284 Endocrine, nutritional and metabolic diseases complicating childbirth; O99.02 Anemia complicating childbirth; E03.9 Hypothyroidism, unspecified; O99.344 Other mental disorders complicating childbirth; F32.9 Major depressive disorder, single episode, unspecified; D64.9 Anemia, unspecified; O99.214 Obesity complicating childbirth; E66.9 Obesity, unspecified; O69.2XX0 Labor and delivery complicated by other cord entanglement, with compression, not applicable or unspecified; Z37.0 Single live birth; Z3A.36 36 weeks gestation of pregnancy; Z68.38 Body mass index [BMI] 38.0-38.9, adult
CPT/HCPCS: 36415; 80053; 80307; 81005; 83615; 84550; 85025; 85027; 86592; 86850; 86900; 86901; 87081; 87491; 87591; J0360; J2210; J2540; J2590; J3010; J3475; J3490

== ENCOUNTER 2016-06-29 08:49 | Emergency (ER) | payer MEDICAID ==
[2016-06-29] MEDS ORDERED: CEPHALEXIN 500 MG CAPSULE PO ONE (09:20)
[2016-06-29] MEDS ORDERED: IBUPROFEN 600 MG TABLET PO ONE (09:20)
--- NOTE | 2016-06-29 09:24 | ER Document Report ---
ED Breast Problem - General Chief Complaint: Breast Problem Stated Complaint: RIGHT BREAST PAIN Time Seen by Provider: 06/29/16 09:03 Mode of Arrival: Ambulatory Information source: Patient Notes: 30-year-old female presents to ED mastitis to the right breast guarding last night. Her breast is tender minimally firm warm to touch and red. She states she has had mastitis 3 times before. She states she delivered April 30, 2014 and she had mastitis on March [id number] 27, 2015 and May of 2015. She states she needed to take antibiotics each time in order to get rid of the mastitis. TRAVEL OUTSIDE OF THE [place] IN LAST 30 DAYS: No - HPI Patient complains to provider of: Redness, Swelling, Tenderness Onset: Yesterday Onset/Duration: Gradual Quality of pain: Burning Severity: Severe Pain Level: 5 Drainage amount: Moderate Discharge description: Yellow - yellow green Associated Symptoms: Fever, Other - pain, erythema Similar symptoms previously: Yes Recently seen / treated by doctor: Yes - Related Data Allergies/Adverse Reactions: No Known Allergies Allergy (Verified 06/29/16 09:06) Past Medical History - General Information source: Patient - Social History Smoking Status: Former Smoker Cigarette use (# per day): No Chew tobacco use (# tins/day): No Smoking Education Provided: No Frequency of alcohol use: None Drug Abuse: None Lives with: Family Family History: CAD - Past Medical History Cardiac Medical History: Reports: Hx Hypertension Pulmonary Medical History: Reports: Hx Pneumonia EENT Medical History: Reports: None Neurological Medical History: Reports: None Endocrine Medical History: Reports: None Renal/ Medical History: Reports: None, Other - Episodes of mastitis Malignancy Medical History: Reports: None GI Medical History: Reports: None Musculoskeltal Medical History: Reports None Skin Medical History: Reports Hx Cellulitis Psychiatric Medical History: Reports: Hx Depression - & anxiety Traumatic Medical History: Reports: None Infectious Medical History: Reports: None Past Surgical History: Reports: Hx Gynecologic Surgery - D&C 2014, Hx Oral Surgery - Immunizations Immunizations up to date: Yes Hx Diphtheria, Pertussis, Tetanus Vaccination: Yes Review of Systems - Review of Systems Constitutional: No symptoms reported EENT: No symptoms reported Cardiovascular: No symptoms reported Respiratory: No symptoms reported Gastrointestinal: No symptoms reported Genitourinary: No symptoms reported Female Genitourinary: Other - Right breast painful erythematous minimally hard warm to touch Musculoskeletal: No symptoms reported Skin: No symptoms reported Hematologic/Lymphatic: No symptoms reported Neurological/Psychological: No symptoms reported Physical Exam - Vital signs Vitals: Temp Pulse Resp BP Pulse Ox 99.8 F 121 H 14 118/67 96 06/29/16 08:51 06/29/16 08:51 06/29/16 08:51 06/29/16 08:51 06/29/16 08:51 Interpretation: Normal - Notes Notes: Right breast erythematous warm to touch tender to touch painful when breast- feeding. Temperature is 99.8 with an elevated pulse. - General General appearance: Appears well, Alert - HEENT Head: Normocephalic, Atraumatic Eyes: Normal Pupils: PERRL - Respiratory Respiratory status: No respiratory distress Chest status: Nontender Breath sounds: Normal Chest palpation: Normal - Cardiovascular Rhythm: Regular Heart sounds: Normal auscultation Murmur: No - Abdominal Inspection: Normal Distension: No distension Bowel sounds: Normal Tenderness: Nontender Organomegaly: No organomegaly - Back Back: Normal, Nontender - Extremities General upper extremity: Normal inspection, Nontender, Normal color, Normal ROM , Normal temperature General lower extremity: Normal inspection, Nontender, Normal color, Normal ROM , Normal temperature, Normal weight bearing. No: Ricky's sign - Neurological Neuro grossly intact: Yes Cognition: Normal Orientation: AAOx4 Wesly Coma Scale Eye Opening: Spontaneous Wesly Coma Scale Verbal: Oriented Wesly Coma Scale Motor: Obeys Commands Taylor Coma Scale Total: 15 Speech: Normal Motor strength normal: LUE, RUE, LLE, RLE Sensory: Normal - Psychological Associated symptoms: Normal affect, Normal mood - Skin Skin Temperature: Warm Skin Moisture: Dry Skin Color: Normal Course - Vital Signs Vital signs: Temp Pulse Resp BP Pulse Ox 99.8 F 121 H 14 118/67 96 06/29/16 08:51 06/29/16 08:51 06/29/16 08:51 06/29/16 08:51 06/29/16 08:51 Discharge - Discharge Clinical Impression: Mastitis in female Condition: Stable Disposition: HOME, SELF-CARE Additional Instructions: Mastitis (Breast Infection) You have an infection in your breast, called mastitis. This is due to bacteria invading the breast through the milk ducts. Mastitis can be serious, and must be treated carefully. Antibiotics are required. Usually, warm packs are recommended. Some improvement should be evident within 24 to 36 hours. If you're breast-feeding, you should continue to nurse the baby. The baby won't be harmed by the milk from the infected breast. If you stop nursing, the breast must be pumped. If milk builds up in the breast, the infection can dramatically worsen! Follow-up care is important to check for abscess (boil) formation or resistant infection. If you develop fever, chills, or if the area of infection is becoming rapidly more swollen or painful, call the doctor at once. Cephalexin The antibiotic you've been prescribed is a member of the cephalosporin class. This type of antibiotic covers a wide variety of infections, including those of the skin, lungs, and urinary tract. It's useful for staph infections. This antibiotic is slightly similar to the penicillin family. In rare cases , a person who is allergic to penicillin will also be allergic to this medication. If you have had a severe allergic reaction to penicillin, and have not taken this antibiotic since that time, notify your doctor. Antibiotics which cover many germs ("broad spectrum" antibiotics) are more likely to cause diarrhea or "yeast" infections. Women prone to vaginal yeast problems may suffer an attack after taking this antibiotic. In infants, oral thrush (white spots "stuck" on the cheek) or yeast diaper rash may result. See your doctor if these problems occur. Call at once if you develop itching, hives , shortness of breath, or lightheadedness. Ibuprofen Ibuprofen is an excellent, safe drug for pain control. In addition, it has potent antiinflammatory effects which are beneficial, especially in the treatment of injuries, arthritis, or tendonitis. It's best to take ibuprofen with food. Persons with ulcer disease or allergy to aspirin should notify their physician of this before taking ibuprofen. Take the medication exactly as prescribed. Don't take additional doses unless instructed to do so by your doctor. If you develop wheezing, shortness of breath, hives, faintness, stomach pain, vomiting, or dark black stools, return for re-evaluation at once. FOLLOW-UP CARE: If you have been referred to a physician for follow-up care, call the physician s office for an appointment as you were instructed or within the next two days. If you experience worsening or a significant change in your symptoms, notify the physician immediately or return to the Emergency Department at any time for re-evaluation. Prescriptions: Ibuprofen 600 mg PO Q8HP PRN #20 tablet PRN Reason: Cephalexin Monohydrate [Keflex 500 mg Capsule] 500 mg PO QID #40 capsule Referrals: ZACKARY BETH MD [Primary Care Provider] - Follow up as needed
[2016-06-29 09:54] VITALS: BP 129/69
== END 2016-06-29 09:52 | disposition home or self-care (01) ==
LOC: ER 08:49
DX: N61.0 Mastitis without abscess (principal); I10 Essential (primary) hypertension; Z87.891 Personal history of nicotine dependence
CPT/HCPCS: 99283; 87070; 87205; 87077; 87186; J3490

== ENCOUNTER 2016-10-25 23:07 | Emergency (ER) | payer MEDICAID ==
[2016-10-25 23:21] VITALS: BP 145/89
== END 2016-10-26 01:56 | disposition left against medical advice (07) ==
LOC: ER 23:07
DX: Z53.9 Procedure and treatment not carried out, unspecified reason (principal)

== ENCOUNTER → 2018-01-21 | Outpatient (CLI) | payer MEDICAID ==
[2018-01-21 10:33] LABS: ABSOLUTE EOSINOPHILS # (AUTO) 0.2 10^3/uL (0.0-0.6); ABSOLUTE LYMPHOCYTES (AUTO) 1.5 10^3/uL (0.5-4.7); ABSOLUTE MONOCYTES (AUTO) 0.6 10^3/uL (0.1-1.4); ABSOLUTE NEUT (AUTO) 4.7 10^3/uL (1.7-8.2); BASOPHILS % (AUTO) 0.6 % (0-2); EOSINOPHILS % (AUTO) 2.6 % (0-6); HEMATOCRIT 39.5 % (36.0-47.0); HEMOGLOBIN 13.4 g/dL (12.0-15.5); LYMPHOCYTES % (AUTO) 21.5 % (13-45); MEAN CORPUSCULAR HEMOGLOBIN 29.8 pg (27.0-33.4); MEAN CORPUSCULAR HGB CONC 34.1 g/dL (32.0-36.0); MEAN CORPUSCULAR VOLUME 88 fl (80-97); MONOCYTES % (AUTO) 8.5 % (3-13); PLATELET COUNT 217 10^3/uL (150-450); RED BLOOD COUNT 4.51 10^6/uL (3.72-5.28); RED CELL DISTRIBUTION WIDTH 13.4 % (11.5-14.0); SEGMENTED NEUTROPHILS % (AUTO) 66.8 % (42-78); TOTAL CELLS COUNTED % (AUTO) 100 %
[2018-01-21 10:55] LABS: ALANINE AMINOTRANSFERASE 11 U/L (9-52); ALBUMIN 3.9 g/dL (3.5-5.0); ALKALINE PHOSPHATASE 40 U/L (38-126); ANION GAP 6 (5-19); ASPARTATE AMINO TRANSFERASE 12 U/L (14-36); BILIRUBIN,DIRECT 0.2 mg/dL (0.0-0.4); BILIRUBIN,TOTAL 0.7 mg/dL (0.2-1.3); BLOOD UREA NITROGEN 11 mg/dL (7-20); CALCIUM 9.3 mg/dL (8.4-10.2); CARBON DIOXIDE 31 mmol/L (22-30); CHLORIDE 106 mmol/L (98-107); GLUCOSE 89 mg/dL (75-110); POTASSIUM 4.4 mmol/L (3.6-5.0); SODIUM 142.7 mmol/L (137-145); TOTAL PROTEIN 6.3 g/dL (6.3-8.2)
[2018-01-21 11:00] LABS: LITHIUM < 0.2 mEq/L (0.6-1.2)
== END ==
LOC: OD 09:18
PROVIDERS: ATTEND Nurse Practitioner Psychiatric/Mental Health
DX: F33.2 Major depressive disorder, recurrent severe without psychotic features (principal); Z79.899 Other long term (current) drug therapy
CPT/HCPCS: 36415; 80053; 80178; 84443; 85025

== ENCOUNTER → 2018-07-20 | Outpatient (CLI) | payer MEDICAID | LOC: LAB 16:58 | PROVIDERS: ATTEND Nurse Practitioner Family | DX: R30.0 Dysuria (principal); R82.71 Bacteriuria | CPT/HCPCS: 87086 ==

== ENCOUNTER 2018-07-21 17:42 | Emergency (ER) | payer MEDICAID ==
--- NOTE | 2018-07-21 18:45 | ER Document Report ---
HPI - HPI Patient complains to provider of: pain with void, or Jesse frequency Time Seen by Provider: 07/21/18 18:32 Onset: Other - 2 weeks Onset/Duration: Persistent Quality of pain: Burning Severity: Moderate Pain Level: 3 Context: Patient presents emergency department with complaints of urinary tract infection for the past 2 weeks. Patient reports she was evaluated and treated with Septra on July 07 for UTI. She reports 3 days later she was called in switch to Keflex. She reports she is still having symptoms. She obtained and brought a urine analysis for urine culture yesterday. Patient reports that she is having urinary frequency but never feels like she is emptying her bladder and burning with void. Patient reports symptoms started after she had sexual relations. She reports is only time she never went to the bathroom after having sex. She denies vaginal discharge. She denies vaginal sores. She denies vaginal swelling. She denies fever vomiting diarrhea denies abdominal pain.. Associated Symptoms: None Exacerbated by: Other - Voiding Relieved by: Denies Similar symptoms previously: Yes Recently seen / treated by doctor: Yes - REPRODUCTIVE Reproductive: DENIES: : - DERM Skin Color: Normal Past Medical History - General Information source: Patient Last Menstrual Period: 06/26/18 - Social History Smoking Status: Never Smoker Chew tobacco use (# tins/day): No Frequency of alcohol use: Heavy Drug Abuse: None Lives with: Family Family History: CAD Patient has suicidal ideation: No Patient has homicidal ideation: No - Past Medical History Cardiac Medical History: Reports: Hx Hypertension Denies: Hx Heart Attack Pulmonary Medical History: Reports: Hx Pneumonia Denies: Hx Asthma, Hx Bronchitis, Hx COPD Neurological Medical History: Denies: Hx Seizures Renal/ Medical History: Denies: Hx Peritoneal Dialysis Musculoskeletal Medical History: Denies Hx Arthritis Skin Medical History: Reports Hx Cellulitis Psychiatric Medical History: Reports: Hx Depression - & anxiety Past Surgical History: Reports: Hx Gynecologic Surgery - D&C 2013, Hx Oral Surgery - Immunizations Immunizations up to date: Yes Hx Diphtheria, Pertussis, Tetanus Vaccination: Yes Vertical Provider Document - CONSTITUTIONAL Agree With Documented VS: Yes Exam Limitations: No Limitations General Appearance: WD/WN, No Apparent Distress - INFECTION CONTROL TRAVEL OUTSIDE OF THE [place] IN LAST 30 DAYS: No - HEENT HEENT: Atraumatic, Normocephalic - NECK Neck: Supple - RESPIRATORY Respiratory: No Respiratory Distress - CARDIOVASCULAR Cardiovascular: Regular Rate - GI/ABDOMEN Gastrointestinal: Abdomen Soft, Abdomen Non-Tender - MUSCULOSKELETAL/EXTREMETIES Musculoskeletal/Extremeties: RAVI SIDHU - NEURO Level of Consciousness: Awake, Alert, Appropriate Motor/Sensory: No Motor Deficit - DERM Integumentary: Warm, Dry Course - Re-evaluation Re-evalutation: 07/21/18 18:44 Review of urine culture from July shows sensitivity to Macrobid. We will repeat urine plan on treating with Macrobid. Discussed this with patient she is in agreement. Recent urine culture is still pending. Preliminary shows no growth 07/21/18 19:17 UA with a trace of leukocytes. Pt was instructed on this. I informed her the macrobid may not work but will treat patient with Macrobid based on symptoms. Patient was instructed on Macrobid and instructed on the importance of follow-up with the Direct Care Specialist and for complete infirmary attendant exam. She verbalized understanding to all instructions. Dictation of this chart was performed using voice recognition software; therefore, there may be some unintended grammatical errors. - Vital Signs Vital signs: Temp Pulse Resp BP Pulse Ox 98.1 F 83 16 143/80 H 100 07/21/18 17:51 07/21/18 17:51 07/21/18 17:51 07/21/18 17:51 07/21/18 17:51 Discharge - Discharge Clinical Impression: UTI (urinary tract infection) Condition: Stable Disposition: HOME, SELF-CARE Instructions: Nitrofurantoin ([facility]), Urinary Tract Infection ([facility]) Additional Instructions: *You have been evaluated for pain while voiding, UTI *Take medication as prescribed *Push fluids *Follow up with your primary care provider in one week for recheck *Return to ED for worsening condition, changes, needs Prescriptions: Nitrofurantoin/Nitrofuran Mac [Macrobid 100 mg Capsule] 100 mg PO BID #20 capsule Referrals: MIHAI ANTONIO FNP-BC [NO LOCAL MD] - Follow up in 1 week
[2018-07-21 19:00] LABS: APPEARANCE,URINE SLIGHTLY-CLOUDY; BILIRUBIN,URINE NEGATIVE (NEGATIVE); COLOR,URINE YELLOW; GLUCOSE, URINE NEGATIVE (NEGATIVE); KETONES,URINE TRACE mg/dL (NEGATIVE); LEUKOCYTE ESTERASE,URINE NEGATIVE (NEGATIVE); NITRITE,URINE NEGATIVE (NEGATIVE); PROTEIN,URINE NEGATIVE (NEGATIVE); URINE SPECIFIC GRAVITY 1.024; UROBILINOGEN,URINE NEGATIVE mg/dL (<2.0)
[2018-07-21] MEDS ORDERED: NITROFURANTOIN MONOHYD/M-CRYST 100 MG CAPSULE PO ONE (19:19)
[2018-07-21 19:39] VITALS: BP 147/93
== END 2018-07-21 19:39 | disposition home or self-care (01) ==
LOC: ER 17:42
DX: N39.0 Urinary tract infection, site not specified (principal); I10 Essential (primary) hypertension
CPT/HCPCS: 99283; 87086; 81025; 81001; J3490; J8499

== ENCOUNTER → 2018-08-29 | Outpatient (CLI) | payer MEDICAID ==
[2018-08-29 11:31] LABS: ABSOLUTE EOSINOPHILS # (AUTO) 0.1 10^3/uL (0.0-0.6); ABSOLUTE LYMPHOCYTES (AUTO) 1.4 10^3/uL (0.5-4.7); ABSOLUTE MONOCYTES (AUTO) 0.4 10^3/uL (0.1-1.4); ABSOLUTE NEUT (AUTO) 2.6 10^3/uL (1.7-8.2); BASOPHILS % (AUTO) 0.6 % (0-2); EOSINOPHILS % (AUTO) 1.8 % (0-6); HEMATOCRIT 40.5 % (36.0-47.0); LYMPHOCYTES % (AUTO) 31.5 % (13-45); MEAN CORPUSCULAR HEMOGLOBIN 30.2 pg (27.0-33.4); MEAN CORPUSCULAR HGB CONC 34.5 g/dL (32.0-36.0); MEAN CORPUSCULAR VOLUME 87 fl (80-97); MONOCYTES % (AUTO) 8.3 % (3-13); PLATELET COUNT 212 10^3/uL (150-450); RED BLOOD COUNT 4.63 10^6/uL (3.72-5.28); RED CELL DISTRIBUTION WIDTH 13.2 % (11.5-14.0); SEGMENTED NEUTROPHILS % (AUTO) 57.8 % (42-78); TOTAL CELLS COUNTED % (AUTO) 100 %; WHITE BLOOD COUNT 4.5 10^3/uL (4.0-10.5)
[2018-08-29 11:58] LABS: ALANINE AMINOTRANSFERASE 77 U/L (9-52); ALBUMIN 4.4 g/dL (3.5-5.0); ALKALINE PHOSPHATASE 58 U/L (38-126); ANION GAP 7 (5-19); ASPARTATE AMINO TRANSFERASE 27 U/L (14-36); BILIRUBIN,DIRECT 0.2 mg/dL (0.0-0.4); BILIRUBIN,TOTAL 0.6 mg/dL (0.2-1.3); BLOOD UREA NITROGEN 14 mg/dL (7-20); CALCIUM 9.4 mg/dL (8.4-10.2); CARBON DIOXIDE 31 mmol/L (22-30); CHLORIDE 102 mmol/L (98-107); GLUCOSE 100 mg/dL (75-110); POTASSIUM 4.8 mmol/L (3.6-5.0); TOTAL PROTEIN 7.2 g/dL (6.3-8.2)
[2018-08-29 12:08] LABS: LITHIUM < 0.2 mEq/L (0.6-1.2)
== END ==
LOC: OD 10:06
PROVIDERS: ATTEND Nurse Practitioner Psychiatric/Mental Health
DX: F33.2 Major depressive disorder, recurrent severe without psychotic features (principal); Z79.899 Other long term (current) drug therapy
CPT/HCPCS: 36415; 80053; 80178; 84443; 85025

== ENCOUNTER 2019-09-15 12:12 | Outpatient (CLI) | payer MEDICAID ==
[2019-09-15 12:50] LABS: AMORPHOUS SEDIMENT,URINE TRACE /HPF; APPEARANCE,URINE SLIGHTLY-CLOUDY; BILIRUBIN,URINE NEGATIVE (NEGATIVE); COLOR,URINE YELLOW; GLUCOSE, URINE NEGATIVE (NEGATIVE); KETONES,URINE NEGATIVE (NEGATIVE); LEUKOCYTE ESTERASE,URINE NEGATIVE (NEGATIVE); NITRITE,URINE NEGATIVE (NEGATIVE); PROTEIN,URINE 30 mg/dL (NEGATIVE); URINE SPECIFIC GRAVITY 1.021; UROBILINOGEN,URINE NEGATIVE mg/dL (<2.0)
[2019-09-15 13:11] LABS: URINE AMPHETAMINES SCREEN NEGATIVE; URINE BARBITURATES SCREEN NEGATIVE; URINE BENZODIAZEPINES SCREEN NEGATIVE; URINE COCAINE SCREEN NEGATIVE; URINE MARIJUANA (THC) SCREEN NEGATIVE; URINE METHADONE SCREEN NEGATIVE; URINE PHENCYCLIDINE SCREEN NEGATIVE
[2019-09-15 13:40] LABS: HEMATOCRIT 32.7 % (36.0-47.0); HEMOGLOBIN 11.2 g/dL (12.0-15.5); MEAN CORPUSCULAR HEMOGLOBIN 29.2 pg (27.0-33.4); MEAN CORPUSCULAR HGB CONC 34.4 g/dL (32.0-36.0); MEAN CORPUSCULAR VOLUME 85 fl (80-97); PLATELET COUNT 170 10^3/uL (150-450); RED BLOOD COUNT 3.85 10^6/uL (3.72-5.28); RED CELL DISTRIBUTION WIDTH 13.7 % (11.5-14.0); WHITE BLOOD COUNT 8.6 10^3/uL (4.0-10.5)
[2019-09-15 14:00] LABS: UR PRO/CREAT RATIO RESULT 0.1 mg/mg (0.0-0.2); URINE CREATININE 195.9 mg/dL (16-327); URINE PROTEIN 25.7 mg/dL (<12)
[2019-09-15 14:01] LABS: ALBUMIN 3.1 g/dL (3.5-5.0); ALKALINE PHOSPHATASE 87 U/L (38-126); ASPARTATE AMINO TRANSFERASE 21 U/L (14-36); BILIRUBIN,TOTAL 0.3 mg/dL (0.2-1.3); BLOOD UREA NITROGEN 10 mg/dL (7-20); CALCIUM 9.4 mg/dL (8.4-10.2); CARBON DIOXIDE 26 mmol/L (22-30); CHLORIDE 105 mmol/L (98-107); GLUCOSE 76 mg/dL (75-110); POTASSIUM 4.3 mmol/L (3.6-5.0); TOTAL PROTEIN 5.8 g/dL (6.3-8.2); URIC ACID 5.5 mg/dL (2.5-6.2)
[2019-09-15 14:07] LABS: ANION GAP 4 (5-19)
== END 2019-09-15 14:48 | disposition home or self-care (01) ==
LOC: LC 12:12
PROVIDERS: ATTEND Obstetrics & Gynecology Gynecology
DX: O10.913 Unspecified pre-existing hypertension complicating pregnancy, third trimester (principal); Z3A.31 31 weeks gestation of pregnancy
CPT/HCPCS: 36415; 80053; 80307; 81001; 82570; 83615; 84156; 84550; 85027

== ENCOUNTER 2019-09-29 13:31 | Outpatient (CLI) | payer MEDICAID ==
[2019-09-29 14:09] LABS: HEMATOCRIT 35.2 % (36.0-47.0); HEMOGLOBIN 12.1 g/dL (12.0-15.5); MEAN CORPUSCULAR HEMOGLOBIN 28.8 pg (27.0-33.4); MEAN CORPUSCULAR HGB CONC 34.3 g/dL (32.0-36.0); MEAN CORPUSCULAR VOLUME 84 fl (80-97); PLATELET COUNT 197 10^3/uL (150-450); RED CELL DISTRIBUTION WIDTH 14.2 % (11.5-14.0); WHITE BLOOD COUNT 8.6 10^3/uL (4.0-10.5)
[2019-09-29 14:28] LABS: ALBUMIN 3.2 g/dL (3.5-5.0); ALKALINE PHOSPHATASE 109 U/L (38-126); ANION GAP 10 (5-19); ASPARTATE AMINO TRANSFERASE 20 U/L (14-36); BILIRUBIN,DIRECT 0.2 mg/dL (0.0-0.4); BILIRUBIN,TOTAL 0.4 mg/dL (0.2-1.3); BLOOD UREA NITROGEN 7 mg/dL (7-20); CALCIUM 8.8 mg/dL (8.4-10.2); CARBON DIOXIDE 20 mmol/L (22-30); CHLORIDE 106 mmol/L (98-107); GLUCOSE 92 mg/dL (75-110); POTASSIUM 4.8 mmol/L (3.6-5.0); TOTAL PROTEIN 5.3 g/dL (6.3-8.2); URIC ACID 5.4 mg/dL (2.5-6.2)
--- NOTE | 2019-09-29 19:11 | Non Stress Test Report ---
Non Stress Test Datetime Report Generated by CPN: 09/29/2019 19:10 DEMOGRAPHIC Test Number: 1 EGA NST: 33.2 INDICATION Indication for Study (NST) Other: superimposed Preeclampsia at 33+2 weeks MONITORING Monitor Explained: Monitor Explained; Test Explained; Patient Verbalized Understanding Time on Monitor: 09/29/2019 14:00 Time off Monitor: 09/29/2019 14:30 NST Duration: 30 NST INTERVENTIONS NST Interventions: PO Hydration Physician Notified NST: Dr Bennett BABY A: [id number] BABY A Movement : Present Contraction Frequency : 0 FHR Baseline : 130 Accelerations : 15X15 Decelerations : None Variability : Moderate 6-25bpm NST Review: Meets Criteria for Reactive NST NST Review and Verified By : Sautry NST Results: Reactive NST REPORT Report Trigger: Send Report
== END 2019-09-29 14:55 | disposition home or self-care (01) ==
LOC: LC 13:31
PROVIDERS: ATTEND Obstetrics & Gynecology
DX: O14.93 Unspecified pre-eclampsia, third trimester (principal); Z3A.33 33 weeks gestation of pregnancy
CPT/HCPCS: 36415; 59025; 80053; 84550; 85027

== ENCOUNTER 2019-10-02 10:34 | Outpatient (CLI) | payer MEDICAID ==
[2019-10-02] MEDS ORDERED: BETAMET ACET/BETAMET NA INJ 6 MG/1 ML IM PRN (10:41)
[2019-10-02] MEDS ORDERED: BETAMET ACET/BETAMET NA INJ 6 MG/1 ML ONE (10:59)
--- NOTE | 2019-10-02 11:37 | Non Stress Test Report ---
Non Stress Test Datetime Report Generated by CPN: 10/02/2019 11:36 DEMOGRAPHIC EGA NST: 33.5 INDICATION Indication for Study (NST) Other: provider orders VITAL SIGNS Temperature - NST: 98.2 Pulse - NST: 93 RESP - NST: 17 NBPSYS NST: 132 NBPDIA NST: 71 MONITORING Monitor Explained: Monitor Explained; Test Explained; Patient Verbalized Understanding Time on Monitor: 10/02/2019 10:51 Time off Monitor: 10/02/2019 11:30 NST Duration: 39 NST INTERVENTIONS NST Interventions: PO Hydration; Reposition Patient Physician Notified NST: Dr. Alarcon BABY A: [id number] BABY A Movement : Present Contraction Frequency : none FHR Baseline : 135 Accelerations : 15X15 Decelerations : None Variability : Moderate 6-25bpm NST Review: Meets Criteria for Reactive NST NST Review and Verified By : Cedric Arellano RN NST Results: Reactive NST REPORT Report Trigger: Send Report
== END 2019-10-02 11:35 | disposition home or self-care (01) ==
LOC: LC 10:34
PROVIDERS: ATTEND Obstetrics & Gynecology
DX: O11.3 Pre-existing hypertension with pre-eclampsia, third trimester (principal); O10.913 Unspecified pre-existing hypertension complicating pregnancy, third trimester; O99.283 Endocrine, nutritional and metabolic diseases complicating pregnancy, third trimester; E03.9 Hypothyroidism, unspecified; Z3A.33 33 weeks gestation of pregnancy; Z79.82 Long term (current) use of aspirin; Z79.899 Other long term (current) drug therapy
CPT/HCPCS: 59025; J0702

== ENCOUNTER 2019-10-03 11:01 | Inpatient (IN) | payer MEDICAID ==
[2019-10-03] MEDS ORDERED: BETAMET ACET/BETAMET NA INJ 6 MG/1 ML IM ONE (11:08)
[2019-10-03] MEDS ORDERED: BETAMET ACET/BETAMET NA INJ 6 MG/1 ML ONE (11:08)
[2019-10-03 12:34] LABS: ABSOLUTE LYMPHOCYTES (AUTO) 1.5 10^3/uL (0.5-4.7); ABSOLUTE MONOCYTES (AUTO) 1.4 10^3/uL (0.1-1.4); ABSOLUTE NEUT (AUTO) 12.2 10^3/uL (1.7-8.2); BASOPHILS % (AUTO) 0.2 % (0-2); HEMATOCRIT 31.4 % (36.0-47.0); HEMOGLOBIN 10.7 g/dL (12.0-15.5); LYMPHOCYTES % (AUTO) 10.2 % (13-45); MEAN CORPUSCULAR HEMOGLOBIN 28.5 pg (27.0-33.4); MEAN CORPUSCULAR VOLUME 84 fl (80-97); MONOCYTES % (AUTO) 9.4 % (3-13); PLATELET COUNT 167 10^3/uL (150-450); RED BLOOD COUNT 3.75 10^6/uL (3.72-5.28); RED CELL DISTRIBUTION WIDTH 14.1 % (11.5-14.0); SEGMENTED NEUTROPHILS % (AUTO) 80.2 % (42-78); TOTAL CELLS COUNTED % (AUTO) 100 %; WHITE BLOOD COUNT 15.2 10^3/uL (4.0-10.5)
[2019-10-03 12:57] LABS: URINE AMPHETAMINES SCREEN NEGATIVE; URINE BARBITURATES SCREEN NEGATIVE; URINE BENZODIAZEPINES SCREEN NEGATIVE; URINE COCAINE SCREEN NEGATIVE; URINE MARIJUANA (THC) SCREEN NEGATIVE; URINE METHADONE SCREEN NEGATIVE; URINE PHENCYCLIDINE SCREEN NEGATIVE
[2019-10-03 13:59] LABS: CHLAM PCR NOT DETECTED (NOT DETECT)
[2019-10-03] MEDS ORDERED: LABETALOL HCL PO SCH (14:15)
[2019-10-03] MEDS ORDERED: LABETALOL HCL 200 MG TABLET ONE ×2 (14:33→21:53)
[2019-10-03] MEDS: LABETALOL HCL 200 MG TABLET PO SCH ×2 (14:49→22:04)
[2019-10-03] MEDS ORDERED: HYDRALAZINE HCL INJ/PF 20 MG/1 ML SDV IV ONE (18:20)
[2019-10-03] MEDS ORDERED: HYDRALAZINE HCL INJ/PF 20 MG/1 ML SDV ONE (18:26)
[2019-10-03] MEDS ORDERED: PENICILLIN G POTASSIUM 5,000,000 UNIT in DEXTROSE 5%-WATER 100 ML IV ONE (18:36)
[2019-10-03] MEDS ORDERED: RINGERS SOLUTION,LACTATED 1,000 ML IV ONE (18:36)
[2019-10-03] MEDS ORDERED: RINGERS SOLUTION,LACTATED 1,000 ML IV PRN (18:36)
[2019-10-03] MEDS ORDERED: PENICILLIN G-K 5 MILLION UNIT VIAL ONE (18:41)
--- NOTE | 2019-10-03 19:07 | Admission Physical ---
Datetime Report Generated by CPN: 10/03/2019 19:07 CURRENT ADMISSION Chief Complaint: Signs/Symptoms Gestational HTN Indication for Induction: Chronic Primary/Essential HTN; Eclampsia - Severe Admit Impression : , Intrauterine Admit Plan: Admit to Unit; Initiate Labor Induction Protocol ALLERGIES Medication Allergies: No Medication Allergies: No Known Allergies (10/03/2019) Latex: No Latex Allergies Food Allergies: none Environmental Allergies: none OBSTETRICAL HISTORY EDC: 11/15/2019 00:00 : 8 Para: 5 Term: 4 : 1 SAB: 2 IAB: 0 Ectopic: 0 Livin Cesareans: 0 VBACs: 0 Multiple Births: 0 Gestational Diabetes: No Rh Sensitization: No Incompetent Cervix: No GISELLE: No Infertility: No ART Treatment: No Uterine Anomaly: No IUGR: No Hx Previous C/S: No Macrosomia: No Hx Loss/Stillborn: No PIH: Yes Hx : No Placenta Previa/Abruption: No Depression/PP Depression: Yes PTL/PROM: No Post Hemorrhage: Yes Obstetrical History Comments: G1: 2008 38 wks, , 7lbs 14 oz male, pre-e G2: 2009, 37 wks, , 7lbs 11 oz male, pre-e, baby passed from SIDS @ 8 wks G3 2011, 37 wks, , 7lbs 4 oz, male, pre-e G4: 2013, 4-5 wks SAB G5: 2014, 11 wks, SAB, D_C G6: 2014, 39.2, vaginal, 7lbs 10 oz male G7: 2016, 36.1, vaginal, 7lbs 1 oz female, GHTN, pre-e, eclampsia G8: current SEE RECORDS Alcohol: No Marijuana : No Cocaine: No Other Illicit Drugs: No Cigarettes: Former Smoker. [id number] MEDICAL HISTORY Diabetes: No Blood Transfusion: No Pulmonary Disease (Asthma, TB): No Breast Disease: No Hypertension: Yes Hydrodynamics Teacher Surgery: Yes Heart Disease: No Hosp/Surgery: Yes Autoimmune Disorder: No Anesthetic Complications: No Kidney Disease: No Abnormal Pap Smear: No Neuro/Epilepsy: No Psychiatric Disorders: Yes Other Medical Diseases: No Hepatitis/Liver Disease: No Significant Family History: No Varicosities/Phlebitis: No Trauma/Violence : No Thyroid Dysfunction: Yes Medical History Comments: GERD, hypothyroidism, depression, anxiety, pre-eclampsia, unspecified essential hypertension, bulemia, D_C INFECTIOUS HISTORY Gonorrhea: No Genital Herpes: No Chlamydia: No Tuberculosis: No Syphilis: No Hepatitis: No HIV/AIDS Exposure: No Rash or Viral Illness: No HPV: No PHYSICAL EXAM General: Normal HEENT: Normal Neurologic: Normal Thyroid: Deferred Heart: Normal Lungs: Normal Breast: Deferred Back: Normal Abdomen: Normal Genitourinary Exam: Normal Extremities: Normal DTRs: Normal Pelvic Type: Adequate Vital Signs: Reviewed VAGINAL EXAM Dilatation: 1 Effacement: 50 Station: -3 Contraction Comments: none MEMBRANES Membranes: Intact FETUS A EGA: 33.6 Monitoring: External US FHR- Baseline: 125 Variability: Moderate 6-25bpm Accelerations: 15X15 Decelerations: None FHR Category: Category I Presentation: Vertex Admit Comment: 33yo at 33+6ega presents for 2nd BMZ shot due to CHTN with superimpsed PreE. 24 hr UTP 2700mg. H/o PreE x 5. Pt denies WARREN. However, having severe range BPs with known superimposed preE. Prior 24 hr UTP was 383mg on 09/15. She is currently on Labetolol 300mg TID and Amlodiipine 5mg daily. h/o Depression on pristiq. Hypthyroidism. 2010 baby passed from SIDS. h/o PPH. Steroid complete 29wks then now received rescue course. Admit for IOL due to CHTN with superimposed preE. PLANS FOR LABOR AND DELIVERY Labor and Delivery: None Pain Management: Natural Feeding Preference: Breast Benefit of Breast Feed Discussed: Yes Circumcision: No INFORMED CONSENT Informed Consent Obtained: Vaginal Delivery; Risks, Benefits and Alternatives Discussed Signature: with User ID: [email or web address]
[2019-10-03 19:51] LABS: ABSOLUTE LYMPHOCYTES (AUTO) 0.9 10^3/uL (0.5-4.7); ABSOLUTE MONOCYTES (AUTO) 0.8 10^3/uL (0.1-1.4); ABSOLUTE NEUT (AUTO) 12.6 10^3/uL (1.7-8.2); BASOPHILS % (AUTO) 0.1 % (0-2); HEMATOCRIT 30.4 % (36.0-47.0); HEMOGLOBIN 10.2 g/dL (12.0-15.5); LYMPHOCYTES % (AUTO) 6.3 % (13-45); MEAN CORPUSCULAR HEMOGLOBIN 28.3 pg (27.0-33.4); MEAN CORPUSCULAR HGB CONC 33.7 g/dL (32.0-36.0); MEAN CORPUSCULAR VOLUME 84 fl (80-97); MONOCYTES % (AUTO) 5.6 % (3-13); PLATELET COUNT 173 10^3/uL (150-450); RED BLOOD COUNT 3.61 10^6/uL (3.72-5.28); RED CELL DISTRIBUTION WIDTH 14.1 % (11.5-14.0); TOTAL CELLS COUNTED % (AUTO) 100 %; WHITE BLOOD COUNT 14.3 10^3/uL (4.0-10.5)
[2019-10-03] MEDS ORDERED: MISOPROSTOL 0.1 MG TABLET PV ONE (20:00)
[2019-10-03 20:08] LABS: ALBUMIN 3.1 g/dL (3.5-5.0); ALKALINE PHOSPHATASE 104 U/L (38-126); ANION GAP 6 (5-19); ASPARTATE AMINO TRANSFERASE 26 U/L (14-36); BILIRUBIN,DIRECT 0.2 mg/dL (0.0-0.4); BILIRUBIN,TOTAL 0.2 mg/dL (0.2-1.3); BLOOD UREA NITROGEN 12 mg/dL (7-20); CALCIUM 8.5 mg/dL (8.4-10.2); CARBON DIOXIDE 23 mmol/L (22-30); CHLORIDE 107 mmol/L (98-107); GLUCOSE 140 mg/dL (75-110); POTASSIUM 4.5 mmol/L (3.6-5.0); TOTAL PROTEIN 5.7 g/dL (6.3-8.2); URIC ACID 5.9 mg/dL (2.5-6.2)
[2019-10-03] MEDS ORDERED: MISOPROSTOL 0.1 MG TABLET ONE (20:16)
[2019-10-03] MEDS: BUPROPION HCL 100 MG TABLET PO SCH (22:04)
[2019-10-03] MEDS: PENICILLIN G POTASSIUM 2,500,000 UNIT in DEXTROSE 5%-WATER 50 ML IV SCH (22:47)
[2019-10-04] MEDS ORDERED: ACETAMINOPHEN 325 MG TABLET PO ONE (00:16)
[2019-10-04] MEDS ORDERED: ACETAMINOPHEN 325 MG TABLET ONE (00:18)
[2019-10-04] MEDS ORDERED: MISOPROSTOL 0.1 MG TABLET PV ONE ×2 (00:48→05:00)
[2019-10-04] MEDS ORDERED: MISOPROSTOL 0.1 MG TABLET ONE (01:00)
[2019-10-04] MEDS: PENICILLIN G POTASSIUM 2,500,000 UNIT in DEXTROSE 5%-WATER 50 ML IV SCH ×5 (02:19→18:27)
[2019-10-04] MEDS ORDERED: OXYTOCIN/0.9 % SODIUM CHLORIDE 30 UNIT/500 ML RTUINJ ONE (03:46)
[2019-10-04] MEDS ORDERED: MISOPROSTOL 0.2 MG TABLET ONE (03:46)
[2019-10-04] MEDS ORDERED: LIDOCAINE 1% INJ-PF (10 MG/ML) 30 ML SDV ONE (03:46)
[2019-10-04] MEDS ORDERED: OXYTOCIN 10 UNIT/ML VIAL ONE (03:46)
[2019-10-04] MEDS ORDERED: LABETALOL HCL 200 MG TABLET ONE ×3 (06:07→21:53)
[2019-10-04] MEDS: LEVOTHYROXINE SODIUM 0.112 MG TABLET PO SCH (06:22)
[2019-10-04] MEDS: BUPROPION HCL 100 MG TABLET PO SCH ×3 (06:22→21:55)
[2019-10-04] MEDS: LABETALOL HCL 200 MG TABLET PO SCH ×3 (06:23→21:55)
[2019-10-04] MEDS ORDERED: OXYTOCIN/0.9 % SODIUM CHLORIDE 30 UNIT/500 ML RTUINJ IV PRN ×2 (06:49→19:24)
[2019-10-04] MEDS ORDERED: (PENDING PHARMACY ID) (Bupropion Hcl [Bupropion Xl] 300 MG) PO SCH (10:00)
[2019-10-04] MEDS ORDERED: PRENATAL VITAMIN W DHA CAPSULE PO SCH (10:00)
[2019-10-04] MEDS ORDERED: IRON FUM PO SCH (10:00)
[2019-10-04] MEDS ORDERED: [UNRECOGNIZED DRUG - OTHER] PO SCH (10:00)
[2019-10-04] MEDS ORDERED: PRENATAL PO SCH (10:00)
[2019-10-04] MEDS ORDERED: BUPROPION HCL PO SCH (10:00)
[2019-10-04] MEDS ORDERED: FOLIC PO SCH (10:00)
[2019-10-04] MEDS ORDERED: DHA PO SCH (10:00)
[2019-10-04] MEDS ORDERED: PRENATAL VITAMIN W DHA CAPSULE PO ONE (10:22)
[2019-10-04] MEDS ORDERED: ASPIRIN 81 MG TABLET, CHEWABLE ONE (10:22)
[2019-10-04] MEDS ORDERED: PENICILLIN G-K 5 MILLION UNIT VIAL ONE (10:25)
[2019-10-04] MEDS: AMLODIPINE BESYLATE 5 MG TABLET PO SCH (10:29)
[2019-10-04] MEDS: ASPIRIN 81 MG TABLET, CHEWABLE PO SCH (10:30)
[2019-10-04] MEDS ORDERED: NALBUPHINE HCL INJ 10 MG/1 ML AMPULE INJ ONE (17:46)
[2019-10-04] MEDS ORDERED: PROMETHAZINE HCL INJ 25 MG/1 ML VIAL IV ONE (17:46)
[2019-10-04] MEDS ORDERED: NALBUPHINE HCL INJ 10 MG/1 ML AMPULE ONE (17:49)
[2019-10-04] MEDS ORDERED: PROMETHAZINE HCL INJ 25 MG/1 ML VIAL ONE (17:49)
[2019-10-04] MEDS ORDERED: MAGNESIUM SULFATE 4 GM/100 ML RTUPB IV ONE ×2 (19:21→19:22)
[2019-10-04] MEDS ORDERED: MAGNESIUM SULFATE 20 GM/500 ML RTUINJ IV ONE (19:22)
[2019-10-04] MEDS ORDERED: GLYCERIN/WITCH HAZEL LEAF 1 EACH MED..WIPE TP PRN (19:24)
[2019-10-04] MEDS ORDERED: NA PHOS,M-B/NA PHOS,DI-BA (ADULT) 133 ML ENEMA PR PRN (19:24)
[2019-10-04] MEDS ORDERED: MEASLES,MUMPS&RUBELLA VACC/PF 0.5 ML VIAL SUBCUT PRN (19:24)
[2019-10-04] MEDS ORDERED: DIBUCAINE 1% OINTMENT 28 GM TP PRN (19:24)
[2019-10-04] MEDS ORDERED: DIPH/PERTUSS(ACELL)/TETANUS VAC/PF 0.5 ML SYR (>=10YO) IM PRN (19:24)
[2019-10-04] MEDS ORDERED: MAGNESIUM HYDROXIDE SUSP 30 ML UDCUP PO PRN (19:24)
[2019-10-04] MEDS ORDERED: PROMETHAZINE HCL 25 MG SUPP.RECT PR PRN (19:24)
[2019-10-04] MEDS ORDERED: PROMETHAZINE HCL 25 MG TABLET PO PRN (19:24)
[2019-10-04] MEDS ORDERED: BENZOCAINE/MENTHOL AEROSOL SPRAY 56 ML TOP PRN (19:24)
[2019-10-04] MEDS ORDERED: ZOLPIDEM TARTRATE 5 MG TABLET PO PRN (19:24)
[2019-10-04] MEDS ORDERED: ACETAMINOPHEN 650 MG SUPP.RECT PR PRN (19:24)
[2019-10-04] MEDS ORDERED: PROMETHAZINE HCL INJ 25 MG/1 ML VIAL IV PRN (19:24)
[2019-10-04] MEDS ORDERED: DIPHENHYDRAMINE HCL 25 MG CAPSULE PO PRN (19:24)
[2019-10-04] MEDS ORDERED: ACETAMINOPHEN WITH CODEINE #3 TABLET PO PRN ×2 (19:24)
[2019-10-04] MEDS ORDERED: PSEUDOEPHEDRINE HCL 30 MG TABLET PO PRN (19:24)
[2019-10-04] MEDS: MAGNESIUM SULFATE 20 GM/500 ML RTUINJ IV PRN (19:58)
[2019-10-04] MEDS ORDERED: IBUPROFEN 800 MG TABLET ONE (21:53)
[2019-10-04] MEDS ORDERED: FAMOTIDINE 20 MG TABLET ONE (21:53)
[2019-10-04] MEDS: FAMOTIDINE 20 MG TABLET PO SCH (21:54)
[2019-10-04] MEDS: IBUPROFEN 800 MG TABLET PO SCH (21:54)
[2019-10-04] MEDS ORDERED: HYDRALAZINE HCL INJ/PF 20 MG/1 ML SDV IV ONE (22:25)
[2019-10-04] MEDS ORDERED: HYDRALAZINE HCL INJ/PF 20 MG/1 ML SDV ONE (22:27)
[2019-10-05] MEDS ORDERED: HYDRALAZINE HCL INJ/PF 20 MG/1 ML SDV IV ONE ×2 (00:10→06:17)
[2019-10-05] MEDS ORDERED: MAGNESIUM SULFATE 20 GM/500 ML RTUINJ IV ONE (05:04)
[2019-10-05] MEDS ORDERED: IBUPROFEN 800 MG TABLET ONE ×2 (05:19→09:25)
[2019-10-05] MEDS ORDERED: LABETALOL HCL 200 MG TABLET ONE (05:20)
[2019-10-05] MEDS: MAGNESIUM SULFATE 20 GM/500 ML RTUINJ IV PRN (05:26)
[2019-10-05] MEDS: IBUPROFEN 800 MG TABLET PO SCH ×3 (05:27→22:30)
[2019-10-05] MEDS: LEVOTHYROXINE SODIUM 0.112 MG TABLET PO SCH (05:27)
[2019-10-05] MEDS: LABETALOL HCL 200 MG TABLET PO SCH ×3 (05:27→22:29)
[2019-10-05] MEDS: BUPROPION HCL 100 MG TABLET PO SCH ×3 (05:27→22:29)
--- NOTE | 2019-10-05 05:48 | Delivery Summary ---
Del Sum A-C Datetime Report Generated by CPN: 10/05/2019 05:47 DELIVERY PERSONNEL DELIVERY PERSONNEL: [id number] Delivery Doctor:: Beti Bennett MD Labor and Delivery Nurse:: Lupe Benoit RNbass mechanism maker Nurse:: Elida Perez RN Nursery Nurse:: Katie Mackenzie RN Coast[employer] Tug Mate/SPRING FORMER: Saida Vazquez, ST MATERNAL INFORMATION Delivery Anesthesia: None Medications After Delivery: Pitocin 30 Units in 500ml NS/D5W Estimated Blood Loss (ml): 250 Delivery QBL: 250 Maternal Complications: Other Complication Details: delivery, preeclampsia LABOR SUMMARY EDC: 11/15/2019 00:00 No. Babies in Womb: 1 Attempted: No Labor Anesthesia: IV Sedation LABOR INFORMATION Reason for Induction: Pre-Eclampsia Onset of Labor: 10/04/2019 14:08 Cervical Ripening Agents: Cytotec @; Other Other Ripening Agents: cooks cath Oxytocin: Induction Group B Beta Strep: Unknown Antibiotics # of Doses: 7 Antibiotics Time of Last Dose: 10/04/2019 18:27 Name of Antibiotic Given: PCN Steroids Given: Full Course; > 24 Hours before Delivery Reason Steroids Not Administered: Not Applicable MEMBRANES Membranes Rupture Method: Artificial Rupture of Membranes: 10/04/2019 15:25 Length of Rupture (hr): 3.73 Amniotic Fluid Color: Clear Amniotic Fluid Amount: Small Amniotic Fluid Odor: Normal STAGES OF LABOR Stage 3 hr: 0 Stage 3 min: 4 Total Time in Labor hr: 5 Total Time in Labor min: 5 VAGINAL DELIVERY Episiotomy: None Laceration #1: None Laceration Extension #1: N/A Laceration Repair: Not Applicable Sponge Count Correct: Yes Sharps Count Correct: Yes CSECTION DELIVERY Primary Indication: N/A Secondary Indication: N/A CSection Incidence: N/A Labor: N/A Elective: N/A CSection Incision: N/A BABY A INFORMATION Infant Delivery Date/Time: 10/04/2019 19:09 Method of Delivery: Vaginal Nurse Controlled Delivery: No Born in Route : No : N/A Forceps: N/A Vacuum Extraction: N/A Shoulder Dystocia : No PRESENTATION/POSITION BABY A Presentation: Cephalic Cephalic Presentation: Vertex Vertex Position: oa Breech Presentation: N/A PLACENTA INFORMATION BABY A Placenta Delivery Time : 10/04/2019 19:13 Placenta Method of Delivery: Spontaneous Placenta Status: Delivered SCORES BABY A Heart Rate 1 min: >100 bpm Resp Effort 1 min: Good Cry Reflex Irritability 1 min: Cough or Sneeze or Pulls Away Muscle Tone 1 min: Active Motion Color 1 min: Blue/Pale SCORE 1 MIN: 8 Heart Rate 5 min: >100 bpm Resp Effort 5 min: Good Cry Reflex Irritability 5 min: Cough or Sneeze or Pulls Away Muscle Tone 5 min: Active Motion Color 5 min: Body [place], Extremities Blue SCORE 5 MIN: 9 INFANT INFORMATION BABY A Gestational Age at Delivery: 34.0 Gestational Status: Late - 34- 36.6 Weeks Infant Outcome : Liveborn Infant Condition : Stable Sex: Male IDENTIFICATION BABY A Verification Date/Time: 10/04/2019 20:12 ID Band Number: [id number] Mother's Name Verified: Yes RN Verifying Infant: Leo UriasReta FIELD Additional Verifying Personnel: Michael Mobley RN WEIGHT/LENGTH BABY A Birthweight (gm): 2691 Infant Weight (lb): 5 Weight (oz): 15 Length (in): 17.00 Infant Length (cm): 43.18 CORD INFORMATION BABY A No. Cord Vessels: 3 Nuchal Cord : N/A Cord Blood Taken: N/A Suction: Mouth ASSESSMENT BABY A Infant Complications: None Physical Findings at Delivery: Within Normal Limits Respirations: Grunting Skin to Skin: Yes Skin to Skin Time (min): 5 Surfacing Machine Operator/ALS Called : Yes Care By: nursery staff Transferred To: NICU BABY B INFORMATION : N/A SIGNATURES Signature: with User ID: Luna
--- NOTE | 2019-10-05 05:48 | Birth Certificate Data ---
Cert Data Datetime Report Generated by CPN: 10/05/2019 05:47 CERTIFICATE DATA 47a. Care: Yes (09/15/2019 12:20:ADELA Valdovinos) 47b. Date of First Visit: 04/23/2019 00:00 (09/15/2019 12:20:Patricia Levin RN) 47c. Date of Last Visit: 09/25/2019 00:00 (09/15/2019 12:20:Lupe Benoit RN) 47d. Number of Visits: 11 (09/15/2019 12:20:Lupe Benoit RN) 48a. Number of Prev Live Births: 4 (09/15/2019 12:20:Patricia Levin RN) 48b. Now Livin (09/15/2019 12:20:Orly Valle RN) 48c. Live Births Now : 0 (09/15/2019 12:20:QS system process) 48d. Date of Last Live : 03/14/2016 00:00 (09/15/2019 12:20:Patricia Levin RN) 48e. Losses: 2 (09/15/2019 12:20:Patricia Levin RN) RISK FACTORS IN THIS 49a. Diabetes: No (09/15/2019 12:20:Elida Perez RN) 49b. Hypertension: Yes (09/15/2019 12:20:Elida Perez RN) Type of Hypertension: Chronic (09/15/2019 12:20:Patricia Levin RN) 49c. Previous Births: 1 (09/15/2019 12:20:Orly Valle RN) 49d. Stillborns: No (09/15/2019 12:20:Elida Perez RN) 49d. IUGR: No (09/15/2019 12:20:Elida Perez RN) 49e. Infertility Treatment: No (09/15/2019 12:20:Elida Perez RN) 49f. Previous Cesareans: 0 (09/15/2019 12:20:aPtricia Levin RN) Mother's Height 50b. Height Inches: 70 (09/15/2019 12:28:QS system process) Mother's Weight 51a. Pre- Weight (lbs): 231 (09/15/2019 12:20:Patricia Levin RN) 51b. Weight at Delivery (lbs): 282 (10/03/2019 17:26:QS system process) 52. Dt Last Normal Menses Began: 02/08/2019 00:00 (09/15/2019 12:20:Patricia Levin RN) Infections Present/Treated 53a. Gonorrhea: No (09/15/2019 12:20:Elida Perez RN) Results this Hospital Visit : Negative (09/15/2019 12:20:Elida Perez RN) 53b. Syphilis: No (09/15/2019 12:20:Elida Perez RN) 53c. Chlamydia: No (09/15/2019 12:20:Elida Perez RN) Results this Hospital Visit: Negative (09/15/2019 12:20:Elida Perez RN) 53d. Hepatitis B: No (09/15/2019 12:20:Elida Perez RN) Results this Hospital Visit: Negative (09/15/2019 12:20:Lupe Benoit RN) 53e. Hepatitis C: Negative (09/15/2019 12:20:Lupe Benoit RN) 53h. Mother Tested for HBsAG: Yes (09/15/2019 12:20:Lupe Benoit RN) 53i. Date Tested: 04/09/2019 00:00 (09/15/2019 12:20:Lupe Benoit RN) 53j. Test Result: Negative (09/15/2019 12:20:Lupe Benoit RN) Obstetric Procedures 54a, b, c. Obstetric Procedures: Ultrasound (09/15/2019 12:20:Lupe Benoit RN) Onset of Labor 56a. PROM >12 Hrs: 3.73 (10/04/2019 15:25:QS system process) 56b. Precipitous Labor <3 Hrs: 5 (09/15/2019 12:20:QS system process) 56c. Prolonged Labor > 20 Hrs: 5 (09/15/2019 12:20:QS system process) 57a. Induction of Labor: Induction (09/15/2019 12:20:Lupe Benoit RN) 57a. Induction of Labor: Cytotec @; Other (10/04/2019 01:00:Lupe Benoit RN) 57a. Induction of Labor: cooks cath (09/15/2019 12:20:Lupe Benoit RN) 57c. Non-Vertex Presentation A: Vertex (09/15/2019 12:20:Margie Randle RN) 57d. Steroids - Lung Mat: Full Course; > 24 Hours before Delivery (09/15/2019 12:20:Margie Randle RN) 57d. Steroids - Lung Mat: Celestone 12mg IM - Dose 1 (10/02/2019 11:00:Antonieta Winters RN) 57d. Steroids - Lung Mat: Not Applicable (09/15/2019 12:20:Lupe Benoit RN) 57e. Antibiotics During Labor: 10/04/2019 18:27 (09/15/2019 12:20:Christiana Mobley RN) 57f. Mat [place] or Temp >100.4: 98.7 (09/15/2019 12:20:Elida Perez RN) 57g. Moderate/Heavy Meconium: Clear (10/04/2019 15:25:Lupe Benoit RN) 57h. Intolerance of Labor: N/A (09/15/2019 12:20:Margie Randle RN) : N/A (09/15/2019 12:20:Margie Randle RN) 57i. Epidural/Spinal Anesthesia: IV Sedation (09/15/2019 12:20:Margie Randle RN) Method of Delivery 58a. Forceps - Unsuccessful A: N/A (09/15/2019 12:20:Margie Randle RN) 58b. Vacuum - Unsuccessful A: N/A (09/15/2019 12:20:Margie Randle RN) 58c. Presentation at 58c. Presentation at - A : Vertex (09/15/2019 12:20:Margie Randle RN) 58c. Presentation at - A : N/A (09/15/2019 12:20:Margie Randle RN) 58c. Presentation at - A : Cephalic (10/04/2019 08:11:Lupe Benoit RN) Final Route and Method of Del 58d. Baby A Route/Delivery: Vaginal (10/04/2019 19:09:Lupe Benoit RN) 58e. Trial of Labor Attempted: No (09/15/2019 12:20:Margie Randle RN) 58e. Trial of Labor Attempted A: N/A (09/15/2019 12:20:Margie Randle RN) 58e. Trial of Labor Attempted B: N/A (09/15/2019 12:20:Margie Randle RN) Maternal Morbidity 59b. 3rd or 4th Degree Lacs: None (09/15/2019 12:20:Margie Randle RN) Birthweight Baby A: 2691 (09/15/2019 12:20:Maru Hesham, RN) 60a. Pounds : 5 (09/15/2019 12:20:QS system process) 60b. Ounces: 15 (09/15/2019 12:20:QS system process) 61. GA at Delivery Baby A: 34.0 (09/15/2019 12:20:Margie Randle RN) : Late - 34- 36.6 Weeks (09/15/2019 12:20:QS system process) 62a. 5 Minute Baby A: 9 (09/15/2019 12:20:QS system process)
[2019-10-05] MEDS ORDERED: HYDRALAZINE HCL INJ/PF 20 MG/1 ML SDV ONE (06:17)
[2019-10-05 06:42] LABS: HEMATOCRIT 28.5 % (36.0-47.0); HEMOGLOBIN 9.8 g/dL (12.0-15.5); MEAN CORPUSCULAR HEMOGLOBIN 28.7 pg (27.0-33.4); MEAN CORPUSCULAR HGB CONC 34.2 g/dL (32.0-36.0); MEAN CORPUSCULAR VOLUME 84 fl (80-97); PLATELET COUNT 153 10^3/uL (150-450); RED CELL DISTRIBUTION WIDTH 14.5 % (11.5-14.0); WHITE BLOOD COUNT 14.6 10^3/uL (4.0-10.5)
[2019-10-05 07:40] LABS: HEPATITIS C VIRUS AB <0.1 s/co ratio (0.0-0.9)
--- NOTE | 2019-10-05 08:46 | PDOC PROGRESS REPORT ---
Subjective Progress Note for:: 10/05/19 Subjective:: She reports that she is doing well. Reason For Visit: Physical Exam - Physical Exam Vital Signs: Intake & Output 10/04/19 10/05/19 10/06/19 06:59 06:59 06:59 Intake Total 473 Balance 473 Weight 128.2 kg General appearance: PRESENT: no acute distress, well-developed, well-nourished Vascular exam: PRESENT: normal capillary refill Result Laboratory Results: 10/05/19 06:26 10/03/19 19:38 10/05/19 06:26 WBC 14.6 H RBC 3.40 L Hgb 9.8 L Hct 28.5 L MCV 84 MCH 28.7 MCHC 34.2 RDW 14.5 H Plt Count 153 Assessment & Plan - Diagnosis (1) Pre-eclampsia superimposed on chronic hypertension Is this a current diagnosis for this admission?: Yes Plan: Stop the magnesium, continue bp meds, may move to the floor. - Time Time Spent with patient: 15-24 minutes
[2019-10-05] MEDS ORDERED: FAMOTIDINE 20 MG TABLET ONE (09:25)
[2019-10-05] MEDS ORDERED: SENNOSIDES/DOCUSATE 8.6-50 MG 1 EACH TABLET ONE (09:25)
[2019-10-05] MEDS ORDERED: FERROUS SULFATE 325 MG TABLET PO ONE (09:25)
[2019-10-05] MEDS ORDERED: DOCUSATE SODIUM 100 MG CAPSULE ONE (09:25)
[2019-10-05] MEDS ORDERED: PRENATAL VITAMIN W DHA CAPSULE PO ONE ×2 (09:25)
[2019-10-05] MEDS ORDERED: ASPIRIN 81 MG TABLET, CHEWABLE ONE (09:25)
[2019-10-05] MEDS: ASPIRIN 81 MG TABLET, CHEWABLE PO SCH (09:28)
[2019-10-05] MEDS: FAMOTIDINE 20 MG TABLET PO SCH ×2 (09:28→22:29)
[2019-10-05] MEDS: PRENATAL VITAMIN W DHA CAPSULE PO SCH (09:28)
[2019-10-05] MEDS: SENNOSIDES/DOCUSATE 8.6-50 MG 1 EACH TABLET PO SCH (09:28)
[2019-10-05] MEDS: FERROUS SULFATE 325 MG TABLET PO SCH ×2 (09:28→18:23)
[2019-10-05] MEDS: DOCUSATE SODIUM 100 MG CAPSULE PO SCH ×2 (09:28→18:23)
[2019-10-05] MEDS: AMLODIPINE BESYLATE 5 MG TABLET PO SCH (09:36)
[2019-10-06] MEDS ORDERED: HYDRALAZINE HCL INJ/PF 20 MG/1 ML SDV IV PRN (01:07)
[2019-10-06] MEDS ORDERED: LABETALOL HCL 200 MG TABLET ONE (05:52)
[2019-10-06] MEDS: LABETALOL HCL 200 MG TABLET PO SCH ×2 (06:03→13:26)
[2019-10-06] MEDS: BUPROPION HCL 100 MG TABLET PO SCH ×2 (06:04→13:25)
[2019-10-06] MEDS: IBUPROFEN 800 MG TABLET PO SCH ×2 (06:04→13:26)
[2019-10-06] MEDS: LEVOTHYROXINE SODIUM 0.112 MG TABLET PO SCH (06:04)
--- NOTE | 2019-10-06 09:20 | PDOC DISCHARGE SUMMARY ---
Impression - Admit/DC Date/PCP Admission Date/Primary Care Provider: 10/03/19 17:25 [place] BLACKMON MD Discharge Date: 10/06/19 - PP Day #2, s/p IOL at 34 wks for Pre-eclampsia, baby remains in the NICU. Pt w/out complaints this moring, will try to Nest. B+, rubella Immune - Discharge Diagnosis (1) 34 weeks gestation of Is this a current diagnosis for this admission?: Yes - Additional Information Resuscitation Status: Full Code Discharge Diet: As Tolerated, Regular Discharge Activity: Activity As Tolerated, No Lifting Over 10 Pounds, Pelvic Rest Referrals: [place] BLACKMON MD [Primary Care Provider] - Prescriptions: Labetalol HCl 300 mg PO TID 30 Days #90 Ibuprofen [Motrin 800 mg Tablet] 800 mg PO Q8 #60 tablet Home Medications: 95/Iron Fum/Folic/Dha [ + Dha Combo Pack] 1 tab PO DAILY 01/03/16 Amlodipine Besylate [Norvasc 5 mg Tablet] 1 tab PO DAILY 09/15/19 Desvenlafaxine [Desvenlafaxine ER] 100 mg PO DAILY 09/29/19 Levothyroxine Sodium [Levo-T] 112 mcg PO DAILY 09/29/19 Bupropion HCl [Bupropion Xl] 300 mg PO DAILY 10/03/19 Ibuprofen [Motrin 800 mg Tablet] 800 mg PO Q8 #60 tablet 10/06/19 Labetalol HCl 300 mg PO TID 30 Days #90 10/06/19 HPI Reason(s) for Admission: Induction of Labor, PIH Procedures: Ultrasound Intrapartum Procedure(s): Spontaneous Vaginal Delivery Hospital Course 59. Maternal Morbidity (serious complications experinced by the mother associated with labor and delivery: None of the above Results Laboratory Results: WBC 14.6 10^3/uL (4.0-10.5) H 10/05/19 06:26 RBC 3.40 10^6/uL (3.72-5.28) L 10/05/19 06:26 Hgb 9.8 g/dL (12.0-15.5) L 10/05/19 06:26 Hct 28.5 % (36.0-47.0) L 10/05/19 06:26 MCV 84 fl (80-97) 10/05/19 06:26 MCH 28.7 pg (27.0-33.4) 10/05/19 06:26 MCHC 34.2 g/dL (32.0-36.0) 10/05/19 06:26 RDW 14.5 % (11.5-14.0) H 10/05/19 06:26 Plt Count 153 10^3/uL (150-450) 10/05/19 06:26 Lymph % (Auto) 6.3 % (13-45) L 10/03/19 19:38 [place] % (Auto) 5.6 % (3-13) 10/03/19 19:38 Eos % (Auto) 0.0 % (0-6) 10/03/19 19:38 Baso % (Auto) 0.1 % (0-2) 10/03/19 19:38 Absolute Neuts (auto) 12.6 10^3/uL (1.7-8.2) H 10/03/19 19:38 Absolute Lymphs (auto) 0.9 10^3/uL (0.5-4.7) 10/03/19 19:38 Absolute Monos (auto) 0.8 10^3/uL (0.1-1.4) 10/03/19 19:38 Absolute Eos (auto) 0.0 10^3/uL (0.0-0.6) 10/03/19 19:38 Absolute Basos (auto) 0.0 10^3/uL (0.0-0.2) 10/03/19 19:38 Seg Neutrophils % 88.0 % (42-78) H 10/03/19 19:38 Sodium 135.7 mmol/L (137-145) L 10/03/19 19:38 Potassium 4.5 mmol/L (3.6-5.0) 10/03/19 19:38 Chloride 107 mmol/L (98-107) 10/03/19 19:38 Carbon Dioxide 23 mmol/L (22-30) 10/03/19 19:38 Anion Gap 6 (5-19) 10/03/19 19:38 BUN 12 mg/dL (7-20) 10/03/19 19:38 Creatinine 0.72 mg/dL (0.52-1.25) 10/03/19 19:38 Est GFR ( Amer) > 60 (>60) 10/03/19 19:38 Est GFR (MDRD) Non-Af > 60 (>60) 10/03/19 19:38 Glucose 140 mg/dL (75-110) H 10/03/19 19:38 Uric Acid 5.9 mg/dL (2.5-6.2) 10/03/19 19:38 Calcium 8.5 mg/dL (8.4-10.2) 10/03/19 19:38 Total Bilirubin 0.2 mg/dL (0.2-1.3) 10/03/19 19:38 Direct Bilirubin 0.2 mg/dL (0.0-0.4) 10/03/19 19:38 Neonat Total Bilirubin Not Reportable 10/03/19 19:38 Neonat Direct Bilirubin Not Reportable 10/03/19 19:38 Neonat Indirect Bili Not Reportable 10/03/19 19:38 AST 26 U/L (14-36) 10/03/19 19:38 ALT 21 U/L (<35) 10/03/19 19:38 Alkaline Phosphatase 104 U/L (38-126) 10/03/19 19:38 Lactate Dehydrogenase 188 U/L (120-246) 10/03/19 19:38 Total Protein 5.7 g/dL (6.3-8.2) L 10/03/19 19:38 Albumin 3.1 g/dL (3.5-5.0) L 10/03/19 19:38 Urine Opiates Screen NEGATIVE 10/03/19 11:30 Urine Methadone Screen NEGATIVE 10/03/19 11:30 Ur Barbiturates Screen NEGATIVE 10/03/19 11:30 Ur Phencyclidine Scrn NEGATIVE 10/03/19 11:30 Ur Amphetamines Screen NEGATIVE 10/03/19 11:30 U Benzodiazepines Scrn NEGATIVE 10/03/19 11:30 Urine Cocaine Screen NEGATIVE 10/03/19 11:30 U Marijuana (THC) Screen NEGATIVE 10/03/19 11:30 Chlamydia DNA (PCR) NOT DETECTED (NOT DETECT) 10/03/19 11:45 Hepatitis C ([place]) <0.1 s/co ratio (0.0-0.9) 10/03/19 19:38 Hep C Verif Com 1 Comment (.) 10/03/19 19:38 N.gonorrhoeae DNA (PCR) NOT DETECTED (NOT DETECT) 10/03/19 11:45 Rubella IgG Antibody 6.41 IU/mL 10/03/19 19:38 Rubella IgG Ab Interp NEGATIVE 10/03/19 19:38 Blood Type B POSITIVE 10/03/19 12:01 Antibody Screen NEGATIVE 10/03/19 12:01 Plan Health Concerns: watch BP Plan of Treatment: d/c home, f/up for BP check in one week with [facility]. Then 4 wks for PP check Time Spent: Less than 30 Minutes
[2019-10-06] MEDS: SENNOSIDES/DOCUSATE 8.6-50 MG 1 EACH TABLET PO SCH (09:40)
[2019-10-06] MEDS: FERROUS SULFATE 325 MG TABLET PO SCH (09:40)
[2019-10-06] MEDS: DOCUSATE SODIUM 100 MG CAPSULE PO SCH (09:40)
[2019-10-06] MEDS: ASPIRIN 81 MG TABLET, CHEWABLE PO SCH (09:40)
[2019-10-06] MEDS: FAMOTIDINE 20 MG TABLET PO SCH (09:41)
[2019-10-06] MEDS: AMLODIPINE BESYLATE 5 MG TABLET PO SCH (09:41)
[2019-10-06] MEDS: PRENATAL VITAMIN W DHA CAPSULE PO SCH (13:27)
[2019-10-06 14:45] VITALS: BP 165/89
== END 2019-10-06 17:00 | disposition home or self-care (01) | DRG 807 ==
LOC: LC 11:01 → LR 11:30 → OBSVTOIN 17:25 → 2S 10-05 01:30
PROVIDERS: ADMIT Student in an Organized Health Care Education/Training Program; ATTEND Student in an Organized Health Care Education/Training Program
PROC: 10E0XZZ Delivery of Products of Conception, External Approach (ICD-10-PCS; principal; 2019-10-04)
PROC: 3E033VJ Introduction of Other Hormone into Peripheral Vein, Percutaneous Approach (ICD-10-PCS; 2019-10-04)
PROC: 10907ZC Drainage of Amniotic Fluid, Therapeutic from Products of Conception, Via Natural or Artificial Opening (ICD-10-PCS; 2019-10-04)
DX: O11.4 Pre-existing hypertension with pre-eclampsia, complicating childbirth (principal); Z37.0 Single live birth; O99.344 Other mental disorders complicating childbirth; F32.9 Major depressive disorder, single episode, unspecified; O99.284 Endocrine, nutritional and metabolic diseases complicating childbirth; E03.9 Hypothyroidism, unspecified; K21.9 Gastro-esophageal reflux disease without esophagitis; O99.613 Diseases of the digestive system complicating pregnancy, third trimester; Z79.899 Other long term (current) drug therapy; Z87.891 Personal history of nicotine dependence; Z3A.34 34 weeks gestation of pregnancy
CPT/HCPCS: 36415; 80053; 80307; 83615; 84550; 85025; 85027; 86592; 86762; 86803; 86804; 86850; 86900; 86901; 87077; 87081; 87491; 87591; 94760; 96372; J0360; J0702; J2300; J2540; J2550; J2590; J3475; J3490; J7060